=== PATIENT | female | born 1935 | race American Indian/Alaskan Native ===

== ENCOUNTER 2016-11-27 21:49 | Emergency (ER) | payer MEDICARE ==
[2016-11-27 23:03] LABS: Hematocrit 34.7 % (30.3-42.9); Hemoglobin 10.7 gm/dl (10.1-14.3); Mean Corpuscular HGB Conc 31 % (30-34); Mean Corpuscular Hemoglobin 28 pg (28-32); Mean Corpuscular Volume 92 fl (79-97); Platelet Count 174 K/mm3 (140-440); Red Blood Count 3.78 M/mm3 (3.65-5.03); Red Cell Distribution Width 20.5 % (13.2-15.2); White Blood Count 5.7 K/mm3 (4.5-11.0)
[2016-11-27 23:18] LABS: BUN/Creatinine Ratio 5.09; Calcium 9.1 mg/dL (8.4-10.2); Chloride 96.4 mmol/L (98-107); Potassium 3.8 mmol/L (3.6-5.0)
[2016-11-28 00:38] LABS: Anisocytosis 1+; Basophils % (Manual) 0 % (0.0-1.8); Blastocytes % (Manual) 0 %; Diff Status Complete; Elliptocytes Few; Hypochromasia 1+
[2016-11-28 01:40] VITALS: BP 137/65
--- NOTE | 2016-11-30 18:46 | ED Elopement Review ---
ED Pt Elopement review - Results review Lab results: Laboratory Tests 11/27/16 11/27/16 11/28/16 22:44 22:44 01:40 WBC 5.7 RBC 3.78 Hgb 10.7 Hct 34.7 MCV 92 MCH 28 MCHC 31 RDW 20.5 H Plt Count 174 [place] % (Auto) Physically Impaired Teacher Add Manual Diff Complete Total Counted 100 Seg Neuts % (Manual) 55.0 Band Neutrophils % 3.0 Lymphocytes % (Manual) 23.0 Reactive Lymphs % (Man) 0 Monocytes % (Manual) 11.0 H Eosinophils % (Manual) 1.0 Basophils % (Manual) 0 Metamyelocytes % 7.0 Myelocytes % 0 Promyelocytes % 0 Blast Cells % 0 Nucleated RBC % Not Reportable Seg Neutrophils # Man 3.1 Band Neutrophils # 0.2 Lymphocytes # (Manual) 1.3 Abs React Lymphs (Man) 0.0 Monocytes # (Manual) 0.6 Eosinophils # (Manual) 0.1 Basophils # (Manual) 0.0 Metamyelocytes # 0.4 Myelocytes # 0.0 Promyelocytes # 0.0 Blast Cells # 0.0 WBC Morphology Not Reportable Hypersegmented Neuts Not Reportable Hyposegmented Neuts Not Reportable Hypogranular Neuts Not Reportable Smudge Cells Not Reportable Toxic Granulation Not Reportable Toxic Vacuolation Not Reportable Dohle Bodies Not Reportable Pelger-Huet Anomaly Not Reportable Reilly Rods Not Reportable Platelet Estimate Appears normal Clumped Platelets Not Reportable Plt Clumps, EDTA Not Reportable Large Platelets Not Reportable Giant Platelets Not Reportable Platelet Satelliting Not Reportable Plt Morphology Comment Not Reportable RBC Morphology Not Reportable Dimorphic RBCs Not Reportable Polychromasia Not Reportable Hypochromasia 1+ Poikilocytosis Not Reportable Anisocytosis 1+ Microcytosis Not Reportable Macrocytosis Not Reportable Spherocytes Not Reportable Pappenheimer Bodies Not Reportable Sickle Cells Not Reportable Target Cells Not Reportable Tear Drop Cells Not Reportable Ovalocytes Not Reportable Helmet Cells Not Reportable Goodrich-Obion Bodies Not Reportable [place] Rings Not Reportable Jayme Cells Not Reportable Bite Cells Not Reportable Crenated Cell Not Reportable Elliptocytes Few Acanthocytes (Spur) Not Reportable Rouleaux Not Reportable Hemoglobin C Crystals Not Reportable Schistocytes Not Reportable Malaria parasites Not Reportable Elia Bodies Not Reportable Hem Pathologist Commnt No Sodium 141 Potassium 3.8 Chloride 96.4 L Carbon Dioxide 31 H Anion Gap 17 BUN 27 H Creatinine 5.3 H Estimated GFR 9 BUN/Creatinine Ratio 5.09 Glucose 156 H Calcium 9.1 Troponin T 0.044 H 0.044 H Triglycerides 72 Cholesterol 145 LDL Cholesterol Direct 53 HDL Cholesterol 78 H Cholesterol/HDL Ratio 1.85 11/28/16 04:13 WBC RBC Hgb Hct MCV MCH MCHC RDW Plt Count [place] % (Auto) Add Manual Diff Total Counted Seg Neuts % (Manual) Band Neutrophils % Lymphocytes % (Manual) Reactive Lymphs % (Man) Monocytes % (Manual) Eosinophils % (Manual) Basophils % (Manual) Metamyelocytes % Myelocytes % Promyelocytes % Blast Cells % Nucleated RBC % Seg Neutrophils # Man Band Neutrophils # Lymphocytes # (Manual) Abs React Lymphs (Man) Monocytes # (Manual) Eosinophils # (Manual) Basophils # (Manual) Metamyelocytes # Myelocytes # Promyelocytes # Blast Cells # WBC Morphology Hypersegmented Neuts Hyposegmented Neuts Hypogranular Neuts Smudge Cells Toxic Granulation Toxic Vacuolation Dohle Bodies Pelger-Huet Anomaly Reilly Rods Platelet Estimate Clumped Platelets Plt Clumps, EDTA Large Platelets Giant Platelets Platelet Satelliting Plt Morphology Comment RBC Morphology Dimorphic RBCs Polychromasia Hypochromasia Poikilocytosis Anisocytosis Microcytosis Macrocytosis Spherocytes Pappenheimer Bodies Sickle Cells Target Cells Tear Drop Cells Ovalocytes Helmet Cells Goodrich-Obion Bodies [place] Rings Jayme Cells Bite Cells Crenated Cell Elliptocytes Acanthocytes (Spur) Rouleaux Hemoglobin C Crystals Schistocytes Malaria parasites Elia Bodies Hem Pathologist Commnt Sodium Potassium Chloride Carbon Dioxide Anion Gap BUN Creatinine Estimated GFR BUN/Creatinine Ratio Glucose Calcium Troponin T 0.043 H Triglycerides Cholesterol LDL Cholesterol Direct HDL Cholesterol Cholesterol/HDL Ratio - Call Back decision Pt Call Back Decision: Pt to F/U with PMD
== END 2016-11-28 05:30 | disposition left against medical advice (07) ==
LOC: ED 21:49
DX: R07.9 Chest pain, unspecified (principal); M79.605 Pain in left leg; Z53.21 Procedure and treatment not carried out due to patient leaving prior to being seen by health care provider
CPT/HCPCS: 36415; 80048; 80061; 84484; 85007; 85025; 93005; 93010

== ENCOUNTER 2016-12-19 05:18 | Inpatient (IN) | payer MEDICAID, MEDICARE ==
[2016-12-19] MEDS ORDERED: DUONEB 0.5 MG-3 MG/3 ML SOLN IH ONE ×3 (05:34→12:30)
[2016-12-19 06:02] LABS: Basophils % (Auto) 0.5 % (0.0-1.8); Eosinophils % (Auto) 1.2 % (0.0-4.3); Mean Corpuscular HGB Conc 31 % (30-34); Mean Corpuscular Hemoglobin 28 pg (28-32); Mean Corpuscular Volume 91 fl (79-97); Platelet Count 166 K/mm3 (140-440); Red Blood Count 4.06 M/mm3 (3.65-5.03); White Blood Count 6.8 K/mm3 (4.5-11.0)
[2016-12-19 06:03] LABS: Hemoglobin 11.3 gm/dl (10.1-14.3); Red Cell Distribution Width 20.8 % (13.2-15.2)
[2016-12-19 06:20] LABS: BUN/Creatinine Ratio 5.73; Calcium 8.6 mg/dL (8.4-10.2); Chloride 94.5 mmol/L (98-107); Potassium 5.2 mmol/L (3.6-5.0)
--- NOTE | 2016-12-19 06:27 | Emergency Department Report ---
ED Shortness of Breath HPI - General Chief Complaint: Dyspnea/Respdistress Stated Complaint: MILAN Time Seen by Provider: 12/19/16 06:13 Source: patient Mode of arrival: Ambulatory Limitations: Language Barrier - History of Present Illness Initial Comments: 81-year-old female presents to the emergency department via EMS for evaluation of shortness of breath. History is obtained from the patient's daughter due to a language barrier, patient only speaks Czech. Patient was scheduled for dialysis this morning per her usual routine. Upon awakening this morning at approximately 4 AM, the patient was having difficulty breathing. There was no chest pain. There has been no cough. There are no other complaints. MD Complaint: shortness of breath -: Sudden, This morning Time: 04:00 Severity: moderate Pain Scale: 0 Consistency: constant Improves With: nothing Worsens With: nothing Known History Of: congestive heart failure, diabetes Treatments Prior to Arrival: oxygen - Related Data Home Medications Medication Instructions Recorded Confirmed Last Taken Allopurinol [Zyloprim] 100 mg PO QDAY 12/13/14 12/05/16 11/14/15 Amlodipine Besylate [Norvasc] 10 mg PO DAILY 12/13/14 12/05/16 11/14/15 Cinacalcet HCl [Sensipar] 60 mg PO DAILY 12/13/14 12/05/16 11/14/15 Gabapentin 300 mg PO QDAY 12/13/14 12/05/16 11/14/15 Rosuvastatin (Nf) [Crestor] 20 mg PO QHS 12/13/14 12/05/16 11/14/15 Sevelamer Carbonate [Renvela] 800 mg PO TIDWM 12/13/14 12/05/16 11/14/15 Previous Rx's Medication Instructions Recorded Last Taken Type Pantoprazole [Protonix] 40 mg PO QDAY #30 tablet 12/09/16 Unknown Rx Allergies Allergy/AdvReac Type Severity Reaction Status Date / Time EDI Inhibitors Allergy Unknown Verified 08/26/15 11:37 chloroquine Allergy Itching Verified 12/13/14 09:27 Penicillins Allergy Unknown Verified 08/26/15 11:37 vancomycin Allergy Angioedema Verified 12/13/14 09:27 ED Review of Systems ROS: Stated complaint: MILAN Other details as noted in HPI Comment: All other systems reviewed and negative Respiratory: shortness of breath ED Past Medical Hx - Past Medical History Previous Medical History?: Yes Hx Hypertension: Yes Hx Heart Attack/AMI: No Hx Congestive Heart Failure: Yes Hx Diabetes: Yes Hx Deep Vein Thrombosis: No Hx Renal Disease: Yes (ESRD, dialysis Tues, Thurs, Sat) Additional medical history: gout, glaucoma, cataracts - Surgical History Past Surgical History?: Yes Hx Coronary Stent: No Hx Pacemaker: No Hx Internal Defibrillator: No Additional Surgical History: fistula to left upper thigh - Family History Family history: no significant - Social History Smoking Status: Never Smoker Substance Use Type: None - Medications Home Medications: Home Medications Medication Instructions Recorded Confirmed Last Taken Type Allopurinol [Zyloprim] 100 mg PO QDAY 12/13/14 12/05/16 11/14/15 History Amlodipine Besylate [Norvasc] 10 mg PO DAILY 12/13/14 12/05/16 11/14/15 History Cinacalcet HCl [Sensipar] 60 mg PO DAILY 12/13/14 12/05/16 11/14/15 History Gabapentin 300 mg PO QDAY 12/13/14 12/05/16 11/14/15 History Rosuvastatin (Nf) [Crestor] 20 mg PO QHS 12/13/14 12/05/16 11/14/15 History Sevelamer Carbonate [Renvela] 800 mg PO TIDWM 12/13/14 12/05/16 11/14/15 History Pantoprazole [Protonix] 40 mg PO QDAY #30 tablet 12/09/16 Unknown Rx ED Physical Exam - General Limitations: Language Barrier General appearance: alert, in distress (mild respiratory distress) - Head Head exam: Present: atraumatic, normocephalic - Eye Eye exam: Present: normal appearance, PERRL, EOMI - ENT ENT exam: Present: normal exam, normal orophraynx, mucous membranes moist - Neck Neck exam: Present: normal inspection, full ROM. Absent: tenderness - Respiratory Respiratory exam: Present: respiratory distress (mild tachypnea), wheezes ( diffuse anterior) - Cardiovascular Cardiovascular Exam: Present: regular rate, normal rhythm, normal heart sounds - GI/Abdominal GI/Abdominal exam: Present: soft, normal bowel sounds. Absent: distended, tenderness - Extremities Exam Extremities exam: Present: normal inspection, full ROM. Absent: tenderness - Back Exam Back exam: Present: normal inspection, full ROM. Absent: tenderness - Neurological Exam Neurological exam: Present: alert, oriented X3. Absent: motor sensory deficit - Skin Skin exam: Present: warm, dry, intact ED Course Vital Signs 12/19/16 12/19/16 12/19/16 05:25 05:27 05:29 Pulse Rate 91 H 90 90 Pulse Rate [ Anterior Bilateral Throughout] Respiratory 23 24 23 Rate Respiratory Rate [Anterior Bilateral Throughout] Blood Pressure 198/96 198/96 O2 Sat by Pulse 94 91 94 Oximetry 12/19/16 12/19/16 12/19/16 05:30 05:31 05:35 Pulse Rate 90 89 Pulse Rate [ Anterior Bilateral Throughout] Respiratory 25 H 23 Rate Respiratory Rate [Anterior Bilateral Throughout] Blood Pressure 200/96 200/96 O2 Sat by Pulse 93 94 95 Oximetry 12/19/16 12/19/16 12/19/16 05:40 05:58 06:25 Pulse Rate 89 Pulse Rate [ 89 89 Anterior Bilateral Throughout] Respiratory 20 Rate Respiratory 25 H 22 Rate [Anterior Bilateral Throughout] Blood Pressure O2 Sat by Pulse 96 Oximetry ED Medical Decision Making - Lab Data Result diagrams: 12/19/16 05:47 12/19/16 05:47 - EKG Data -: EKG Interpreted by Me EKG shows normal: sinus rhythm, axis, intervals, QRS complexes, ST-T waves Rate: normal - EKG Data When compared to previous EKG there are: no significant change Interpretation: normal EKG, unchanged when compared t (12/05/2016) - Radiology Data Radiology results: image reviewed interpreted by me: Chest x-ray reveals mild pulmonary edema with unchanged probable left pleural effusion. - Medical Decision Making Lab and imaging results reviewed and discussed with the patient's family. I have spoken with Dr. Beasley, nephrology. Patient is being arranged for inpatient dialysis. Patient is to be admitted by the hospitalist. - Differential Diagnosis volume overload, CHF, electrolyte abnormality Critical care attestation.: If time is entered above; I have spent that time in minutes in the direct care of this critically ill patient, excluding procedure time. ED Disposition Clinical Impression: ESRD needing dialysis Volume overload Qualifiers: Hypervolemia type: other Qualified Code(s): E87.79 - Other fluid overload Disposition: OP ADMITTED IP TO THIS HOSP Is pt being admited?: Yes Condition: Stable Referrals: PRIMARY CARE, [Primary Care Provider] - 3-5 Days Time of Disposition: 06:48
[2016-12-19 06:49] LABS: ISTAT Base Excess 7; ISTAT HCO3 31.9; ISTAT PCO2 52.1 (35-45); ISTAT PH 7.395 (7.35-7.45); ISTAT PO2 53 (80-105); ISTAT SO2 86; ISTAT TCO2 33
--- NOTE | 2016-12-19 06:50 | Admit Criteria Form ---
Admission Criteria Documentation: HEART FAILURE: COMMON COMPLICATIONS Clinical Indications for Inpatient Care (Place 'X' for any and all applicable criteria): Ongoing inpatient care may be indicated for heart failure with ANY ONE of the following (1)(2)(3)(4)(5): [ ]I. Ongoing need for care for primary condition requiring frequent therapy adjustments because of changes in cardiac function (eg, drug dosage changes for drugs that are renally metabolized) [ ]II. New-onset heart failure [ ]III. Heart failure with decreased urine output not responsive to attempts to optimize volume status [ ]IV. Acute cardiac ischemia causing or associated with failure [X ]V. Complications of heart failure, including ANY ONE of the following: [ ]a) Pericardial effusion [ ]b) Symptomatic pleural effusion [ ]c) O2 saturation <90% or PO2 < 60 mm Hg (8.0 kPa) on room air or require baseline supplemental O2 [ ]d) Tachypnea [X ]e) Dyspnea [ ]f) Syncope [ ]g) Change in mental status [ ]h) Acute renal insufficiency that is severe (reduction of more than 50% in estimated glomerular filtration rate from baseline) or progressive reduction of more than 25% in estimated glomerular filtration rate from baseline, with creatinine continuing to rise) [ ]i) Hemodynamic instability [ ]j) Anasarca [ ]k) Clinically significant metabolic abnormalities due to heart failure (eg, new-onset metabolic acidosis) Extended stay beyond goal length of stay for primary condition may be needed until ALL of the following are present(1)(3): [ ]a) Stable and effective diuretic regimen established (or patient on stable dialysis regimen if in chronic renal failure) [ ]b) Breathing comfortably at rest [ ]c) Saturation of arterial oxygen greater than 90% or at acceptable baseline [ ]d) Pulmonary edema absent or improved [ ]e) Hemodynamic stability [ ]f) Volume status acceptable on oral medication [ ]g) Peripheral or sacral edema absent or improved [ ]h) Renal function stable and manageable at a lower level of care [ ]i) Complications (eg, pleural effusion) resolved or manageable at a lower level of care [ ]j) Patient or caregiver has received written discharge instructions or educational material addressing activity level, diet, discharge medications, follow-up appointment, weight monitoring, and what to do if symptoms worsen The original [employer] [email or web address] content created by [employer] has been revised. The portions of the content which have been revised are identified through the use of italic text or in bold, and [facility] has neither reviewed nor approved the modified material.All other unmodified content is copyright [facility]. Please see references footnoted in the original [facility] edition 2016 Admission Criteria Met: Yes
--- NOTE | 2016-12-19 06:51 | Admit Criteria Form ---
Admission Criteria Documentation: RENAL FAILURE, CHRONIC Clinical Indications for Admission to Inpatient Care (Place 'X' for any and all applicable criteria): Admission is indicated for ANY ONE of the following (1)(2)(3)(4)(5): [X]I. Inpatient admission required rather than observation care (Use Renal Failure, Chronic: Observation Care Criteria as appropriate) because of ANY ONE of the following: [X]a)Volume overload or uremic symptoms (eg, clinically significant pulmonary edema, hypertension, pericarditis, acidosis) too severe for, or not responsive (eg, for over 24 hours) to emergency department or observation care dialysis or treatment regimen (11) [ ]b) Hemodynamic instability that is severe or persistent [ ]c) Respiratory distress that is severe or persistent (11) [ ]d) Clinically significant electrolyte abnormality that requires inpatient care (eg,hyperkalemia with severe ECG findings)[B] [ ]e) Supplement O2 or respiratory therapy for over 24hrs that is performable only in acute inpatient setting [ ]f) Continuous IV infusion of anticoagulation, platelet inhibitor, vasoactive, or Antiarrhythmic medication (15), [ ]g) Pulmonary artery catheter monitoring [ ]h) Temporary pacemaker placement [ ]i) Emergent pericardiocentesis [ ]j) Other condition, treatment or monitoring requiring inpatient admission [ ]II. Unexplained syncope [A] [ ]III. Recurrent seizures [ ]IV. Severe infections not treatable in outpatient setting (eg, peritonitis)(9 ) [ ]V. Cardiac arrhythmias of immediate concern [ ]. Encephalopathy [ ]VII.Bleeding abnormalities (eg, platelet dysfunction) with active (eg, gastrointestinal) bleeding Extended stay beyond goal length of stay may be needed for (3)(4)(35)(36): [ ]a) Continuing uremic complications [ ]b) Comorbidities or complications The original [employer] content created by [employer] has been revised. The portions of the content which have been revised are identified through the use of italic text or in bold, and [facility] [email or web address] has neither reviewed nor approved the modified material. All other unmodified content is copyright [employer]. Please see references footnoted in the original [employer] edition 2016
[2016-12-19] MEDS ORDERED: NACL 0.9% 100 ML IV PRN (07:10)
--- NOTE | 2016-12-19 07:33 | XRay Report ---
Single view chest: Compared to 12/06/16. History: Shortness of breath. Findings: Marked cardiomegaly. Trachea is midline. Pleural diaphragmatic adhesions the left lung. Suspicion of segmental atelectasis or pneumonitis right lower lobe. Impression: Suspicion of atelectasis or pneumonitis right lower lobe.
--- NOTE | 2016-12-19 08:02 | History and Physical Report ---
History of Present Illness Date of examination: 12/19/16 History of present illness: 81-year-old female presents to the emergency department via EMS for evaluation of shortness of breath. History is obtained from the patient's daughter due to a language barrier, patient only speaks Czech. Patient was scheduled for dialysis this morning per her usual routine. Upon awakening this morning at approximately 4 AM, the patient was having difficulty breathing. There was no chest pain. There has been no cough. There are no other complaints. Past History Past Medical History: hypertension, hyperlipidemia Medications and Allergies Allergies Allergy/AdvReac Type Severity Reaction Status Date / Time EDI Inhibitors Allergy Unknown Verified 08/26/15 11:37 chloroquine Allergy Itching Verified 12/13/14 09:27 Penicillins Allergy Unknown Verified 08/26/15 11:37 vancomycin Allergy Angioedema Verified 12/13/14 09:27 Home Medications Medication Instructions Recorded Confirmed Last Taken Type Allopurinol [Zyloprim] 100 mg PO QDAY 12/13/14 12/05/16 11/14/15 History Amlodipine Besylate [Norvasc] 10 mg PO DAILY 12/13/14 12/05/16 11/14/15 History Cinacalcet HCl [Sensipar] 60 mg PO DAILY 12/13/14 12/05/16 11/14/15 History Gabapentin 300 mg PO QDAY 12/13/14 12/05/16 11/14/15 History Rosuvastatin (Nf) [Crestor] 20 mg PO QHS 12/13/14 12/05/16 11/14/15 History Sevelamer Carbonate [Renvela] 800 mg PO TIDWM 12/13/14 12/05/16 11/14/15 History Pantoprazole [Protonix] 40 mg PO QDAY #30 tablet 12/09/16 Unknown Rx Active Meds: Active Medications Sodium Chloride (Nacl 0.9%) 100 mls @ 999 mls/hr IV SIM PRN PRN Reason: Hypotension Exam - Constitutional Vitals: Temp Pulse Resp BP Pulse Ox 89 20 200/96 96 12/19/16 06:25 12/19/16 06:25 12/19/16 05:31 12/19/16 06:25 Results - Labs CBC & Chem 7: 12/19/16 05:47 12/19/16 05:47 Labs: Laboratory Last Values WBC 6.8 K/mm3 (4.5-11.0) 12/19/16 05:47 RBC 4.06 M/mm3 (3.65-5.03) 12/19/16 05:47 Hgb 11.3 gm/dl (10.1-14.3) 12/19/16 05:47 Hct 37.0 % (30.3-42.9) 12/19/16 05:47 MCV 91 fl (79-97) 12/19/16 05:47 MCH 28 pg (28-32) 12/19/16 05:47 MCHC 31 % (30-34) 12/19/16 05:47 RDW 20.8 % (13.2-15.2) H 12/19/16 05:47 Plt Count 166 K/mm3 (140-440) 12/19/16 05:47 Lymph % (Auto) 9.3 % (13.4-35.0) L 12/19/16 05:47 [place] % (Auto) 15.2 % (0.0-7.3) H 12/19/16 05:47 Eos % (Auto) 1.2 % (0.0-4.3) 12/19/16 05:47 Baso % (Auto) 0.5 % (0.0-1.8) 12/19/16 05:47 Lymph # 0.6 K/mm3 (1.2-5.4) L 12/19/16 05:47 [place] # 1.0 K/mm3 (0.0-0.8) H 12/19/16 05:47 Eos # 0.1 K/mm3 (0.0-0.4) 12/19/16 05:47 Baso # 0.0 K/mm3 (0.0-0.1) 12/19/16 05:47 Seg Neutrophils % 73.8 % (40.0-70.0) H 12/19/16 05:47 Seg Neutrophils # 5.0 K/mm3 (1.8-7.7) 12/19/16 05:47 POC ABG pH 7.395 (7.35-7.45) 12/19/16 06:28 POC ABG pCO2 52.1 (35-45) H 12/19/16 06:28 POC ABG pO2 53 (80-105) L 12/19/16 06:28 POC ABG HCO3 31.9 12/19/16 06:28 POC ABG Total CO2 33 12/19/16 06:28 POC ABG O2 Sat 86 12/19/16 06:28 POC ABG Base Excess 7 12/19/16 06:28 FiO2 32 % 12/19/16 06:28 Sodium 139 mmol/L (137-145) 12/19/16 05:47 Potassium 5.2 mmol/L (3.6-5.0) H 12/19/16 05:47 Chloride 94.5 mmol/L (98-107) L 12/19/16 05:47 Carbon Dioxide 30 mmol/L (22-30) 12/19/16 05:47 Anion Gap 20 mmol/L 12/19/16 05:47 BUN 47 mg/dL (7-17) H 12/19/16 05:47 Creatinine 8.2 mg/dL (0.7-1.2) H 12/19/16 05:47 Estimated GFR 6 ml/min 12/19/16 05:47 BUN/Creatinine Ratio 5.73 % 12/19/16 05:47 Glucose 116 mg/dL (65-100) H 12/19/16 05:47 Calcium 8.6 mg/dL (8.4-10.2) 12/19/16 05:47 Troponin T 0.037 ng/mL (0.00-0.029) H 12/19/16 05:47 Triglycerides 41 mg/dL (2-149) 12/19/16 05:47 Cholesterol 144 mg/dL (50-199) 12/19/16 05:47 LDL Cholesterol Direct 56 mg/dL (50-130) 12/19/16 05:47 HDL Cholesterol 80 mg/dL (40-59) H 12/19/16 05:47 Cholesterol/HDL Ratio 1.80 % 12/19/16 05:47
[2016-12-19] MEDS ORDERED: TYLENOL PO PRN (08:05)
[2016-12-19] MEDS ORDERED: PERCOCET 5/325 PO PRN (08:05)
[2016-12-19] MEDS ORDERED: MILK OF MAGNESIA PO PRN (08:05)
[2016-12-19] MEDS ORDERED: ZOFRAN IV PRN (08:05)
[2016-12-19] MEDS ORDERED: DULCOLAX PR PRN (08:05)
[2016-12-19] MEDS ORDERED: NON-FORMULARY (Amlodipine Besylate [Norvasc] 10 MG) PO SCH (10:00)
[2016-12-19] MEDS ORDERED: NON-FORMULARY (Cinacalcet Hcl [Sensipar] 60 MG) PO SCH (10:00)
[2016-12-19] MEDS ORDERED: NACL 0.9 (PRIMING MACHINE ONLY DIALYSIS) MC ONE (13:15)
[2016-12-19] MEDS: RENVELA PO SCH ×2 (15:53→18:40)
[2016-12-19] MEDS: LOVENOX SUB-Q SCH (15:53)
[2016-12-19] MEDS: NORVASC PO SCH (15:54)
[2016-12-19] MEDS: ZYLOPRIM PO SCH (15:54)
[2016-12-19] MEDS: PROTONIX PO SCH (15:55)
[2016-12-19] MEDS: SENSIPAR PO SCH (15:57)
[2016-12-19] MEDS ORDERED: PROVENTIL IH PRN (16:00)
--- NOTE | 2016-12-19 16:01 | Consultation ---
History of Present Illness - Reason for Consult Consult date: 12/19/16 end stage renal disease Requesting physician: GLORIA TOWNSEND - History of Present Illness 81-year-old female presents to the emergency department via EMS for evaluation of shortness of breath. Patient unable to give any history at this time because of language barrier. Information obtained from patient's current chart. Upon awakening this morning at approximately 4 AM, the patient was having difficulty breathing. There was no chest pain. There has been no cough. There are no other complaints. Patient is currently finishing up dialysis. She appears comfortable now. Chest x-ray noted to show some pulmonary infiltrates. Past History Past Medical History: hypertension, hyperlipidemia Past Surgical History: Other (unknown. Patient does have a left thigh graft) Social history: other (unknown) Family history: other (unknown) Medications and Allergies Allergies Allergy/AdvReac Type Severity Reaction Status Date / Time EDI Inhibitors Allergy Unknown Verified 08/26/15 11:37 chloroquine Allergy Itching Verified 12/13/14 09:27 Penicillins Allergy Unknown Verified 08/26/15 11:37 vancomycin Allergy Angioedema Verified 12/13/14 09:27 Home Medications Medication Instructions Recorded Confirmed Last Taken Type Allopurinol [Zyloprim] 100 mg PO QDAY 12/13/14 12/19/16 11/14/15 History Amlodipine Besylate [Norvasc] 10 mg PO DAILY 12/13/14 12/19/16 11/14/15 History Cinacalcet HCl [Sensipar] 60 mg PO DAILY 12/13/14 12/19/16 11/14/15 History Gabapentin 300 mg PO QDAY 12/13/14 12/19/16 11/14/15 History Rosuvastatin (Nf) [Crestor] 20 mg PO QHS 12/13/14 12/19/16 11/14/15 History Sevelamer Carbonate [Renvela] 800 mg PO TIDWM 12/13/14 12/19/16 11/14/15 History Pantoprazole [Protonix] 40 mg PO QDAY #30 tablet 12/09/16 12/19/16 Unknown Rx Active Meds: Active Medications Acetaminophen (Tylenol) 650 mg PO Q4H PRN PRN Reason: Pain MILD(1-3)/Fever >100.5/MEADE Albuterol (Proventil) 2.5 mg IH Q4HRT PRN PRN Reason: Shortness Of Breath Albuterol/Ipratropium (Duoneb 0.5 Mg-3 Mg/3 Ml Soln) 1 ampul IH TIDRT [facility] Allopurinol (Zyloprim) 100 mg PO QDAY [facility] Last Admin: 12/19/16 15:54 Dose: 100 mg Amlodipine Besylate (Norvasc) 10 mg PO DAILY [facility] Last Admin: 12/19/16 15:54 Dose: 10 mg Atorvastatin Calcium (Lipitor) 20 mg PO QHS [facility] Bisacodyl (Dulcolax) 10 mg [place] QDAY PRN PRN Reason: Constipation unrelieved by MOM Cinacalcet (Sensipar) 60 mg PO QDAY [facility] Enoxaparin Sodium (Lovenox) 30 mg SUB-Q QDAY [facility] Last Admin: 12/19/16 15:53 Dose: 30 mg Gabapentin (Neurontin) 300 mg PO QDAY [facility] Sodium Chloride (Nacl 0.9%) 100 mls @ 999 mls/hr IV SIM PRN PRN Reason: Hypotension Magnesium Hydroxide (Milk Of Magnesia) 30 ml PO Q4H PRN PRN Reason: Constipation Ondansetron HCl (Zofran) 4 mg IV Q8H PRN PRN Reason: N/V unrelieved by Reglan Oxycodone/Acetaminophen (Percocet 5/325) 1 tab PO Q6H PRN PRN Reason: Pain, Moderate (4-6) Pantoprazole Sodium (Protonix) 40 mg PO QDAY [facility] Last Admin: 12/19/16 15:55 Dose: 40 mg Sevelamer Carbonate (Renvela) 800 mg PO TIDWM [facility] Last Admin: 12/19/16 15:53 Dose: 800 mg Review of Systems All systems: negative (unable to obtain details due to language barrier) Exam - Vital Signs Vital signs: Vital Signs Pulse Resp Pulse Ox 91 H 23 94 12/19/16 05:25 12/19/16 05:25 12/19/16 05:25 - General Appearance General appearance: well-developed, well-nourished, appears stated age, other ( currently has 40% Ventimask in place) EENT: PERRL, mucous membranes moist Neck: Present: neck supple, trachea midline. Absent: JVD/HJR, Masses Respiratory: Clear to Ascultation Heart: regular, normal heart rate, S1S2, no murmurs Gastrointestinal: Present: normal, normoactive bowel sounds Integumentary: no rash, other (left thigh AV graft. Cannulated for dialysis) Results - Lab Results 12/19/16 05:47 12/19/16 05:47 Most recent lab results Calcium 8.6 mg/dL (8.4-10.2) 12/19/16 05:47 Assessment and Plan Impression * End-stage renal disease on maintenance hemodialysis * Shortness of breath. Most likely secondary to volume overload as well as pneumonia * Mild hyperkalemia * Hypertension * Hyperlipidemia * Anemia secondary to ESRD Recommendations * Hemodialysis as being done. Remove fluid as tolerated * Antibiotic therapy as per primary team * Adjust diet and meds for ESRD state * Avoid nephrotoxins * Procrit with dialysis * Binders with diet * Thank you very much for the consultation. Shall follow along with you
[2016-12-19] MEDS: NEURONTIN PO SCH (16:09)
--- NOTE | 2016-12-19 17:59 | History and Physical Report ---
History of Present Illness Date of examination: 12/19/16 Date of admission: 12/19/16 06:49 Chief complaint: Shortness of breath History of present illness: [age]-year-old female with a history of hypertension, end-stage renal disease, gout, questionable congestive heart failure presents to the ED with a chief complaint of shortness of breath. Patient states she awakened 4:00 this morning with difficulty breathing. Therefore patient presented to ED. Upon presentation patient did not chest pain denied palpitations however complained of shortness of breath and dyspnea on minimal exertion. Patient was uncomfortable placed on BiPAP and remained stable. Follow-up exam after hemodialysis patient feels much better able to communicate and answer the questions above. Past History Past Medical History: DVT, ESRD, GERD, heart failure, hypertension, hyperlipidemia. denies: acute DC, atrial fib, arrhythmia, anemia, arthritis, CAD, COPD Past Surgical History: Other (unknown. Patient does have a left thigh graft) Social history: other (unknown). denies: single, Family history: other (unknown) Medications and Allergies Allergies Allergy/AdvReac Type Severity Reaction Status Date / Time EDI Inhibitors Allergy Unknown Verified 08/26/15 11:37 chloroquine Allergy Itching Verified 12/13/14 09:27 Penicillins Allergy Unknown Verified 08/26/15 11:37 vancomycin Allergy Angioedema Verified 12/13/14 09:27 Home Medications Medication Instructions Recorded Confirmed Last Taken Type Allopurinol [Zyloprim] 100 mg PO QDAY 12/13/14 12/19/16 11/14/15 History Amlodipine Besylate [Norvasc] 10 mg PO DAILY 12/13/14 12/19/16 11/14/15 History Cinacalcet HCl [Sensipar] 60 mg PO DAILY 12/13/14 12/19/16 11/14/15 History Gabapentin 300 mg PO QDAY 12/13/14 12/19/16 11/14/15 History Rosuvastatin (Nf) [Crestor] 20 mg PO QHS 12/13/14 12/19/16 11/14/15 History Sevelamer Carbonate [Renvela] 800 mg PO TIDWM 12/13/14 12/19/16 11/14/15 History Pantoprazole [Protonix] 40 mg PO QDAY #30 tablet 03/13/17 03/23/17 Unknown Rx Active Meds: Active Medications Acetaminophen (Tylenol) 650 mg PO Q4H PRN PRN Reason: Pain MILD(1-3)/Fever >100.5/MEADE Albuterol (Proventil) 2.5 mg IH Q4HRT PRN PRN Reason: Shortness Of Breath Albuterol/Ipratropium (Duoneb 0.5 Mg-3 Mg/3 Ml Soln) 1 ampul IH TIDRT [facility] Allopurinol (Zyloprim) 100 mg PO QDAY [facility] Last Admin: 12/19/16 15:54 Dose: 100 mg Amlodipine Besylate (Norvasc) 10 mg PO DAILY [facility] Last Admin: 12/19/16 15:54 Dose: 10 mg Atorvastatin Calcium (Lipitor) 20 mg PO QHS [facility] Bisacodyl (Dulcolax) 10 mg [place] QDAY PRN PRN Reason: Constipation unrelieved by MOM Cinacalcet (Sensipar) 60 mg PO QDAY [facility] Last Admin: 12/19/16 15:57 Dose: 60 mg Enoxaparin Sodium (Lovenox) 30 mg SUB-Q QDAY [facility] Last Admin: 12/19/16 15:53 Dose: 30 mg Gabapentin (Neurontin) 300 mg PO QDAY [facility] Last Admin: 12/19/16 16:09 Dose: 300 mg Sodium Chloride (Nacl 0.9%) 100 mls @ 999 mls/hr IV SIM PRN PRN Reason: Hypotension Magnesium Hydroxide (Milk Of Magnesia) 30 ml PO Q4H PRN PRN Reason: Constipation Ondansetron HCl (Zofran) 4 mg IV Q8H PRN PRN Reason: N/V unrelieved by Reglan Oxycodone/Acetaminophen (Percocet 5/325) 1 tab PO Q6H PRN PRN Reason: Pain, Moderate (4-6) Pantoprazole Sodium (Protonix) 40 mg PO QDAY [facility] Last Admin: 12/19/16 15:55 Dose: 40 mg Sevelamer Carbonate (Renvela) 800 mg PO TIDWM [facility] Last Admin: 12/19/16 15:53 Dose: 800 mg Review of Systems Constitutional: fatigue, weakness, malaise, no weight loss, no weight gain, no fever, no chills, no poor appetite Ears, nose, mouth and throat: no deferred, no ear pain, no tinnitis, no nose pain, no nasal congestion, no epistaxis, no bleeding gums, no mouth pain, no hoarseness, no sore throat Breasts: deferred Cardiovascular: shortness of breath, dyspnea on exertion, no chest pain, no orthopnea, no palpitations, no rapid/irregular heart beat, no edema, no syncope , no lightheadedness, no paroxysmal nocturnal dyspnea, no claudication, no phlebitis, no high blood pressure Respiratory: shortness of breath, dyspnea on exertion, congestion, no cough, no cough with sputum, no excessive sputum, no hemoptysis, no wheezing, no pleurisy , no pain, no pain on inspiration, no sleep apnea, no home oxygen Gastrointestinal: no abdominal pain, no vomiting, no constipation, no BRBPR, no hematochezia, no loss of appetite, no early satiety Genitourinary Female: no dysmenorrhea, no flank pain, no incomplete emptying, no urge incontinence, no vaginal discharge Exam - Constitutional Vitals: Temp Pulse Resp BP Pulse Ox 98.9 F 79 20 123/65 99 12/19/16 15:00 12/19/16 15:00 12/19/16 15:00 12/19/16 15:00 12/19/16 12:39 General appearance: Present: mild distress - EENT Eyes: Present: PERRL ENT: hearing intact, clear oral mucosa - Neck Neck: Present: supple, normal ROM - Respiratory Respiratory effort: normal Respiratory: bilateral: diminished, rales - Cardiovascular Rhythm: regular Heart Sounds: Present: S1 & S2, systolic murmur - Extremities Extremities: pulses symmetrical, No edema Extremity abnormal: edema, other (S1 pitting edema) Peripheral Pulses: within normal limits - Abdominal General gastrointestinal: Present: soft, non-tender, non-distended, normal bowel sounds - Rectal Rectal Exam: deferred - Integumentary Integumentary: Present: clear, warm, dry - Musculoskeletal Musculoskeletal: gait normal, strength equal bilaterally - Psychiatric Psychiatric: appropriate mood/affect, intact judgment & insight - Neurologic Neurologic: CNII-XII intact Results - Labs CBC & Chem 7: 12/19/16 05:47 12/19/16 05:47 Labs: Laboratory Last Values WBC 6.8 K/mm3 (4.5-11.0) 12/19/16 05:47 RBC 4.06 M/mm3 (3.65-5.03) 12/19/16 05:47 Hgb 11.3 gm/dl (10.1-14.3) 12/19/16 05:47 Hct 37.0 % (30.3-42.9) 12/19/16 05:47 MCV 91 fl (79-97) 12/19/16 05:47 MCH 28 pg (28-32) 12/19/16 05:47 MCHC 31 % (30-34) 12/19/16 05:47 RDW 20.8 % (13.2-15.2) H 12/19/16 05:47 Plt Count 166 K/mm3 (140-440) 12/19/16 05:47 Lymph % (Auto) 9.3 % (13.4-35.0) L 12/19/16 05:47 [place] % (Auto) 15.2 % (0.0-7.3) H 12/19/16 05:47 Eos % (Auto) 1.2 % (0.0-4.3) 12/19/16 05:47 Baso % (Auto) 0.5 % (0.0-1.8) 12/19/16 05:47 Lymph # 0.6 K/mm3 (1.2-5.4) L 12/19/16 05:47 [place] # 1.0 K/mm3 (0.0-0.8) H 12/19/16 05:47 Eos # 0.1 K/mm3 (0.0-0.4) 12/19/16 05:47 Baso # 0.0 K/mm3 (0.0-0.1) 12/19/16 05:47 Seg Neutrophils % 73.8 % (40.0-70.0) H 12/19/16 05:47 Seg Neutrophils # 5.0 K/mm3 (1.8-7.7) 12/19/16 05:47 POC ABG pH 7.395 (7.35-7.45) 12/19/16 06:28 POC ABG pCO2 52.1 (35-45) H 12/19/16 06:28 POC ABG pO2 53 (80-105) L 12/19/16 06:28 POC ABG HCO3 31.9 12/19/16 06:28 POC ABG Total CO2 33 12/19/16 06:28 POC ABG O2 Sat 86 12/19/16 06:28 POC ABG Base Excess 7 12/19/16 06:28 FiO2 32 % 12/19/16 06:28 Sodium 139 mmol/L (137-145) 12/19/16 05:47 Potassium 5.2 mmol/L (3.6-5.0) H 12/19/16 05:47 Chloride 94.5 mmol/L (98-107) L 12/19/16 05:47 Carbon Dioxide 30 mmol/L (22-30) 12/19/16 05:47 Anion Gap 20 mmol/L 12/19/16 05:47 BUN 47 mg/dL (7-17) H 12/19/16 05:47 Creatinine 8.2 mg/dL (0.7-1.2) H 12/19/16 05:47 Estimated GFR 6 ml/min 12/19/16 05:47 BUN/Creatinine Ratio 5.73 % 12/19/16 05:47 Glucose 116 mg/dL (65-100) H 12/19/16 05:47 Calcium 8.6 mg/dL (8.4-10.2) 12/19/16 05:47 Troponin T 0.037 ng/mL (0.00-0.029) H 12/19/16 05:47 Triglycerides 41 mg/dL (2-149) 12/19/16 05:47 Cholesterol 144 mg/dL (50-199) 12/19/16 05:47 LDL Cholesterol Direct 56 mg/dL (50-130) 12/19/16 05:47 HDL Cholesterol 80 mg/dL (40-59) H 12/19/16 05:47 Cholesterol/HDL Ratio 1.80 % 12/19/16 05:47 - Imaging and Cardiology EKG: image reviewed Chest x-ray: image reviewed Assessment and Plan Advance Directives: Yes Plan of care discussed with patient/family: Yes - Patient Problems (1) ESRD needing dialysis Current Visit: Yes Status: Acute Plan to address problem: End-stage renal disease patient undergoes dialysis Friday. Obtain renal consult. (2) Volume overload Current Visit: Yes Status: Acute Qualifiers: Hypervolemia type: other Qualified Code(s): E87.79 - Other fluid overload Plan to address problem: Volume overload most likely secondary to limited hemodialysis versus a pneumonia. Patient was chest x-ray consistent with bilateral infiltrates. Could be pneumonia versus volume overload from renal failure. We'll treat with empiric antibodies and hemodialysis. (3) Acute on chronic systolic CHF (congestive heart failure) Current Visit: No Status: Acute Plan to address problem: At this particular time patient has no JVD no lymphadenopathy only trace edema. Physical exam is not consistent with acute congestive heart failure at this particular time points more toward renal failure and volume overload. (4) ESRD (end stage renal disease) Current Visit: No Status: Acute (5) Pneumonia Current Visit: Yes Status: Acute Qualifiers: Pneumonia type: P Aspiration pneumonia type: A Laterality: L Lung location: L Plan to address problem: Patient possibly with pneumonia with infiltrates. We'll treat empirically with Rocephin for now. After she's diuresis can obtain another chest x-ray and see whether or not the infiltrates have resolved.
[2016-12-19] MEDS: DUONEB 0.5 MG-3 MG/3 ML SOLN IH SCH ×2 (18:25→20:30)
[2016-12-19] MEDS ORDERED: NON-FORMULARY (Rosuvastatin (Nf) 20 MG) PO SCH (22:00)
[2016-12-20 06:48] LABS: Hematocrit 33.5 % (30.3-42.9); Hemoglobin 10.2 gm/dl (10.1-14.3); Mean Corpuscular HGB Conc 31 % (30-34); Mean Corpuscular Hemoglobin 28 pg (28-32); Mean Corpuscular Volume 91 fl (79-97); Platelet Count 148 K/mm3 (140-440); Red Blood Count 3.67 M/mm3 (3.65-5.03); White Blood Count 7.2 K/mm3 (4.5-11.0)
[2016-12-20 06:50] LABS: Red Cell Distribution Width 21.3 % (13.2-15.2)
[2016-12-20 07:12] LABS: Albumin 3.2 g/dL (3.9-5); Albumin/Globulin Ratio 0.8 %; BUN/Creatinine Ratio 4.3; Bilirubin,Total 0.6 mg/dL (0.1-1.2); Calcium 8.2 mg/dL (8.4-10.2); Chloride 94.8 mmol/L (98-107); Potassium 5.2 mmol/L (3.6-5.0); Total Protein 7.2 g/dL (6.3-8.2)
[2016-12-20] MEDS: DUONEB 0.5 MG-3 MG/3 ML SOLN IH SCH ×3 (07:40→20:22)
[2016-12-20] MEDS: RENVELA PO SCH ×2 (08:00→12:04)
[2016-12-20 08:25] LABS: Blastocytes % (Manual) 0 %
[2016-12-20 08:26] LABS: Anisocytosis 1+; Basophils % (Manual) 0 % (0.0-1.8); Diff Status Complete; Eosinophils % (Manual) 0 % (0.0-4.3); Ovalocytes Few; Platelet Estimate Appears Decreased; Poikilocytosis Few; Target Cells Few
[2016-12-20] MEDS: ZITHROMAX 500 MG in NACL 0.9% 250ML 250 ML IV SCH (10:00)
[2016-12-20] MEDS: NORVASC PO SCH (12:03)
[2016-12-20] MEDS: PROTONIX PO SCH (12:03)
[2016-12-20] MEDS: NEURONTIN PO SCH (12:04)
[2016-12-20] MEDS: LOVENOX SUB-Q SCH (12:04)
[2016-12-20] MEDS: ZYLOPRIM PO SCH (12:05)
[2016-12-20] MEDS: SENSIPAR PO SCH (12:05)
--- NOTE | 2016-12-20 15:32 | Progress Note ---
Assessment and Plan Assessment and plan: Patient is a pleasant 81-year-old female presents to the emergency department via EMS for evaluation of shortness of breath. Patient unable to give any history at this time because of language barrier she is from [place] and speaks-. Information obtained from patient's current chart. Upon awakening this morning at approximately 4 AM, the patient was having difficulty breathing. There was no chest pain. There has been no cough. There are no other complaints. Patient is currently finishing up dialysis. She appears comfortable now. Chest x-ray noted to show some pulmonary infiltrates. She did not miss any dialysis 1) ESRD needing dialysis Current Visit: Yes Status: Acute Plan to address problem: End-stage renal disease patient undergoes dialysis Friday. Nephrology input noted. (2) Volume overload Current Visit: Yes Status: Acute Qualifiers: Hypervolemia type: other Qualified Code(s): E87.79 - Other fluid overload Plan to address problem: Volume overload most likely secondary to limited hemodialysis versus a pneumonia. Patient was chest x-ray consistent with bilateral infiltrates. Could be pneumonia versus volume overload from renal failure. We'll treat with empiric antibodies and hemodialysis. The chest x-ray in a.m. and if no resolution well We'll repeat chest x-ray in 3-4 weeks (3) Acute on chronic systolic CHF (congestive heart failure) Current Visit: No Status: Acute Plan to address problem: At this particular time patient has no JVD no lymphadenopathy only trace edema. Physical exam is not consistent with acute congestive heart failure at this particular time points more toward renal failure and volume overload. Discussed on the side with instructional technology teacher patient had a recent negative cardiac catheterization. We'll continue daily weights. I believe that the volume overload will improve her breathing status. (4) ESRD (end stage renal disease) Current Visit: No Status: Acute (5) Pneumonia Current Visit: Yes Status: Acute Qualifiers: Pneumonia type: P Aspiration pneumonia type: A Laterality: L Lung location: L Plan to address problem: Patient possibly with pneumonia with infiltrates. We'll treat empirically with Rocephin for now. After she's diuresis can obtain another chest x-ray and see whether or not the infiltrates have resolved. (6) Hyperkalemia-likely secondary to renal disease will recheck in the a.m. 7. Debility-patient ambulates with a walker. We will progress PT OT eval and treat. 8 DVT and GI prophylaxis. History Interval history: Patient seen and examined this morning in no acute distress, but lethargic Denies any chest pain, nausea, vomiting, diarrhea No fever noted blood pressure controlled No adverse events reported to me by nursing staff Hospitalist Physical - Physical exam Narrative exam: VITAL SIGNS: Reviewed. GENERAL: The patient appeared well nourished and normally developed but otherwise lethargic. Vital signs as documented. HEAD: No signs of head trauma. EYES: Pupils are equal. Extraocular motions intact. EARS: Hearing grossly intact. MOUTH: Oropharynx is normal. NECK: No adenopathy, no JVD. CHEST: Chest with diminished breath sounds bilaterally. No wheezes, rales, or rhonchi. CARDIAC: Regular rate and rhythm. S1 and S2, without murmurs, gallops, or rubs. VASCULAR: No Edema. Peripheral pulses normal and equal in all extremities. ABDOMEN: Soft, without detectable tenderness. No sign of distention. No rebound or guarding, and no masses palpated. Bowel Sounds normal. MUSCULOSKELETAL: Extremities without clubbing, cyanosis or edema. NEUROLOGIC EXAM: Alert and oriented x 3. Lethargic. No focal sensory or strength deficits. Speech normal. Follows commands. PSYCHIATRIC: Mood normal. SKIN: Age appropriate wrinkles and blemishes - Constitutional Vitals: Temp Pulse Resp BP Pulse Ox 98.4 F 73 18 130/78 96 12/20/16 08:00 12/20/16 13:49 12/20/16 13:49 12/20/16 08:00 12/20/16 08:00 General appearance: Present: mild distress Results - Labs CBC & Chem 7: 12/20/16 06:29 12/20/16 06:29 Labs: Laboratory Last Values WBC 7.2 K/mm3 (4.5-11.0) 12/20/16 06:29 RBC 3.67 M/mm3 (3.65-5.03) 12/20/16 06:29 Hgb 10.2 gm/dl (10.1-14.3) 12/20/16 06:29 Hct 33.5 % (30.3-42.9) 12/20/16 06:29 MCV 91 fl (79-97) 12/20/16 06:29 MCH 28 pg (28-32) 12/20/16 06:29 MCHC 31 % (30-34) 12/20/16 06:29 RDW 21.3 % (13.2-15.2) H 12/20/16 06:29 Plt Count 148 K/mm3 (140-440) 12/20/16 06:29 Lymph % (Auto) 9.3 % (13.4-35.0) L 12/19/16 05:47 [place] % (Auto) Chemical Unit Operator 12/20/16 06:29 Eos % (Auto) 1.2 % (0.0-4.3) 12/19/16 05:47 Baso % (Auto) 0.5 % (0.0-1.8) 12/19/16 05:47 Lymph # 0.6 K/mm3 (1.2-5.4) L 12/19/16 05:47 [place] # 1.0 K/mm3 (0.0-0.8) H 12/19/16 05:47 Eos # 0.1 K/mm3 (0.0-0.4) 12/19/16 05:47 Baso # 0.0 K/mm3 (0.0-0.1) 12/19/16 05:47 Add Manual Diff Complete 12/20/16 06:29 Total Counted 100 12/20/16 06:29 Seg Neutrophils % 73.8 % (40.0-70.0) H 12/19/16 05:47 Seg Neuts % (Manual) 81.0 % (40.0-70.0) H 12/20/16 06:29 Band Neutrophils % 1.0 % 12/20/16 06:29 Lymphocytes % (Manual) 8.0 % (13.4-35.0) L 12/20/16 06:29 Reactive Lymphs % (Man) 0 % 12/20/16 06:29 Monocytes % (Manual) 10.0 % (0.0-7.3) H 12/20/16 06:29 Eosinophils % (Manual) 0 % (0.0-4.3) 12/20/16 06:29 Basophils % (Manual) 0 % (0.0-1.8) 12/20/16 06:29 Metamyelocytes % 0 % 12/20/16 06:29 Myelocytes % 0 % 12/20/16 06:29 Promyelocytes % 0 % 12/20/16 06:29 Blast Cells % 0 % 12/20/16 06:29 Nucleated RBC % Not Reportable 12/20/16 06:29 Seg Neutrophils # 5.0 K/mm3 (1.8-7.7) 12/19/16 05:47 Seg Neutrophils # Man 5.8 K/mm3 (1.8-7.7) 12/20/16 06:29 Band Neutrophils # 0.1 K/mm3 12/20/16 06:29 Lymphocytes # (Manual) 0.6 K/mm3 (1.2-5.4) L 12/20/16 06:29 Abs React Lymphs (Man) 0.0 K/mm3 12/20/16 06:29 Monocytes # (Manual) 0.7 K/mm3 (0.0-0.8) 12/20/16 06:29 Eosinophils # (Manual) 0.0 K/mm3 (0.0-0.4) 12/20/16 06:29 Basophils # (Manual) 0.0 K/mm3 (0.0-0.1) 12/20/16 06:29 Metamyelocytes # 0.0 K/mm3 12/20/16 06:29 Myelocytes # 0.0 K/mm3 12/20/16 06:29 Promyelocytes # 0.0 K/mm3 12/20/16 06:29 Blast Cells # 0.0 K/mm3 12/20/16 06:29 WBC Morphology Not Reportable 12/20/16 06:29 Hypersegmented Neuts Not Reportable 12/20/16 06:29 Hyposegmented Neuts Not Reportable 12/20/16 06:29 Hypogranular Neuts Not Reportable 12/20/16 06:29 Smudge Cells Not Reportable 12/20/16 06:29 Toxic Granulation Not Reportable 12/20/16 06:29 Toxic Vacuolation Not Reportable 12/20/16 06:29 Dohle Bodies Not Reportable 12/20/16 06:29 Pelger-Huet Anomaly Not Reportable 12/20/16 06:29 Reilly Rods Not Reportable 12/20/16 06:29 Platelet Estimate Appears decreased 12/20/16 06:29 Clumped Platelets Not Reportable 12/20/16 06:29 Plt Clumps, EDTA Not Reportable 12/20/16 06:29 Large Platelets Not Reportable 12/20/16 06:29 Giant Platelets Not Reportable 12/20/16 06:29 Platelet Satelliting Not Reportable 12/20/16 06:29 Plt Morphology Comment Not Reportable 12/20/16 06:29 RBC Morphology Not Reportable 12/20/16 06:29 Dimorphic RBCs Not Reportable 12/20/16 06:29 Polychromasia Not Reportable 12/20/16 06:29 Hypochromasia Not Reportable 12/20/16 06:29 Poikilocytosis Few 12/20/16 06:29 Anisocytosis 1+ 12/20/16 06:29 Microcytosis Not Reportable 12/20/16 06:29 Macrocytosis Not Reportable 12/20/16 06:29 Spherocytes Not Reportable 12/20/16 06:29 Pappenheimer Bodies Not Reportable 12/20/16 06:29 Sickle Cells Not Reportable 12/20/16 06:29 Target Cells Few 12/20/16 06:29 Tear Drop Cells Not Reportable 12/20/16 06:29 Ovalocytes Few 12/20/16 06:29 Helmet Cells Not Reportable 12/20/16 06:29 [place] Bodies Not Reportable 12/20/16 06:29 [place] Rings Not Reportable 12/20/16 06:29 Jayme Cells Not Reportable 12/20/16 06:29 Bite Cells Not Reportable 12/20/16 06:29 Crenated Cell Not Reportable 12/20/16 06:29 Elliptocytes Not Reportable 12/20/16 06:29 Acanthocytes (Spur) Not Reportable 12/20/16 06:29 Rouleaux Not Reportable 12/20/16 06:29 Hemoglobin C Crystals Not Reportable 12/20/16 06:29 Schistocytes Not Reportable 12/20/16 06:29 Malaria parasites Not Reportable 12/20/16 06:29 Elia Bodies Not Reportable 12/20/16 06:29 Hem Pathologist Commnt No 12/20/16 06:29 POC ABG pH 7.395 (7.35-7.45) 12/19/16 06:28 POC ABG pCO2 52.1 (35-45) H 12/19/16 06:28 POC ABG pO2 53 (80-105) L 12/19/16 06:28 POC ABG HCO3 31.9 12/19/16 06:28 POC ABG Total CO2 33 12/19/16 06:28 POC ABG O2 Sat 86 12/19/16 06:28 POC ABG Base Excess 7 12/19/16 06:28 FiO2 32 % 12/19/16 06:28 Sodium 139 mmol/L (137-145) 12/20/16 06:29 Potassium 5.2 mmol/L (3.6-5.0) H 12/20/16 06:29 Chloride 94.8 mmol/L (98-107) L 12/20/16 06:29 Carbon Dioxide 31 mmol/L (22-30) H 12/20/16 06:29 Anion Gap 18 mmol/L 12/20/16 06:29 BUN 28 mg/dL (7-17) H 12/20/16 06:29 Creatinine 6.5 mg/dL (0.7-1.2) H 12/20/16 06:29 Estimated GFR 7 ml/min 12/20/16 06:29 BUN/Creatinine Ratio 4.30 % 12/20/16 06:29 Glucose 84 mg/dL (65-100) 12/20/16 06:29 POC Glucose 126 (70-105) H 12/20/16 11:55 Calcium 8.2 mg/dL (8.4-10.2) L 12/20/16 06:29 Total Bilirubin 0.6 mg/dL (0.1-1.2) 12/20/16 06:29 AST 14 units/L (5-40) 12/20/16 06:29 ALT 12 units/L (7-56) 12/20/16 06:29 Alkaline Phosphatase 198 units/L (35-129) H 12/20/16 06:29 Troponin T 0.037 ng/mL (0.00-0.029) H 12/19/16 05:47 Total Protein 7.2 g/dL (6.3-8.2) 12/20/16 06:29 Albumin 3.2 g/dL (3.9-5) L 12/20/16 06:29 Albumin/Globulin Ratio 0.8 % 12/20/16 06:29 Triglycerides 41 mg/dL (2-149) 12/19/16 05:47 Cholesterol 144 mg/dL (50-199) 12/19/16 05:47 LDL Cholesterol Direct 56 mg/dL (50-130) 12/19/16 05:47 HDL Cholesterol 80 mg/dL (40-59) H 12/19/16 05:47 Cholesterol/HDL Ratio 1.80 % 12/19/16 05:47 - Imaging and Cardiology Chest x-ray: image reviewed (pneumonitis )
[2016-12-21 08:07] LABS: Hematocrit 32.8 % (30.3-42.9); Hemoglobin 9.9 gm/dl (10.1-14.3); Mean Corpuscular HGB Conc 30 % (30-34); Mean Corpuscular Hemoglobin 28 pg (28-32); Mean Corpuscular Volume 92 fl (79-97); Platelet Count 144 K/mm3 (140-440); Red Blood Count 3.57 M/mm3 (3.65-5.03); White Blood Count 5.5 K/mm3 (4.5-11.0)
[2016-12-21] MEDS: DUONEB 0.5 MG-3 MG/3 ML SOLN IH SCH ×3 (08:11→21:45)
[2016-12-21 08:12] LABS: Red Cell Distribution Width 20.2 % (13.2-15.2)
[2016-12-21 08:26] LABS: BUN/Creatinine Ratio 5.64; Calcium 7.6 mg/dL (8.4-10.2); Chloride 92.9 mmol/L (98-107); Potassium 4.9 mmol/L (3.6-5.0)
[2016-12-21] MEDS: RENVELA PO SCH ×2 (08:33→13:22)
--- NOTE | 2016-12-21 09:33 | XRay Report ---
Single view chest: Compared to 12/19/16. History: Pneumonia. Findings: Cardiomegaly. Trachea is midline. Pulmonary venous congestion with bibasilar lower lobe infiltrates. Probable bilateral minimal pleural effusion. Impression: Probable CHF. Less likely bilateral lower lobe pneumonia.
[2016-12-21] MEDS: SENSIPAR PO SCH (10:04)
[2016-12-21] MEDS: NORVASC PO SCH (10:05)
[2016-12-21] MEDS: LOVENOX SUB-Q SCH (10:05)
[2016-12-21] MEDS: NEURONTIN PO SCH (10:05)
[2016-12-21] MEDS: ZYLOPRIM PO SCH (10:05)
[2016-12-21] MEDS: ZITHROMAX 500 MG in NACL 0.9% 250ML 250 ML IV SCH (10:05)
[2016-12-21] MEDS: PROTONIX PO SCH (10:05)
--- NOTE | 2016-12-21 13:47 | Progress Note ---
Assessment and Plan Assessment and plan: Patient is a pleasant 81-year-old female presents to the emergency department via EMS for evaluation of shortness of breath. Patient unable to give any history at this time because of language barrier she is from [facility] and speaks- Kazakh. Information obtained from patient's current chart. Upon awakening this morning at approximately 4 AM, the patient was having difficulty breathing. There was no chest pain. There has been no cough. There are no other complaints. Patient is currently finishing up dialysis. She appears comfortable now. Chest x-ray noted to show some pulmonary infiltrates. She did not miss any dialysis. Today her son was at the bedsidewith the patient was just severely weak prompted them to bring her to the hospital as she could not get up by herself. 1) ESRD needing dialysis Current Visit: Yes Status: Acute Plan to address problem: End-stage renal disease patient undergoes dialysis Friday. Nephrology input noted. (2) Volume overload Current Visit: Yes Status: Acute Qualifiers: Hypervolemia type: other Qualified Code(s): E87.79 - Other fluid overload Plan to address problem: Volume overload most likely secondary to limited hemodialysis versus a pneumonia. Patient was chest x-ray consistent with bilateral infiltrates. Could be pneumonia versus volume overload from renal failure. We'll treat with empiric antibodies and hemodialysis. The chest x-ray in a.m. and if no resolution well We'll repeat chest x-ray in 3-4 weeks (3) Acute on chronic systolic CHF (congestive heart failure) Current Visit: No Status: Acute Plan to address problem: We'll discontinue Norvasc and start patient on beta elizabeth. At this particular time patient has no JVD no lymphadenopathy only trace edema. Physical exam is not consistent with acute congestive heart failure at this particular time points more toward renal failure and volume overload. Discussed on the side with novelty worker patient had a recent negative cardiac catheterization. We'll continue daily weights. I believe that the volume overload will improve her breathing status. (4) ESRD (end stage renal disease) Current Visit: No Status: Acute (5) Pneumonia Current Visit: Yes Status: Acute Qualifiers: Pneumonia type: P Aspiration pneumonia type: A Laterality: L Lung location: L Plan to address problem: We'll discontinue antibiotics as repeat chest x-ray was unrevealing of pneumonia. It appears this was likely infiltrates from fluid overload. (6) Hyperkalemia-likely secondary to renal disease will recheck in the a.m. 7. Debility-patient ambulates with a walker. Current to family patient was severely weak and could not get up. In spite of proton to the hospital. She will need some physical therapy either alcohol or other skilled medicine facility. We will progress PT OT eval and treat. 8 DVT and GI prophylaxis. History Interval history: Patient seen and examined this morning in no acute distress, much more active today than yesterday. Her son At the Bedside Denies any chest pain, nausea, vomiting, diarrhea No fever noted blood pressure controlled No adverse events reported to me by nursing staff Hospitalist Physical - Physical exam Narrative exam: VITAL SIGNS: Reviewed. GENERAL: The patient appeared well nourished and normally developed Vital signs as documented. HEAD: No signs of head trauma. EYES: Pupils are equal. Extraocular motions intact. EARS: Hearing grossly intact. MOUTH: Oropharynx is normal. NECK: No adenopathy, no JVD. CHEST: Chest with diminished breath sounds bilaterally. No wheezes, rales, or rhonchi. CARDIAC: Regular rate and rhythm. S1 and S2, without murmurs, gallops, or rubs. VASCULAR: No Edema. Peripheral pulses normal and equal in all extremities. ABDOMEN: Soft, without detectable tenderness. No sign of distention. No rebound or guarding, and no masses palpated. Bowel Sounds normal. MUSCULOSKELETAL: Extremities without clubbing, cyanosis or edema. NEUROLOGIC EXAM: Alert and oriented x 3. No focal sensory or strength deficits. Speech normal. Follows commands. PSYCHIATRIC: Mood normal. SKIN: Age appropriate wrinkles and blemishes - Constitutional Vitals: Temp Pulse Resp BP Pulse Ox 97.8 F 75 14 139/63 98 12/21/16 08:10 12/21/16 08:29 12/21/16 08:29 12/21/16 08:10 12/21/16 08:16 General appearance: Present: mild distress Results - Labs CBC & Chem 7: 12/21/16 07:44 12/21/16 07:44 Labs: Laboratory Last Values WBC 5.5 K/mm3 (4.5-11.0) 12/21/16 07:44 RBC 3.57 M/mm3 (3.65-5.03) L 12/21/16 07:44 Hgb 9.9 gm/dl (10.1-14.3) L 12/21/16 07:44 Hct 32.8 % (30.3-42.9) 12/21/16 07:44 MCV 92 fl (79-97) 12/21/16 07:44 MCH 28 pg (28-32) 12/21/16 07:44 MCHC 30 % (30-34) 12/21/16 07:44 RDW 20.2 % (13.2-15.2) H 12/21/16 07:44 Plt Count 144 K/mm3 (140-440) 12/21/16 07:44 Lymph % (Auto) 9.3 % (13.4-35.0) L 12/19/16 05:47 [place] % (Auto) Mysql Dba 12/20/16 06:29 Eos % (Auto) 1.2 % (0.0-4.3) 12/19/16 05:47 Baso % (Auto) 0.5 % (0.0-1.8) 12/19/16 05:47 Lymph # 0.6 K/mm3 (1.2-5.4) L 12/19/16 05:47 [place] # 1.0 K/mm3 (0.0-0.8) H 12/19/16 05:47 Eos # 0.1 K/mm3 (0.0-0.4) 12/19/16 05:47 Baso # 0.0 K/mm3 (0.0-0.1) 12/19/16 05:47 Add Manual Diff Complete 12/20/16 06:29 Total Counted 100 12/20/16 06:29 Seg Neutrophils % 73.8 % (40.0-70.0) H 12/19/16 05:47 Seg Neuts % (Manual) 81.0 % (40.0-70.0) H 12/20/16 06:29 Band Neutrophils % 1.0 % 12/20/16 06:29 Lymphocytes % (Manual) 8.0 % (13.4-35.0) L 12/20/16 06:29 Reactive Lymphs % (Man) 0 % 12/20/16 06:29 Monocytes % (Manual) 10.0 % (0.0-7.3) H 12/20/16 06:29 Eosinophils % (Manual) 0 % (0.0-4.3) 12/20/16 06:29 Basophils % (Manual) 0 % (0.0-1.8) 12/20/16 06:29 Metamyelocytes % 0 % 12/20/16 06:29 Myelocytes % 0 % 12/20/16 06:29 Promyelocytes % 0 % 12/20/16 06:29 Blast Cells % 0 % 12/20/16 06:29 Nucleated RBC % Not Reportable 12/20/16 06:29 Seg Neutrophils # 5.0 K/mm3 (1.8-7.7) 12/19/16 05:47 Seg Neutrophils # Man 5.8 K/mm3 (1.8-7.7) 12/20/16 06:29 Band Neutrophils # 0.1 K/mm3 12/20/16 06:29 Lymphocytes # (Manual) 0.6 K/mm3 (1.2-5.4) L 12/20/16 06:29 Abs React Lymphs (Man) 0.0 K/mm3 12/20/16 06:29 Monocytes # (Manual) 0.7 K/mm3 (0.0-0.8) 12/20/16 06:29 Eosinophils # (Manual) 0.0 K/mm3 (0.0-0.4) 12/20/16 06:29 Basophils # (Manual) 0.0 K/mm3 (0.0-0.1) 12/20/16 06:29 Metamyelocytes # 0.0 K/mm3 12/20/16 06:29 Myelocytes # 0.0 K/mm3 12/20/16 06:29 Promyelocytes # 0.0 K/mm3 12/20/16 06:29 Blast Cells # 0.0 K/mm3 12/20/16 06:29 WBC Morphology Not Reportable 12/20/16 06:29 Hypersegmented Neuts Not Reportable 12/20/16 06:29 Hyposegmented Neuts Not Reportable 12/20/16 06:29 Hypogranular Neuts Not Reportable 12/20/16 06:29 Smudge Cells Not Reportable 12/20/16 06:29 Toxic Granulation Not Reportable 12/20/16 06:29 Toxic Vacuolation Not Reportable 12/20/16 06:29 Dohle Bodies Not Reportable 12/20/16 06:29 Pelger-Huet Anomaly Not Reportable 12/20/16 06:29 Reilly Rods Not Reportable 12/20/16 06:29 Platelet Estimate Appears decreased 12/20/16 06:29 Clumped Platelets Not Reportable 12/20/16 06:29 Plt Clumps, EDTA Not Reportable 12/20/16 06:29 Large Platelets Not Reportable 12/20/16 06:29 Giant Platelets Not Reportable 12/20/16 06:29 Platelet Satelliting Not Reportable 12/20/16 06:29 Plt Morphology Comment Not Reportable 12/20/16 06:29 RBC Morphology Not Reportable 12/20/16 06:29 Dimorphic RBCs Not Reportable 12/20/16 06:29 Polychromasia Not Reportable 12/20/16 06:29 Hypochromasia Not Reportable 12/20/16 06:29 Poikilocytosis Few 12/20/16 06:29 Anisocytosis 1+ 12/20/16 06:29 Microcytosis Not Reportable 12/20/16 06:29 Macrocytosis Not Reportable 12/20/16 06:29 Spherocytes Not Reportable 12/20/16 06:29 Pappenheimer Bodies Not Reportable 12/20/16 06:29 Sickle Cells Not Reportable 12/20/16 06:29 Target Cells Few 12/20/16 06:29 Tear Drop Cells Not Reportable 12/20/16 06:29 Ovalocytes Few 12/20/16 06:29 Helmet Cells Not Reportable 12/20/16 06:29 [place] Bodies Not Reportable 12/20/16 06:29 [place] Rings Not Reportable 12/20/16 06:29 [place] Cells Not Reportable 12/20/16 06:29 Bite Cells Not Reportable 12/20/16 06:29 Crenated Cell Not Reportable 12/20/16 06:29 Elliptocytes Not Reportable 12/20/16 06:29 Acanthocytes (Spur) Not Reportable 12/20/16 06:29 Rouleaux Not Reportable 12/20/16 06:29 Hemoglobin C Crystals Not Reportable 12/20/16 06:29 Schistocytes Not Reportable 12/20/16 06:29 Malaria parasites Not Reportable 12/20/16 06:29 Elia Bodies Not Reportable 12/20/16 06:29 Hem Pathologist Commnt No 12/20/16 06:29 POC ABG pH 7.395 (7.35-7.45) 12/19/16 06:28 POC ABG pCO2 52.1 (35-45) H 12/19/16 06:28 POC ABG pO2 53 (80-105) L 12/19/16 06:28 POC ABG HCO3 31.9 12/19/16 06:28 POC ABG Total CO2 33 12/19/16 06:28 POC ABG O2 Sat 86 12/19/16 06:28 POC ABG Base Excess 7 12/19/16 06:28 FiO2 32 % 12/19/16 06:28 Sodium 135 mmol/L (137-145) L 12/21/16 07:44 Potassium 4.9 mmol/L (3.6-5.0) 12/21/16 07:44 Chloride 92.9 mmol/L (98-107) L 12/21/16 07:44 Carbon Dioxide 28 mmol/L (22-30) 12/21/16 07:44 Anion Gap 19 mmol/L 12/21/16 07:44 BUN 48 mg/dL (7-17) H 12/21/16 07:44 Creatinine 8.5 mg/dL (0.7-1.2) H 12/21/16 07:44 Estimated GFR 5 ml/min 12/21/16 07:44 BUN/Creatinine Ratio 5.64 % 12/21/16 07:44 Glucose 75 mg/dL (65-100) 12/21/16 07:44 POC Glucose 93 (70-105) 12/20/16 17:13 Calcium 7.6 mg/dL (8.4-10.2) L 12/21/16 07:44 Total Bilirubin 0.6 mg/dL (0.1-1.2) 12/20/16 06:29 AST 14 units/L (5-40) 12/20/16 06:29 ALT 12 units/L (7-56) 12/20/16 06:29 Alkaline Phosphatase 198 units/L (35-129) H 12/20/16 06:29 Troponin T 0.037 ng/mL (0.00-0.029) H 12/19/16 05:47 Total Protein 7.2 g/dL (6.3-8.2) 12/20/16 06:29 Albumin 3.2 g/dL (3.9-5) L 12/20/16 06:29 Albumin/Globulin Ratio 0.8 % 12/20/16 06:29 Triglycerides 41 mg/dL (2-149) 12/19/16 05:47 Cholesterol 144 mg/dL (50-199) 12/19/16 05:47 LDL Cholesterol Direct 56 mg/dL (50-130) 12/19/16 05:47 HDL Cholesterol 80 mg/dL (40-59) H 12/19/16 05:47 Cholesterol/HDL Ratio 1.80 % 12/19/16 05:47
[2016-12-21] MEDS ORDERED: NACL 0.9% 100 ML IV PRN (14:24)
[2016-12-21] MEDS ORDERED: NACL 0.9 (PRIMING MACHINE ONLY DIALYSIS) MC ONE (17:51)
[2016-12-21] MEDS: COREG PO SCH ×2 (23:25→23:26)
[2016-12-22 06:01] LABS: Hematocrit 33.5 % (30.3-42.9); Hemoglobin 10.4 gm/dl (10.1-14.3); Mean Corpuscular HGB Conc 31 % (30-34); Mean Corpuscular Hemoglobin 28 pg (28-32); Platelet Count 143 K/mm3 (140-440); Red Blood Count 3.75 M/mm3 (3.65-5.03); Red Cell Distribution Width 19.9 % (13.2-15.2); White Blood Count 4.2 K/mm3 (4.5-11.0)
[2016-12-22 06:02] LABS: Mean Corpuscular Volume 90 fl (79-97)
[2016-12-22 06:20] LABS: BUN/Creatinine Ratio 5.45; Calcium 7.7 mg/dL (8.4-10.2)
[2016-12-22 06:21] LABS: Chloride 94.5 mmol/L (98-107)
[2016-12-22 06:54] LABS: Potassium 4.7 mmol/L (3.6-5.0)
[2016-12-22] MEDS: DUONEB 0.5 MG-3 MG/3 ML SOLN IH SCH ×3 (07:40→19:58)
--- NOTE | 2016-12-22 09:12 | Discharge Summary ---
Providers - Providers Date of Admission: 12/19/16 06:49 Date of discharge: 12/23/16 Attending physician: CINDY MONTGOMERY MD 12/19/16 17:07 Physical Therapy Evaluation and Treat [CONS] Routine Comment: Reason For Exam: weakness Primary care physician: GRILL ASSOCIATE Hospitalization Reason for admission: generalized weakness which shortness of breath Condition: Stable Hospital course: Patient is a pleasant 81-year-old female presents to the emergency department via EMS for evaluation of shortness of breath. Patient unable to give any history at this time because of language barrier she is from [facility] and speaks- Urdu. Information obtained from patient's current chart and from the sun. Patient was recently discharged from the hospital for a cardiac catheterization was unremarkable. Following dialysis records noted that this was more fluid overload rather than pneumonia antibiotics was discontinued the patient continued to improve. Records were reviewed ejection fraction showed EF of 55- 60% dose. The patient has chronic diastolic dysfunction and systolic. Patient was started on beta elizabeth to control heart rate which has improved. We did offer retirement facility placement for the patient as she appears deconditioned but the family refused and would rather take the patient home with home health. She is clinically stable at this point for discharge. A VQ scan was done and was negative for pulmonary embolism. I did discuss with the son the patient will need a recheck x-ray in 3-4 weeks. Discharge diagnosis 1) ESRD needing dialysis (2) Volume overload (3) Acute on chronic diastolic CHF (congestive heart failure) (4) Hyperkalemia (5) Debility- Disposition: DISCHARGED TO HOME OR SELFCARE Time spent for discharge: 35 mins Core Measure Documentation - Palliative Care Palliative Care/ Comfort Measures: Not Applicable - Core Measures Any of the following diagnoses?: heart failure - VTE Discharge Requirements Deep Vein Thrombosis/Pulmonary Embolism Present on Admission: No - Heart Failure Discharge Requirements EDI/ARB for LVSD if EF <40%: Not Applicable Beta elizabeht at discharge: Yes Exam - Physical Exam Narrative exam: VITAL SIGNS: Reviewed. GENERAL: The patient appeared well nourished and normally developed Vital signs as documented. HEAD: No signs of head trauma. EYES: Pupils are equal. Extraocular motions intact. EARS: Hearing grossly intact. MOUTH: Oropharynx is normal. NECK: No adenopathy, no JVD. CHEST: Chest with diminished breath sounds bilaterally. No wheezes, rales, or rhonchi. CARDIAC: Regular rate and rhythm. S1 and S2, without murmurs, gallops, or rubs. VASCULAR: No Edema. Peripheral pulses normal and equal in all extremities. ABDOMEN: Soft, without detectable tenderness. No sign of distention. No rebound or guarding, and no masses palpated. Bowel Sounds normal. MUSCULOSKELETAL: Extremities without clubbing, cyanosis or edema. NEUROLOGIC EXAM: Alert and oriented x 3. No focal sensory or strength deficits. Speech normal. Follows commands. PSYCHIATRIC: Mood normal. SKIN: Age appropriate wrinkles and blemishes - Constitutional Vitals: Temp Pulse Resp BP Pulse Ox 98.2 F 141 H 18 93/51 97 12/22/16 00:15 12/22/16 00:15 12/22/16 00:15 12/22/16 00:15 12/22/16 00:15 Plan Activity: advance as tolerated, fall precautions Diet: renal Special Instructions: physical therapy, occupational therapy Durable Medical Equipment Needed Upon Discharge: Oxygen (2lpm nc ) Additional Instructions: Repeat x-ray 3-4 weeks already discussed with son Follow up with: PRIMARY CARE, [Primary Care Provider] - 3-5 Days CHARLES RAMIREZ MD [Staff Physician] - 7 Days MEME MOJICA MD [Staff Physician] - 7 Days Prescriptions: Azithromycin [Zithromax TAB] 250 mg PO QDAY #10 tablet Carvedilol [Coreg] 3.125 mg PO BID #60 tablet Ipratropium/Albuterol Sulfate [Duoneb 0.5 mg-3 mg/3 ml Soln] 1 ampul IH TIDRT # 30 ampul.neb
[2016-12-22] MEDS: RENVELA PO SCH ×5 (09:44→17:55)
[2016-12-22] MEDS: COREG PO SCH ×3 (11:03→22:47)
[2016-12-22] MEDS: NEURONTIN PO SCH (11:06)
[2016-12-22] MEDS: LOVENOX SUB-Q SCH (11:06)
[2016-12-22] MEDS: PROTONIX PO SCH (11:06)
[2016-12-22] MEDS: SENSIPAR PO SCH (11:06)
[2016-12-22] MEDS: ZYLOPRIM PO SCH (11:07)
[2016-12-22] MEDS ORDERED: LEVAQUIN 750MG/150ML 750 MG/150 ML BAG IV SCH (13:00)
[2016-12-22] MEDS: ZITHROMAX 500 MG in NACL 0.9% 250ML 250 ML IV SCH (14:27)
--- NOTE | 2016-12-22 15:02 | Progress Note ---
Assessment and Plan Assessment and plan: Patient is a pleasant 81-year-old female presents to the emergency department via EMS for evaluation of shortness of breath. Patient unable to give any history at this time because of language barrier she is from [facility] and speaks- Kiswahili. Information obtained from patient's current chart. Upon awakening this morning at approximately 4 AM, the patient was having difficulty breathing. There was no chest pain. There has been no cough. There are no other complaints. Patient is currently finishing up dialysis. She appears comfortable now. Chest x-ray noted to show some pulmonary infiltrates. She did not miss any dialysis. er son was at the bedside with the patient was just severely weak prompted them to bring her to the hospital as she could not get up by herself. 1) ESRD needing dialysis End-stage renal disease patient undergoes dialysis Friday. Nephrology input noted. (2) Volume overload Volume overload most likely secondary to limited hemodialysis versus a pneumonia. Patient was chest x-ray consistent with bilateral infiltrates. Could be pneumonia versus volume overload from renal failure. We'll treat with empiric antibodies and hemodialysis. The chest x-ray in a.m. and if no resolution well We'll repeat chest x-ray in 3-4 weeks (3) Acute on chronic systolic CHF (congestive heart failure) We'll discontinue Norvasc and start patient on beta elizabeth. At this particular time patient has no JVD no lymphadenopathy only trace edema. Physical exam is not consistent with acute congestive heart failure at this particular time points more toward renal failure and volume overload. 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 We'll continue daily weights. I believe that the volume overload will improve her breathing status. (4) Pneumonia We'll discontinue antibiotics as repeat chest x-ray was unrevealing of pneumonia. It appears this was likely infiltrates from fluid overload. (5) Hyperkalemia-normalized (7) Debility-patient ambulates with a walker. Current to family patient was severely weak and could not get up. In spite of proton to the hospital. She will need some physical therapy either alcohol or other skilled medicine facility. We will progress PT OT eval and treat. (8) DVT and GI prophylaxis. (9) Discharge in am History Interval history: Patient seen and examined this morning in no acute distress, continues to report improvement Denies any chest pain, nausea, vomiting, diarrhea No fever noted blood pressure controlled No adverse events reported to me by nursing staff Hospitalist Physical - Physical exam Narrative exam: VITAL SIGNS: Reviewed. GENERAL: The patient appeared well nourished and normally developed Vital signs as documented. HEAD: No signs of head trauma. EYES: Pupils are equal. Extraocular motions intact. EARS: Hearing grossly intact. MOUTH: Oropharynx is normal. NECK: No adenopathy, no JVD. CHEST: Chest with diminished breath sounds bilaterally. No wheezes, rales, or rhonchi. CARDIAC: Regular rate and rhythm. S1 and S2, without murmurs, gallops, or rubs. VASCULAR: No Edema. Peripheral pulses normal and equal in all extremities. ABDOMEN: Soft, without detectable tenderness. No sign of distention. No rebound or guarding, and no masses palpated. Bowel Sounds normal. MUSCULOSKELETAL: Extremities without clubbing, cyanosis or edema. NEUROLOGIC EXAM: Alert and oriented x 3. No focal sensory or strength deficits. Speech normal. Follows commands. PSYCHIATRIC: Mood normal. SKIN: Age appropriate wrinkles and blemishes - Constitutional Vitals: Temp Pulse Resp BP Pulse Ox 98.4 F 108 H 18 98/61 96 12/22/16 08:10 12/22/16 13:45 12/22/16 13:45 12/22/16 11:03 12/22/16 09:25 General appearance: Present: mild distress Results - Labs CBC & Chem 7: 12/22/16 05:16 12/22/16 05:16 Labs: Laboratory Last Values WBC 4.2 K/mm3 (4.5-11.0) L 12/22/16 05:16 RBC 3.75 M/mm3 (3.65-5.03) 12/22/16 05:16 Hgb 10.4 gm/dl (10.1-14.3) 12/22/16 05:16 Hct 33.5 % (30.3-42.9) 12/22/16 05:16 MCV 90 fl (79-97) 12/22/16 05:16 MCH 28 pg (28-32) 12/22/16 05:16 MCHC 31 % (30-34) 12/22/16 05:16 RDW 19.9 % (13.2-15.2) H 12/22/16 05:16 Plt Count 143 K/mm3 (140-440) 12/22/16 05:16 Lymph % (Auto) 9.3 % (13.4-35.0) L 12/19/16 05:47 [place] % (Auto) Security System Sales Consultant 12/20/16 06:29 Eos % (Auto) 1.2 % (0.0-4.3) 12/19/16 05:47 Baso % (Auto) 0.5 % (0.0-1.8) 12/19/16 05:47 Lymph # 0.6 K/mm3 (1.2-5.4) L 12/19/16 05:47 [place] # 1.0 K/mm3 (0.0-0.8) H 12/19/16 05:47 Eos # 0.1 K/mm3 (0.0-0.4) 12/19/16 05:47 Baso # 0.0 K/mm3 (0.0-0.1) 12/19/16 05:47 Add Manual Diff Complete 12/20/16 06:29 Total Counted 100 12/20/16 06:29 Seg Neutrophils % 73.8 % (40.0-70.0) H 12/19/16 05:47 Seg Neuts % (Manual) 81.0 % (40.0-70.0) H 12/20/16 06:29 Band Neutrophils % 1.0 % 12/20/16 06:29 Lymphocytes % (Manual) 8.0 % (13.4-35.0) L 12/20/16 06:29 Reactive Lymphs % (Man) 0 % 12/20/16 06:29 Monocytes % (Manual) 10.0 % (0.0-7.3) H 12/20/16 06:29 Eosinophils % (Manual) 0 % (0.0-4.3) 12/20/16 06:29 Basophils % (Manual) 0 % (0.0-1.8) 12/20/16 06:29 Metamyelocytes % 0 % 12/20/16 06:29 Myelocytes % 0 % 12/20/16 06:29 Promyelocytes % 0 % 12/20/16 06:29 Blast Cells % 0 % 12/20/16 06:29 Nucleated RBC % Not Reportable 12/20/16 06:29 Seg Neutrophils # 5.0 K/mm3 (1.8-7.7) 12/19/16 05:47 Seg Neutrophils # Man 5.8 K/mm3 (1.8-7.7) 12/20/16 06:29 Band Neutrophils # 0.1 K/mm3 12/20/16 06:29 Lymphocytes # (Manual) 0.6 K/mm3 (1.2-5.4) L 12/20/16 06:29 Abs React Lymphs (Man) 0.0 K/mm3 12/20/16 06:29 Monocytes # (Manual) 0.7 K/mm3 (0.0-0.8) 12/20/16 06:29 Eosinophils # (Manual) 0.0 K/mm3 (0.0-0.4) 12/20/16 06:29 Basophils # (Manual) 0.0 K/mm3 (0.0-0.1) 12/20/16 06:29 Metamyelocytes # 0.0 K/mm3 12/20/16 06:29 Myelocytes # 0.0 K/mm3 12/20/16 06:29 Promyelocytes # 0.0 K/mm3 12/20/16 06:29 Blast Cells # 0.0 K/mm3 12/20/16 06:29 WBC Morphology Not Reportable 12/20/16 06:29 Hypersegmented Neuts Not Reportable 12/20/16 06:29 Hyposegmented Neuts Not Reportable 12/20/16 06:29 Hypogranular Neuts Not Reportable 12/20/16 06:29 Smudge Cells Not Reportable 12/20/16 06:29 Toxic Granulation Not Reportable 12/20/16 06:29 Toxic Vacuolation Not Reportable 12/20/16 06:29 Dohle Bodies Not Reportable 12/20/16 06:29 Pelger-Huet Anomaly Not Reportable 12/20/16 06:29 Reilly Rods Not Reportable 12/20/16 06:29 Platelet Estimate Appears decreased 12/20/16 06:29 Clumped Platelets Not Reportable 12/20/16 06:29 Plt Clumps, EDTA Not Reportable 12/20/16 06:29 Large Platelets Not Reportable 12/20/16 06:29 Giant Platelets Not Reportable 12/20/16 06:29 Platelet Satelliting Not Reportable 12/20/16 06:29 Plt Morphology Comment Not Reportable 12/20/16 06:29 RBC Morphology Not Reportable 12/20/16 06:29 Dimorphic RBCs Not Reportable 12/20/16 06:29 Polychromasia Not Reportable 12/20/16 06:29 Hypochromasia Not Reportable 12/20/16 06:29 Poikilocytosis Few 12/20/16 06:29 Anisocytosis 1+ 12/20/16 06:29 Microcytosis Not Reportable 12/20/16 06:29 Macrocytosis Not Reportable 12/20/16 06:29 Spherocytes Not Reportable 12/20/16 06:29 Pappenheimer Bodies Not Reportable 12/20/16 06:29 Sickle Cells Not Reportable 12/20/16 06:29 Target Cells Few 12/20/16 06:29 Tear Drop Cells Not Reportable 12/20/16 06:29 Ovalocytes Few 12/20/16 06:29 Helmet Cells Not Reportable 12/20/16 06:29 [place] Bodies Not Reportable 12/20/16 06:29 [place] Rings Not Reportable 12/20/16 06:29 [place] Cells Not Reportable 12/20/16 06:29 Bite Cells Not Reportable 12/20/16 06:29 Crenated Cell Not Reportable 12/20/16 06:29 Elliptocytes Not Reportable 12/20/16 06:29 Acanthocytes (Spur) Not Reportable 12/20/16 06:29 Rouleaux Not Reportable 12/20/16 06:29 Hemoglobin C Crystals Not Reportable 12/20/16 06:29 Schistocytes Not Reportable 12/20/16 06:29 Malaria parasites Not Reportable 12/20/16 06:29 Elia Bodies Not Reportable 12/20/16 06:29 Hem Pathologist Commnt No 12/20/16 06:29 POC ABG pH 7.395 (7.35-7.45) 12/19/16 06:28 POC ABG pCO2 52.1 (35-45) H 12/19/16 06:28 POC ABG pO2 53 (80-105) L 12/19/16 06:28 POC ABG HCO3 31.9 12/19/16 06:28 POC ABG Total CO2 33 12/19/16 06:28 POC ABG O2 Sat 86 12/19/16 06:28 POC ABG Base Excess 7 12/19/16 06:28 FiO2 32 % 12/19/16 06:28 Sodium 135 mmol/L (137-145) L 12/22/16 05:16 Potassium 4.7 mmol/L (3.6-5.0) 12/22/16 05:16 Chloride 94.5 mmol/L (98-107) L 12/22/16 05:16 Carbon Dioxide 24 mmol/L (22-30) 12/22/16 05:16 Anion Gap 21 mmol/L 12/22/16 05:16 BUN 30 mg/dL (7-17) H 12/22/16 05:16 Creatinine 5.5 mg/dL (0.7-1.2) H 12/22/16 05:16 Estimated GFR 9 ml/min 12/22/16 05:16 BUN/Creatinine Ratio 5.45 % 12/22/16 05:16 Glucose 136 mg/dL (65-100) H 12/22/16 05:16 POC Glucose 93 (70-105) 12/20/16 17:13 Lactic Acid 1.1 mmol/L (0.7-2.0) 12/22/16 12:46 Calcium 7.7 mg/dL (8.4-10.2) L 12/22/16 05:16 Total Bilirubin 0.6 mg/dL (0.1-1.2) 12/20/16 06:29 AST 14 units/L (5-40) 12/20/16 06:29 ALT 12 units/L (7-56) 12/20/16 06:29 Alkaline Phosphatase 198 units/L (35-129) H 12/20/16 06:29 Troponin T 0.037 ng/mL (0.00-0.029) H 12/19/16 05:47 Total Protein 7.2 g/dL (6.3-8.2) 12/20/16 06:29 Albumin 3.2 g/dL (3.9-5) L 12/20/16 06:29 Albumin/Globulin Ratio 0.8 % 12/20/16 06:29 Triglycerides 41 mg/dL (2-149) 12/19/16 05:47 Cholesterol 144 mg/dL (50-199) 12/19/16 05:47 LDL Cholesterol Direct 56 mg/dL (50-130) 12/19/16 05:47 HDL Cholesterol 80 mg/dL (40-59) H 12/19/16 05:47 Cholesterol/HDL Ratio 1.80 % 12/19/16 05:47
[2016-12-23] MEDS ORDERED: COREG PO SCH ×2 (07:58→10:00)
[2016-12-23 08:12] VITALS: BP 93/67
[2016-12-23] MEDS: DUONEB 0.5 MG-3 MG/3 ML SOLN IH SCH ×2 (08:43→14:07)
--- NOTE | 2016-12-23 09:41 | XRay Report ---
AP chest x-ray. Findings: Since previous study on December 21, there has been interval improvement in bibasilar infiltrates with complete resolution of the left lower lobe infiltrate. Mild vascular congestion persists but is also slightly improved. No other interval changes are seen.
[2016-12-23] MEDS ORDERED: LEVAQUIN 500MG/100ML 500 MG/100 ML BAG IV SCH (10:00)
--- NOTE | 2016-12-23 10:19 | Progress Note ---
Assessment and Plan End-stage renal disease currently on maintenance hemodialysis on Friday schedule She is currently getting dialyzed at [facility] dialysis otherwise She is not very compliant with her fluid intake as well as dietary sodium Oftentimes her fluid gains are not satisfactory discuss her dialysis nurse Discussed with the dad, her son over the phone about the treatment plan Also discussed with her son Rachel that patient needs to be more compliant with diet fluid restriction and proper follow-up and upon discharge will need to follow up with Dr. Pierre Subjective Interval history: Patient was seen today for follow-up Appears to be comfortable Vitals labs intake output medications were reviewed Events at 24 hours were noted Objective - Vital Signs Vital signs: Vital Signs - 12hr 12/22/16 12/23/16 12/23/16 22:47 00:27 08:00 Temperature 97.7 F 98.9 F Pulse Rate 118 H Pulse Rate [ Anterior Bilateral Throughout] Pulse Rate [ 121 H 112 H Right Radial] Respiratory 20 20 Rate Respiratory Rate [Anterior Bilateral Throughout] Blood Pressure 146/80 Blood Pressure 137/74 93/67 [Right Arm] O2 Sat by Pulse 100 96 Oximetry 12/23/16 08:44 Temperature Pulse Rate Pulse Rate [ 109 H Anterior Bilateral Throughout] Pulse Rate [ Right Radial] Respiratory Rate Respiratory 18 Rate [Anterior Bilateral Throughout] Blood Pressure Blood Pressure [Right Arm] O2 Sat by Pulse 96 Oximetry - General Appearance General appearance: well-developed EENT: mucous membranes moist Neck: no JVD Respiratory: Present: Clear to Ascultation Cardiology: regular Gastrointestinal: normal Neurologic: no focal deficit - Lab 12/22/16 05:16 12/22/16 05:16 Most recent lab results Calcium 7.7 mg/dL (8.4-10.2) L 12/22/16 05:16
[2016-12-23] MEDS ORDERED: NACL 0.9% 100 ML IV PRN (10:23)
--- NOTE | 2016-12-23 11:02 | Nuclear Medicine Report ---
Nuclear medicine ventilation/perfusion lung scan. History: Chest pain and dyspnea. Findings: The ventilation study demonstrates a normal uptake and equilibrium phase. There is bilateral air-trapping seen on the washout phase in the lower two thirds of each lung field. The perfusion scan demonstrates no peripheral segmental or subsegmental defects. Impression: Low probability of embolic disease.
[2016-12-23] MEDS: RENVELA PO SCH ×2 (11:38→12:24)
[2016-12-23] MEDS: NEURONTIN PO SCH (12:24)
[2016-12-23] MEDS: ZYLOPRIM PO SCH (12:24)
[2016-12-23] MEDS: PROTONIX PO SCH (12:24)
[2016-12-23] MEDS: LOVENOX SUB-Q SCH (12:24)
[2016-12-23] MEDS: SENSIPAR PO SCH (12:25)
[2016-12-24] MEDS ORDERED: LEVAQUIN 250MG/50ML 250 MG/50 ML BAG IV SCH (14:00)
== END 2016-12-23 14:06 | disposition home health service (06) | DRG 291 ==
LOC: ED 05:18 → 3A 06:49
PROVIDERS: ADMIT Internal Medicine; ATTEND Internal Medicine
PROC: 5A1D60Z (ICD-10-PCS; principal; 2016-12-19)
PROC: 4A033R1 Measurement of Arterial Saturation, Peripheral, Percutaneous Approach (ICD-10-PCS; 2016-12-19)
DX: I13.2 Hypertensive heart and chronic kidney disease with heart failure and with stage 5 chronic kidney disease, or end stage renal disease (principal); I50.23 Acute on chronic systolic (congestive) heart failure; J18.9 Pneumonia, unspecified organism; N18.6 End stage renal disease; E87.70 Fluid overload, unspecified; E11.22 Type 2 diabetes mellitus with diabetic chronic kidney disease; M10.9 Gout, unspecified; H40.9 Unspecified glaucoma; E87.5 Hyperkalemia; E78.5 Hyperlipidemia, unspecified; D63.1 Anemia in chronic kidney disease; K21.9 Gastro-esophageal reflux disease without esophagitis; E87.79 Other fluid overload; Z86.718 Personal history of other venous thrombosis and embolism; Z88.0 Allergy status to penicillin; Z88.8 Allergy status to other drugs, medicaments and biological substances; Z99.2 Dependence on renal dialysis
CPT/HCPCS: 36415; 71010; 78582; 80048; 80053; 80061; 82140; 82803; 82962; 84484; 85007; 85025; 85027; 87040; 93005; 93010; 94640; 94760; A9270-GY; A9540; A9558; J0456; J1650; J1956; J7030; J7050

== ENCOUNTER 2016-12-26 07:24 | Inpatient (IN) | payer MEDICAID, MEDICARE ==
--- NOTE | 2016-12-26 07:53 | XRay Report ---
AP CHEST: HISTORY: Dyspnea Compared to 12/23/16. Moderate cardiomegaly, mild pulmonary venous congestion and small pleural effusions are suspected. No consolidation or pneumothorax. The bony structures are within normal limits. IMPRESSION: Mild CHF.
[2016-12-26 07:57] LABS: Albumin 3.5 g/dL (3.9-5); Albumin/Globulin Ratio 0.8 %; BUN/Creatinine Ratio 6.66; Bilirubin,Total 0.3 mg/dL (0.1-1.2); Calcium 8.4 mg/dL (8.4-10.2); Chloride 93.3 mmol/L (98-107); Magnesium 2.5 mg/dL (1.7-2.3); Potassium 4.7 mmol/L (3.6-5.0); Total Protein 7.8 g/dL (6.3-8.2)
[2016-12-26 08:05] LABS: Basophils % (Auto) 0.4 % (0.0-1.8); Eosinophils % (Auto) 0.2 % (0.0-4.3); Hematocrit 32.2 % (30.3-42.9); Mean Corpuscular HGB Conc 31 % (30-34); Mean Corpuscular Hemoglobin 28 pg (28-32); Mean Corpuscular Volume 90 fl (79-97); Platelet Count 193 K/mm3 (140-440); Red Blood Count 3.58 M/mm3 (3.65-5.03); White Blood Count 9.8 K/mm3 (4.5-11.0)
--- NOTE | 2016-12-26 08:22 | Emergency Department Report ---
ED Shortness of Breath HPI - General Chief Complaint: Dyspnea/Respdistress Stated Complaint: MILAN/CHEST PAIN Time Seen by Provider: 12/26/16 07:27 Source: patient, EMS Mode of arrival: Stretcher Limitations: Language Barrier - History of Present Illness Initial Comments: 81-year-old female presents to the emergency department via EMS complaining of chest pain and shortness of breath. History is obtained from EMS due to the patient only speaking [place]. Per report, the patient went to dialysis this morning. She reportedly was having difficulty breathing and EMS was called. EMS states that chest pain has been report of the present for 5 days. There are no other complaints. MD Complaint: shortness of breath -: Sudden, This morning Consistency: constant Improves With: oxygen, upright position Worsens With: nothing Treatments Prior to Arrival: oxygen, bronchodilator, asprin - Related Data Home Medications Medication Instructions Recorded Confirmed Last Taken Allopurinol [Zyloprim] 100 mg PO QDAY 12/13/14 12/19/16 11/14/15 Cinacalcet HCl [Sensipar] 60 mg PO DAILY 12/13/14 12/19/16 11/14/15 Gabapentin 300 mg PO QDAY 12/13/14 12/19/16 11/14/15 Rosuvastatin (Nf) [Crestor] 20 mg PO QHS 12/13/14 12/19/16 11/14/15 Sevelamer Carbonate [Renvela] 800 mg PO TIDWM 12/13/14 12/19/16 11/14/15 Previous Rx's Medication Instructions Recorded Last Taken Type Pantoprazole [Protonix TAB] 40 mg PO QDAY #30 tablet 12/09/16 Unknown Rx Azithromycin [Zithromax TAB] 250 mg PO QDAY #10 tablet 12/22/16 Unknown Rx Carvedilol [Coreg] 3.125 mg PO BID #60 tablet 12/22/16 Unknown Rx Ipratropium/Albuterol Sulfate 1 ampul IH TIDRT #30 ampul.neb 12/22/16 Unknown Rx [Duoneb 0.5 mg-3 mg/3 ml Soln] Allergies Allergy/AdvReac Type Severity Reaction Status Date / Time EDI Inhibitors Allergy Unknown Verified 08/26/15 11:37 chloroquine Allergy Itching Verified 12/13/14 09:27 Penicillins Allergy Unknown Verified 08/26/15 11:37 vancomycin Allergy Angioedema Verified 12/13/14 09:27 ED Review of Systems ROS: Stated complaint: MILAN/CHEST PAIN Other details as noted in HPI Comment: All other systems reviewed and negative Respiratory: shortness of breath Cardiovascular: chest pain ED Past Medical Hx - Past Medical History Previous Medical History?: Yes Hx Hypertension: Yes Hx Heart Attack/AMI: No Hx Congestive Heart Failure: Yes Hx Diabetes: Yes Hx Deep Vein Thrombosis: No Hx Renal Disease: Yes (ESRD, dialysis Tues, Thurs, Sat) Additional medical history: gout, glaucoma, cataracts - Surgical History Past Surgical History?: Yes Hx Coronary Stent: No Hx Pacemaker: No Hx Internal Defibrillator: No Additional Surgical History: fistula to left upper thigh - Family History Family history: no significant - Social History Smoking Status: Unknown if ever smoked Substance Use Type: None - Medications Home Medications: Home Medications Medication Instructions Recorded Confirmed Last Taken Type Allopurinol [Zyloprim] 100 mg PO QDAY 12/13/14 12/19/16 11/14/15 History Cinacalcet HCl [Sensipar] 60 mg PO DAILY 12/13/14 12/19/16 11/14/15 History Gabapentin 300 mg PO QDAY 12/13/14 12/19/16 11/14/15 History Rosuvastatin (Nf) [Crestor] 20 mg PO QHS 12/13/14 12/19/16 11/14/15 History Sevelamer Carbonate [Renvela] 800 mg PO TIDWM 12/13/14 12/19/16 11/14/15 History Pantoprazole [Protonix TAB] 40 mg PO QDAY #30 tablet 12/09/16 12/19/16 Unknown Rx Azithromycin [Zithromax TAB] 250 mg PO QDAY #10 tablet 12/22/16 Unknown Rx Carvedilol [Coreg] 3.125 mg PO BID #60 tablet 12/22/16 Unknown Rx Ipratropium/Albuterol Sulfate 1 ampul IH TIDRT #30 ampul.neb 12/22/16 Unknown Rx [Duoneb 0.5 mg-3 mg/3 ml Soln] ED Physical Exam - General Limitations: Language Barrier General appearance: alert, in distress (mild respiratory distress) - Head Head exam: Present: atraumatic, normocephalic - Eye Eye exam: Present: normal appearance, PERRL, EOMI - ENT ENT exam: Present: normal exam, normal orophraynx, mucous membranes moist - Neck Neck exam: Present: normal inspection, full ROM. Absent: tenderness - Respiratory Respiratory exam: Present: respiratory distress (mild tachypnea), decreased breath sounds (bilateral posterior diffuse) - Cardiovascular Cardiovascular Exam: Present: regular rate, normal rhythm, normal heart sounds - GI/Abdominal GI/Abdominal exam: Present: soft, normal bowel sounds. Absent: distended, tenderness - Extremities Exam Extremities exam: Present: normal inspection (fistula noted to left anterior thigh), full ROM. Absent: tenderness - Back Exam Back exam: Present: normal inspection, full ROM. Absent: tenderness - Neurological Exam Neurological exam: Present: alert, oriented X3. Absent: motor sensory deficit - Skin Skin exam: Present: warm, dry, intact ED Course Vital Signs 12/26/16 07:35 Temperature 97.4 F L Pulse Rate 76 Respiratory 26 H Rate Blood Pressure 90/49 O2 Sat by Pulse 98 Oximetry ED Medical Decision Making - Lab Data Result diagrams: 12/26/16 07:32 12/26/16 07:32 - EKG Data -: EKG Interpreted by Me EKG shows normal: sinus rhythm, axis, intervals, QRS complexes Rate: normal - EKG Data When compared to previous EKG there are: changes noted (compared to 12/19/2016) Interpretation: other (ST elevation noted in leads 1, 2, aVL, and V6. There is no reciprocal ST depression) - Radiology Data Radiology results: image reviewed interpreted by me: Chest x-ray shows mild pulmonary edema. - Medical Decision Making Lab and imaging results reviewed. I spoke with Dr. Marvin, nephrology. EKG changes will be discussed with cardiology. Patient had a cardiac catheterization approximately 2 weeks ago at this facility. Patient is to be admitted by the hospitalist. - Differential Diagnosis volume overload, ACS, CHF Critical care attestation.: If time is entered above; I have spent that time in minutes in the direct care of this critically ill patient, excluding procedure time. ED Disposition Clinical Impression: ESRD needing dialysis Volume overload Qualifiers: Hypervolemia type: other Qualified Code(s): E87.79 - Other fluid overload Disposition: OP ADMITTED IP TO THIS HOSP Is pt being admited?: Yes Condition: Stable Time of Disposition: 08:34
--- NOTE | 2016-12-26 08:31 | Admit Criteria Form ---
Admission Criteria Documentation: RENAL FAILURE, CHRONIC Clinical Indications for Admission to Inpatient Care (Place 'X' for any and all applicable criteria): Admission is indicated for ANY ONE of the following (1)(2)(3)(4)(5): [X ]I. Inpatient admission required rather than observation care (Use Renal Failure, Chronic: Observation Care Criteria as appropriate) because of ANY ONE of the following: [X ]a) Volume overload or uremic symptoms (eg, clinically significant pulmonary edema, hypertension, pericarditis, acidosis) too severe for, or not responsive (eg, for over 24 hours) to emergency department or observation care dialysis or treatment regimen (11) [ ]b) Hemodynamic instability that is severe or persistent [ ]c) Respiratory distress that is severe or persistent (11) [ ]d) Clinically significant electrolyte abnormality that requires inpatient care (eg,hyperkalemia with severe ECG findings)[B] [ ]e) Supplement O2 or respiratory therapy for over 24hrs that is performable only in acute inpatient setting [ ]f) Continuous IV infusion of anticoagulation, platelet inhibitor, vasoactive, or Antiarrhythmic medication (15), [ ]g) Pulmonary artery catheter monitoring [ ]h) Temporary pacemaker placement [ ]i) Emergent pericardiocentesis [ ]j) Other condition, treatment or monitoring requiring inpatient admission [ ]II. Unexplained syncope [A] [ ]III. Recurrent seizures [ ]IV. Severe infections not treatable in outpatient setting (eg, peritonitis)(9 ) [ ]V. Cardiac arrhythmias of immediate concern [ ]. Encephalopathy [ ]VII.Bleeding abnormalities (eg, platelet dysfunction) with active (eg, gastrointestinal) bleeding Extended stay beyond goal length of stay may be needed for (3)(4)(35)(36): [ ]a) Continuing uremic complications [ ]b) Comorbidities or complications The original [employer] content created by [employer] has been revised. The portions of the content which have been revised are identified through the use of italic text or in bold, and [facility] [employer] has neither reviewed nor approved the modified material. All other unmodified content is copyright [employer]. Please see references footnoted in the original [facility] edition 2016 Admission Criteria Met: Yes
[2016-12-26] MEDS ORDERED: TYLENOL PO PRN (08:50)
[2016-12-26] MEDS ORDERED: PROVENTIL IH PRN (08:50)
[2016-12-26] MEDS ORDERED: DULCOLAX PR PRN (08:50)
[2016-12-26] MEDS ORDERED: ZOFRAN IV PRN (08:50)
[2016-12-26] MEDS ORDERED: HEPARIN/ 0.45% NACL-25,000 UNIT/500 ML 25,000 UNITS/500 ML BAG IV SCH (10:00)
[2016-12-26] MEDS ORDERED: COREG PO SCH ×2 (10:00)
[2016-12-26] MEDS: NEURONTIN PO SCH (10:57)
[2016-12-26] MEDS: PROTONIX PO SCH (10:58)
[2016-12-26 11:00] LABS: INR 1.19 (0.87-1.13); Partial Thromboplastin Time 27.2 Sec. (24.2-36.6)
--- NOTE | 2016-12-26 11:55 | Consultation ---
History of Present Illness Consult date: 12/26/16 Requesting physician: CINDY MONTGOMERY Consult reason: chest pain, elevated troponin History of present illness: The history was obtained from the medical record as the patient speaks only English. According to ER documentation, the patient began complaining of chest pain and shortness of breath while at dialysis this morning. EKG shows diffuse ST elevation. First troponin level is mildly elevated, 0.074. Cardiac cath done 12/09/16 showed patent coronary arteries. Echo done 08/2016 showed EF 55-60%, impaired relaxation, mild AR. Past History Past Medical History: dialysis, ESRD, hypertension, hyperlipidemia, other (gout) Past Surgical History: Other (AV fistula) Social history: lives with family, full code. denies: smoking, alcohol abuse, prescription drug abuse, IV drug use Family history: no significant family history Medications and Allergies Allergies Allergy/AdvReac Type Severity Reaction Status Date / Time EDI Inhibitors Allergy Unknown Verified 08/26/15 11:37 chloroquine Allergy Itching Verified 12/13/14 09:27 Penicillins Allergy Unknown Verified 08/26/15 11:37 vancomycin Allergy Angioedema Verified 12/13/14 09:27 Home Medications Medication Instructions Recorded Confirmed Last Taken Type Allopurinol [Zyloprim] 100 mg PO QDAY 12/13/14 12/26/16 11/14/15 History Cinacalcet HCl [Sensipar] 90 mg PO DAILY 12/13/14 12/26/16 11/14/15 History Gabapentin 300 mg PO QDAY 12/13/14 12/26/16 11/14/15 History Rosuvastatin (Nf) [Crestor] 20 mg PO QHS 12/13/14 12/26/16 11/14/15 History Sevelamer Carbonate [Renvela] 800 mg PO TIDWM 12/13/14 12/26/16 11/14/15 History Pantoprazole [Protonix TAB] 40 mg PO QDAY #30 tablet 12/09/16 12/26/16 Unknown Rx Ipratropium/Albuterol Sulfate 1 ampul IH TIDRT #30 ampul.neb 12/22/16 12/26/16 Unknown Rx [Duoneb 0.5 mg-3 mg/3 ml Soln] Ergocalciferol [Vitamin D2] 1 cap PO QWEEK 12/26/16 12/26/16 Unknown History Methazolamide [Neptazane] 50 mg PO BID 12/26/16 12/26/16 Unknown History Metoprolol [Lopressor] 100 mg PO DAILY 12/26/16 12/26/16 Unknown History amLODIPine [Norvasc] 10 mg PO DAILY 12/26/16 12/26/16 Unknown History Active Meds: Active Medications Acetaminophen (Tylenol) 650 mg PO Q4H PRN PRN Reason: Pain MILD(1-3)/Fever >100.5/MEADE Albuterol (Proventil) 2.5 mg IH Q3HRT PRN PRN Reason: Shortness Of Breath Albuterol/Ipratropium (Duoneb 0.5 Mg-3 Mg/3 Ml Soln) 1 ampul IH Q6HRT CARLOS Allopurinol (Zyloprim) 100 mg PO QDAY CARLOS Atorvastatin Calcium (Lipitor) 40 mg PO QHS CARLOS Bisacodyl (Dulcolax) 10 mg CO QDAY PRN PRN Reason: Constipation unrelieved by MOM Carvedilol (Coreg) 3.125 mg PO DAILY [facility] Last Admin: 12/26/16 10:57 Dose: 3.125 mg Cinacalcet (Sensipar) 60 mg PO QDAY CARLOS Gabapentin (Neurontin) 300 mg PO QDAY [facility] Last Admin: 12/26/16 10:57 Dose: 300 mg Heparin Sodium/Sodium Chloride (Heparin/ 0.45% Nacl-25,000 Unit/500 Ml) 25,000 units in 500 mls @ 20 mls/hr IV TITRATE CARLOS; 1,000 UNITS/HR PRN Reason: Protocol Last Admin: 12/26/16 10:46 Dose: 1,000 units/hr, 20 mls/hr Ondansetron HCl (Zofran) 4 mg IV Q8H PRN PRN Reason: N/V unrelieved by Reglan Pantoprazole Sodium (Protonix) 40 mg PO QDAY [facility] Last Admin: 12/26/16 10:58 Dose: 40 mg Sevelamer Carbonate (Renvela) 800 mg PO TIDWM [facility] Review of Systems ROS unobtainable: due to mental status (due to language barrier) Physical Examination Last Vital Signs Temp 97.4 F L 12/26/16 07:35 Pulse 70 12/26/16 10:57 Resp 24 12/26/16 10:15 BP 129/69 12/26/16 10:57 Pulse Ox 98 12/26/16 10:15 General appearance: no acute distress, obese HEENT: Positive: Normocephaly, Mucus Membranes Moist Neck: Positive: neck supple, trachea midline Cardiac: Positive: Reg Rate and Rhythm, S1/S2 Lungs: Positive: Rales Neuro: Positive: Grossly Intact Abdomen: Positive: Soft, Active Bowel Sounds Skin: Positive: Clear. Negative: Rash Musculoskeletal: Normal Range of Motion Extremities: Present: normal, edema (trace-bilateral lower legs) Results 12/26/16 07:32 12/26/16 07:32 Coagulation 12/26/16 Range/Units 10:17 PT 15.0 H (12.2-14.9) Sec. INR 1.19 H (0.87-1.13) APTT 27.2 (24.2-36.6) Sec. - Imaging and Cardiology Echo: report reviewed (08/2016: EF 55-60%, impaired relaxation, mild AR) EKG: image reviewed EKG interpretations - Telemetry EKG Rhythm: Sinus Rhythm - EKG Sinus rhythms and dysrhythmias: sinus rhythm Repolarization changes or abnormalities: ST or T wave suggestive of ischemia Assessment and Plan Initiate heparin gtt. Nitrates/calcium channel blockers if BP permits. Obtain additional sets of cardiac enzymes. Obtain echo. - Patient Problems (1) ST segment elevation present on electrocardiogram Current Visit: Yes Status: Acute (2) Elevated troponin Current Visit: Yes Status: Acute (3) Chest pain Current Visit: No Status: Acute Qualifiers: Chest pain type: unspecified Qualified Code(s): R07.9 - Chest pain, unspecified (4) Normal coronary arteries Current Visit: Yes Status: Chronic (5) End stage renal disease on dialysis Current Visit: No Status: Chronic
[2016-12-26 13:16] LABS: Creatine Kinase MB 1.3 ng/mL (0.0-4.0)
[2016-12-26] MEDS ORDERED: DUONEB 0.5 MG-3 MG/3 ML SOLN IH SCH (14:00)
[2016-12-26] MEDS ORDERED: HEPARIN SUB-Q SCH (14:00)
--- NOTE | 2016-12-26 14:59 | Consultation ---
History of Present Illness - History of Present Illness Thank you for the consultation, Patient was evaluated in the ER today around 1020 in the morning Also discussed with cardiology service Dr. Marie Assessment and plan End-stage renal disease patient has abnormal EKG, currently she is on stable for hemodialysis discussed with cardiology will consider reassessing her in the morning Mild volume overload patient has been very poorly compliant with her diet and lifestyle discussed with dialysis nurse she needs to be in a more structured environment with strict diet control sodium restriction and fluid restriction Shortness of breath intermittent with history of chronic fluid overload Anemia and end-stage renal disease to monitored erythropoietin with hemodialysis as needed Secondary hyperparathyroidism to follow Monitor labs CBC basic metabolic profile Maintain high protein diet for dialysis patients in general We'll continue to follow and make recommendations from renal standpoint Past History Past Medical History: dialysis, ESRD, hypertension, hyperlipidemia, other (gout) Past Surgical History: Other (AV fistula) Social history: lives with family, full code. denies: smoking, alcohol abuse, prescription drug abuse, IV drug use Family history: no significant family history Medications and Allergies Allergies Allergy/AdvReac Type Severity Reaction Status Date / Time EDI Inhibitors Allergy Unknown Verified 08/26/15 11:37 chloroquine Allergy Itching Verified 12/13/14 09:27 Penicillins Allergy Unknown Verified 08/26/15 11:37 vancomycin Allergy Angioedema Verified 12/13/14 09:27 Home Medications Medication Instructions Recorded Confirmed Last Taken Type Allopurinol [Zyloprim] 100 mg PO QDAY 12/13/14 12/26/16 11/14/15 History Cinacalcet HCl [Sensipar] 90 mg PO DAILY 12/13/14 12/26/16 11/14/15 History Gabapentin 300 mg PO QDAY 12/13/14 12/26/16 11/14/15 History Rosuvastatin (Nf) [Crestor] 20 mg PO QHS 12/13/14 12/26/16 11/14/15 History Sevelamer Carbonate [Renvela] 800 mg PO TIDWM 12/13/14 12/26/16 11/14/15 History Pantoprazole [Protonix TAB] 40 mg PO QDAY #30 tablet 12/09/16 12/26/16 Unknown Rx Ipratropium/Albuterol Sulfate 1 ampul IH TIDRT #30 ampul.neb 12/22/16 12/26/16 Unknown Rx [Duoneb 0.5 mg-3 mg/3 ml Soln] Ergocalciferol [Vitamin D2] 1 cap PO QWEEK 12/26/16 12/26/16 Unknown History Methazolamide [Neptazane] 50 mg PO BID 12/26/16 12/26/16 Unknown History Metoprolol [Lopressor] 100 mg PO DAILY 12/26/16 12/26/16 Unknown History amLODIPine [Norvasc] 10 mg PO DAILY 12/26/16 12/26/16 Unknown History Active Meds: Active Medications Acetaminophen (Tylenol) 650 mg PO Q4H PRN PRN Reason: Pain MILD(1-3)/Fever >100.5/MEADE Albuterol (Proventil) 2.5 mg IH Q3HRT PRN PRN Reason: Shortness Of Breath Albuterol/Ipratropium (Duoneb 0.5 Mg-3 Mg/3 Ml Soln) 1 ampul IH Q6HRT COUNT [facility]CLUD[facility] Allopurinol (Zyloprim) 100 mg PO QDAY COUNT INCLUDES THE [facility] Atorvastatin Calcium (Lipitor) 40 mg PO QHS CARLOS Bisacodyl (Dulcolax) 10 mg IN QDAY PRN PRN Reason: Constipation unrelieved by MOM Carvedilol (Coreg) 3.125 mg PO DAILY COUNT [facility]CLUD[facility] Last Admin: 12/26/16 10:57 Dose: 3.125 mg Cinacalcet (Sensipar) 60 mg PO QDAY COUNT INCLUDES [facility] Gabapentin (Neurontin) 300 mg PO QDAY COUNT INCLUDES [facility] Last Admin: 12/26/16 10:57 Dose: 300 mg Heparin Sodium/Sodium Chloride (Heparin/ 0.45% Nacl-25,000 Unit/500 Ml) 25,000 units in 500 mls @ 20 mls/hr IV TITRATE CARLOS; 1,000 UNITS/HR PRN Reason: Protocol Last Admin: 12/26/16 10:46 Dose: 1,000 units/hr, 20 mls/hr Ondansetron HCl (Zofran) 4 mg IV Q8H PRN PRN Reason: N/V unrelieved by Reglan Pantoprazole Sodium (Protonix) 40 mg PO QDAY COUNT INCLUDES [facility] Last Admin: 12/26/16 10:58 Dose: 40 mg Sevelamer Carbonate (Renvela) 800 mg PO TIDWM COUNT INCLUDES THE [facility] Exam - Vital Signs Vital signs: Vital Signs Pulse Ox 100 12/26/16 07:26 Results - Lab Results 12/26/16 07:32 12/26/16 07:32 Most recent lab results Calcium 8.4 mg/dL (8.4-10.2) 12/26/16 07:32 Magnesium 2.5 mg/dL (1.7-2.3) H 12/26/16 07:32
[2016-12-26] MEDS: SENSIPAR PO SCH (15:52)
[2016-12-26] MEDS: ZYLOPRIM PO SCH (15:52)
[2016-12-26] MEDS: RENVELA PO SCH ×2 (15:53→17:31)
[2016-12-26] MEDS: DUONEB 0.5 MG-3 MG/3 ML SOLN IH SCH ×3 (16:21→19:52)
[2016-12-26] MEDS: ASPIRIN PO SCH (17:29)
--- NOTE | 2016-12-26 18:04 | History and Physical Report ---
History of Present Illness Date of examination: 12/26/16 Date of admission: 12/26/16 08:50 Chief complaint: chest pain History of present illness: Patient is a pleasant 81-year-old female Spanish speaking lady with a history of end-stage renal disease on hemodialysis, diastolic heart failure with ejection fraction of 55-60% on last echo. Who was recently discharged from the hospital following an admission for shortness of breath. At that time she was dialyzed. A review of her previous cardiac catheterization was done which was unremarkable at a time. The patient did improve following dialysis was noted to have hypotensive episodes for which patient was discontinued on Norvasc and started on low dose beta elizabeth with better control. She subsequently was discharged home after recommendation for intermediate facility which the family rejected at the time. She presents today to the hospital from the dialysis dialysis Center where she was noted to have chest pain which she states has been ongoing for 5 days and with some difficulty breathing. She was not dialyzed at the Center was sent to the ER for evaluation. Information obtained via java designer she reports substernal chest discomfort non raidiating. she rates it a 5/10 in intensity. She denies diaphoresis. She denies dysphagia. She denies nausea vomiting or diarrhea. She was noted to have changes on EKG for which is concerning with elevated troponin although her troponin is abnormally elevated it is concerning due to this changes and ST segments. ROS Constitutional: No fever, fatigue or weight loss. Skin: No rash. Eyes: No recent vision problems or eye pain. ENT: No congestion, ear pain, or sore throat. Endocrine: No thyroid problems. Cardiovascular: reports chest pain. Respiratory: Shortness of breath with no cough, congestion, or wheezing. Gastrointestinal: No abdominal pain, nausea, vomiting, or diarrhea. Genitourinary: No dysuria. Musculoskeletal: No joint swelling. Neurologic: No seizures. Hematologic: No unusual bruising or bleeding. Psychiatric: No psychiatric problems, hallucinations or depression. All other systems reviewed and otherwise negative. Past History Past Medical History: dialysis, ESRD, hypertension, hyperlipidemia, other (gout) Past Surgical History: Other (AV fistula) Social history: lives with family, full code. denies: smoking, alcohol abuse, prescription drug abuse, IV drug use Family history: no significant family history Medications and Allergies Allergies Allergy/AdvReac Type Severity Reaction Status Date / Time EDI Inhibitors Allergy Unknown Verified 08/26/15 11:37 chloroquine Allergy Itching Verified 12/13/14 09:27 Penicillins Allergy Unknown Verified 08/26/15 11:37 vancomycin Allergy Angioedema Verified 12/13/14 09:27 Home Medications Medication Instructions Recorded Confirmed Last Taken Type Allopurinol [Zyloprim] 100 mg PO QDAY 12/13/14 12/26/16 11/14/15 History Cinacalcet HCl [Sensipar] 90 mg PO DAILY 12/13/14 12/26/16 11/14/15 History Gabapentin 300 mg PO QDAY 12/13/14 12/26/16 11/14/15 History Rosuvastatin (Nf) [Crestor] 20 mg PO QHS 12/13/14 12/26/16 11/14/15 History Sevelamer Carbonate [Renvela] 800 mg PO TIDWM 12/13/14 12/26/16 11/14/15 History Pantoprazole [Protonix TAB] 40 mg PO QDAY #30 tablet 12/09/16 12/26/16 Unknown Rx Ipratropium/Albuterol Sulfate 1 ampul IH TIDRT #30 ampul.neb 12/22/16 12/26/16 Unknown Rx [Duoneb 0.5 mg-3 mg/3 ml Soln] Ergocalciferol [Vitamin D2] 1 cap PO QWEEK 12/26/16 12/26/16 Unknown History Methazolamide [Neptazane] 50 mg PO BID 12/26/16 12/26/16 Unknown History Metoprolol [Lopressor] 100 mg PO DAILY 12/26/16 12/26/16 Unknown History amLODIPine [Norvasc] 10 mg PO DAILY 12/26/16 12/26/16 Unknown History Active Meds: Active Medications Acetaminophen (Tylenol) 650 mg PO Q4H PRN PRN Reason: Pain MILD(1-3)/Fever >100.5/MEADE Albuterol (Proventil) 2.5 mg IH Q3HRT PRN PRN Reason: Shortness Of Breath Albuterol/Ipratropium (Duoneb 0.5 Mg-3 Mg/3 Ml Soln) 1 ampul [facility] Q6HRT [facility] Last Admin: 12/26/16 17:33 Dose: 1 ampul Allopurinol (Zyloprim) 100 mg PO QDAY [facility] Last Admin: 12/26/16 15:52 Dose: Not Given Aspirin (Aspirin) 325 mg PO QDAY [facility] Last Admin: 12/26/16 17:29 Dose: 325 mg Atorvastatin Calcium (Lipitor) 40 mg PO QHS CARLOS Bisacodyl (Dulcolax) 10 mg MD QDAY PRN PRN Reason: Constipation unrelieved by MOM Carvedilol (Coreg) 3.125 mg PO DAILY [facility] Last Admin: 12/26/16 10:57 Dose: 3.125 mg Cinacalcet (Sensipar) 60 mg PO QDAY [facility] Last Admin: 12/26/16 15:52 Dose: Not Given Gabapentin (Neurontin) 300 mg PO QDAY [facility] Last Admin: 12/26/16 10:57 Dose: 300 mg Heparin Sodium/Sodium Chloride (Heparin/ 0.45% Nacl-25,000 Unit/500 Ml) 25,000 units in 500 mls @ 20 mls/hr IV TITRATE CARLOS; 1,000 UNITS/HR PRN Reason: Protocol Last Admin: 12/26/16 10:46 Dose: 1,000 units/hr, 20 mls/hr Metoclopramide HCl (Reglan) 5 mg PO Q8H CARLOS Ondansetron HCl (Zofran) 4 mg IV Q8H PRN PRN Reason: N/V unrelieved by Reglan Last Admin: 12/26/16 17:31 Dose: 4 mg Pantoprazole Sodium (Protonix) 40 mg PO QDAY [facility] Last Admin: 12/26/16 10:58 Dose: 40 mg Sevelamer Carbonate (Renvela) 800 mg PO TIDWM [facility] Last Admin: 12/26/16 17:31 Dose: 800 mg Exam - Physical Exam Narrative exam: VITAL SIGNS: Reviewed. GENERAL: The patient appeared well nourished and normally developed. Vital signs as documented. HEAD: No signs of head trauma. EYES: Pupils are equal. Extraocular motions intact. EARS: Hearing grossly intact. MOUTH: Oropharynx is normal. NECK: No adenopathy, no JVD. CHEST: Chest with diminished breath sounds bilaterally. No wheezes, rales, or rhonchi. CARDIAC: Regular rate and rhythm. S1 and S2, without murmurs, gallops, or rubs. VASCULAR: Trace edema. Peripheral pulses normal and equal in all extremities. ABDOMEN: Soft, without detectable tenderness. No sign of distention. No rebound or guarding, and no masses palpated. Bowel Sounds normal. MUSCULOSKELETAL: Good range of motion of all major joints. Extremities without clubbing, cyanosis. Trace. NEUROLOGIC EXAM: Alert and oriented x 3. No focal sensory or strength deficits. Speech normal. Follows commands. PSYCHIATRIC: Mood normal. SKIN: No rash or lesions. - Constitutional Vitals: Temp Pulse Resp BP Pulse Ox 97.2 F L 94 H 20 113/55 92 12/26/16 17:09 12/26/16 17:46 12/26/16 17:46 12/26/16 17:09 12/26/16 17:09 Results - Labs CBC & Chem 7: 12/26/16 07:32 12/26/16 07:32 Labs: Laboratory Last Values WBC 9.8 K/mm3 (4.5-11.0) 12/26/16 07:32 RBC 3.58 M/mm3 (3.65-5.03) L 12/26/16 07:32 Hgb 10.0 gm/dl (10.1-14.3) L 12/26/16 07:32 Hct 32.2 % (30.3-42.9) 12/26/16 07:32 MCV 90 fl (79-97) 12/26/16 07:32 MCH 28 pg (28-32) 12/26/16 07:32 MCHC 31 % (30-34) 12/26/16 07:32 RDW 20.0 % (13.2-15.2) H 12/26/16 07:32 Plt Count 193 K/mm3 (140-440) 12/26/16 07:32 Lymph % (Auto) 8.0 % (13.4-35.0) L 12/26/16 07:32 [place] % (Auto) 10.1 % (0.0-7.3) H 12/26/16 07:32 Eos % (Auto) 0.2 % (0.0-4.3) 12/26/16 07:32 Baso % (Auto) 0.4 % (0.0-1.8) 12/26/16 07:32 Lymph # 0.8 K/mm3 (1.2-5.4) L 12/26/16 07:32 [place] # 1.0 K/mm3 (0.0-0.8) H 12/26/16 07:32 Eos # 0.0 K/mm3 (0.0-0.4) 12/26/16 07:32 Baso # 0.0 K/mm3 (0.0-0.1) 12/26/16 07:32 Seg Neutrophils % 81.3 % (40.0-70.0) H 12/26/16 07:32 Seg Neutrophils # 8.0 K/mm3 (1.8-7.7) H 12/26/16 07:32 PT 15.0 Sec. (12.2-14.9) H 12/26/16 10:17 INR 1.19 (0.87-1.13) H 12/26/16 10:17 APTT 27.2 Sec. (24.2-36.6) 12/26/16 10:17 Sodium 141 mmol/L (137-145) 12/26/16 07:32 Potassium 4.7 mmol/L (3.6-5.0) 12/26/16 07:32 Chloride 93.3 mmol/L (98-107) L 12/26/16 07:32 Carbon Dioxide 32 mmol/L (22-30) H D 12/26/16 07:32 Anion Gap 20 mmol/L 12/26/16 07:32 BUN 68 mg/dL (7-17) H 12/26/16 07:32 Creatinine 10.2 mg/dL (0.7-1.2) H D 12/26/16 07:32 Estimated GFR 4 ml/min 12/26/16 07:32 BUN/Creatinine Ratio 6.66 % 12/26/16 07:32 Glucose 166 mg/dL (65-100) H 12/26/16 07:32 Calcium 8.4 mg/dL (8.4-10.2) 12/26/16 07:32 Magnesium 2.5 mg/dL (1.7-2.3) H 12/26/16 07:32 Total Bilirubin 0.3 mg/dL (0.1-1.2) 12/26/16 07:32 AST 19 units/L (5-40) 12/26/16 07:32 ALT 14 units/L (7-56) 12/26/16 07:32 Alkaline Phosphatase 204 units/L (35-129) H 12/26/16 07:32 Total Creatine Kinase 108 units/L (30-135) 12/26/16 11:59 CK-MB (CK-2) 1.3 ng/mL (0.0-4.0) 12/26/16 11:59 CK-MB (CK-2) Rel Index 1.2 (0-4) 12/26/16 11:59 Troponin T 0.076 ng/mL (0.00-0.029) H 12/26/16 11:59 Total Protein 7.8 g/dL (6.3-8.2) 12/26/16 07:32 Albumin 3.5 g/dL (3.9-5) L 12/26/16 07:32 Albumin/Globulin Ratio 0.8 % 12/26/16 07:32 Triglycerides 74 mg/dL (2-149) 12/26/16 07:32 Cholesterol 98 mg/dL (50-199) 12/26/16 07:32 LDL Cholesterol Direct 44 mg/dL (50-130) L 12/26/16 07:32 HDL Cholesterol 40 mg/dL (40-59) 12/26/16 07:32 Cholesterol/HDL Ratio 2.45 % 12/26/16 07:32 - Imaging and Cardiology EKG: image reviewed (ST segment elevation) Chest x-ray: image reviewed (mild congestion) Assessment and Plan Assessment and plan: Patient is a pleasant 81-year-old female Spanish speaking lady with a history of end-stage renal disease on hemodialysis, diastolic heart failure with ejection fraction of 55-60% on last echo. Who was recently discharged from the hospital following an admission for shortness of breath. At that time she was dialyzed. A review of her previous cardiac catheterization was done which was unremarkable at a time. The patient did improve following dialysis was noted to have hypotensive episodes for which patient was discontinued on Norvasc and started on low dose beta elizabeth with better control. She subsequently was discharged home after recommendation for intermediate facility which the family rejected at the time. She presents today to the hospital from the [facility] where she was noted to have chest pain which she states has been ongoing for 5 days and difficulty breathing. She was not dialyzed at the Center was sent to the ER for evaluation. Information obtained via java designer she reports substernal chest discomfort. She denies diaphoresis. She denies dysphagia. She denies nausea vomiting or diarrhea. She was noted to have changes on EKG for which is concerning with elevated troponin although her troponin is abnormally elevated it is concerning due to this changes and ST segments. * chest pain with ST segment elevation not consistent with STEMI * postive troponin in a patient with chronically evelvated with elevated troponin * CHEST PAIN * Acute and chronic respiratory failure with hypoxia * Hypotension * Acute on chronic diastolic heart failure * End-stage renal disease * Morbid obesity * Debility * Secondary hyperparathyroidism Plan * Admitted to telemetry, restart home medication. Hold beta elizabeth * Discussed with pattern illustrator will start patient on heparin drip and sent for vasospastic angina also possible pericarditis * We'll initiate nitrates alkaline phosphatase of general blockers and blood pressure permits * We'll obtain a repeat echocardiogram and monitor cardiac enzymes * Nephrology consultation for possible dialysis * Will need physical therapy evaluation and treat prior to discharge * Monitor daily labs * DVT and GI prophylaxis * Critical care Time 33 minutes Advance Directives: Yes Plan of care discussed with patient/family: Yes
[2016-12-26 18:35] LABS: Creatine Kinase MB 1.6 ng/mL (0.0-4.0)
[2016-12-27] MEDS: DUONEB 0.5 MG-3 MG/3 ML SOLN IH SCH ×5 (02:00→20:06)
[2016-12-27] MEDS: REGLAN PO SCH ×3 (02:10→18:27)
[2016-12-27 06:30] LABS: Basophils % (Auto) 0.3 % (0.0-1.8); Eosinophils % (Auto) 0.3 % (0.0-4.3); Hematocrit 33.8 % (30.3-42.9); Hemoglobin 10.3 gm/dl (10.1-14.3); Mean Corpuscular HGB Conc 31 % (30-34); Mean Corpuscular Hemoglobin 28 pg (28-32); Mean Corpuscular Volume 91 fl (79-97); Platelet Count 226 K/mm3 (140-440); Red Blood Count 3.71 M/mm3 (3.65-5.03); Red Cell Distribution Width 19.7 % (13.2-15.2); White Blood Count 7.8 K/mm3 (4.5-11.0)
[2016-12-27 06:32] LABS: BUN/Creatinine Ratio 7.25; Calcium 7.8 mg/dL (8.4-10.2); Chloride 92.4 mmol/L (98-107)
[2016-12-27 06:39] LABS: Potassium 6.4 mmol/L (3.6-5.0)
[2016-12-27] MEDS: SENSIPAR PO SCH (09:57)
[2016-12-27] MEDS: ZYLOPRIM PO SCH (09:57)
[2016-12-27] MEDS: PROTONIX PO SCH (09:58)
[2016-12-27] MEDS: NEPTAZANE PO SCH ×2 (09:58→21:58)
[2016-12-27] MEDS: ASPIRIN PO SCH (09:58)
[2016-12-27] MEDS: RENVELA PO SCH ×3 (09:58→18:10)
[2016-12-27] MEDS: NEURONTIN PO SCH (10:08)
--- NOTE | 2016-12-27 10:58 | Progress Note ---
Assessment and Plan Initiate NSAIDs. Await echo findings. - Patient Problems (1) Acute pericarditis Current Visit: Yes Status: Acute Qualifiers: Pericarditis type: P Infectious pericarditis etiology: I (2) ST segment elevation present on electrocardiogram Current Visit: Yes Status: Acute (3) Elevated troponin Current Visit: Yes Status: Acute (4) Chest pain Current Visit: No Status: Acute Qualifiers: Chest pain type: unspecified Qualified Code(s): R07.9 - Chest pain, unspecified (5) Normal coronary arteries Current Visit: Yes Status: Chronic (6) End stage renal disease on dialysis Current Visit: No Status: Chronic Subjective Date of service: 12/27/16 Principal diagnosis: chest pain Interval history: The patient is resting in bed. She c/o chest pain that is worse with deep inspiration. Sinus rhythm on the monitor. Objective Last Vital Signs Temp 98.0 F 12/27/16 08:33 Pulse 78 12/27/16 10:20 Resp 20 12/27/16 10:20 BP 111/65 12/27/16 08:33 Pulse Ox 97 12/27/16 10:00 - Physical Examination General: No Apparent Distress HEENT: Positive: Normocephaly, Mucus Membranes Moist Neck: Positive: neck supple, trachea midline Cardiac: Positive: Reg Rate and Rhythm, S1/S2 Lungs: Positive: clear to auscultation Neuro: Positive: Grossly Intact Abdomen: Positive: Soft, Active Bowel Sounds Skin: Positive: Clear. Negative: Rash Musculoskeletal: Normal Range of Motion Extremities: Present: normal, edema (trace-bilateral lower legs) - Labs and Meds Cardiac Enzymes 12/26/16 12/26/16 Range/Units 11:59 17:12 CK-MB (CK-2) 1.3 1.6 (0.0-4.0) ng/mL Coagulation 12/26/16 Range/Units 10:17 PT 15.0 H (12.2-14.9) Sec. INR 1.19 H (0.87-1.13) APTT 27.2 (24.2-36.6) Sec. CBC 12/27/16 Range/Units 04:00 WBC 7.8 (4.5-11.0) K/mm3 RBC 3.71 (3.65-5.03) M/mm3 Hgb 10.3 (10.1-14.3) gm/dl Hct 33.8 (30.3-42.9) % Plt Count 226 (140-440) K/mm3 Lymph # 0.8 L (1.2-5.4) K/mm3 [place] # 0.9 H (0.0-0.8) K/mm3 Eos # 0.0 (0.0-0.4) K/mm3 Baso # 0.0 (0.0-0.1) K/mm3 Comprehensive Metabolic Panel 12/27/16 Range/Units 04:00 Sodium 137 (137-145) mmol/L Potassium 6.4 H* D (3.6-5.0) mmol/L Chloride 92.4 L (98-107) mmol/L Carbon Dioxide 26 (22-30) mmol/L BUN 82 H (7-17) mg/dL Creatinine 11.3 H (0.7-1.2) mg/dL Glucose 93 (65-100) mg/dL Calcium 7.8 L (8.4-10.2) mg/dL - Imaging and Cardiology EKG: image reviewed (ST segment elevation) Echo: report reviewed (08/2016: EF 55-60%, impaired relaxation, mild AR) - Telemetry EKG Rhythm: Sinus Rhythm - EKG Sinus rhythms and dysrhythmias: sinus rhythm Repolarization changes or abnormalities: ST or T wave suggestive of ischemia
[2016-12-27 11:15] LABS: BUN/Creatinine Ratio 6.66; Calcium 7.8 mg/dL (8.4-10.2); Chloride 94.5 mmol/L (98-107)
[2016-12-27] MEDS ORDERED: NACL 0.9% 100 ML IV PRN (11:50)
[2016-12-27 12:12] LABS: Potassium 6.5 mmol/L (3.6-5.0)
[2016-12-27] MEDS: INDOCIN PO SCH ×2 (14:51→21:58)
[2016-12-27] MEDS ORDERED: KIONEX PO ONE (17:12)
[2016-12-27] MEDS ORDERED: D50W (25GM) IV ONE (17:13)
[2016-12-27] MEDS ORDERED: PROAIR IH ONE (17:14)
--- NOTE | 2016-12-27 17:23 | Progress Note ---
History Interval history: no specific complaints Hospitalist Physical - Constitutional Vitals: Temp Pulse Resp BP Pulse Ox 98.4 F 107 H 16 84/52 93 12/27/16 13:25 12/27/16 16:45 12/27/16 13:25 12/27/16 16:45 12/27/16 11:28 General appearance: Present: no acute distress, obese Results - Labs CBC & Chem 7: 12/27/16 04:00 12/27/16 09:45 Labs: Laboratory Last Values WBC 7.8 K/mm3 (4.5-11.0) 12/27/16 04:00 RBC 3.71 M/mm3 (3.65-5.03) 12/27/16 04:00 Hgb 10.3 gm/dl (10.1-14.3) 12/27/16 04:00 Hct 33.8 % (30.3-42.9) 12/27/16 04:00 MCV 91 fl (79-97) 12/27/16 04:00 MCH 28 pg (28-32) 12/27/16 04:00 MCHC 31 % (30-34) 12/27/16 04:00 RDW 19.7 % (13.2-15.2) H 12/27/16 04:00 Plt Count 226 K/mm3 (140-440) 12/27/16 04:00 Lymph % (Auto) 10.4 % (13.4-35.0) L 12/27/16 04:00 [place] % (Auto) 10.9 % (0.0-7.3) H 12/27/16 04:00 Eos % (Auto) 0.3 % (0.0-4.3) 12/27/16 04:00 Baso % (Auto) 0.3 % (0.0-1.8) 12/27/16 04:00 Lymph # 0.8 K/mm3 (1.2-5.4) L 12/27/16 04:00 [place] # 0.9 K/mm3 (0.0-0.8) H 12/27/16 04:00 Eos # 0.0 K/mm3 (0.0-0.4) 12/27/16 04:00 Baso # 0.0 K/mm3 (0.0-0.1) 12/27/16 04:00 Seg Neutrophils % 78.1 % (40.0-70.0) H 12/27/16 04:00 Seg Neutrophils # 6.1 K/mm3 (1.8-7.7) 12/27/16 04:00 PT 15.0 Sec. (12.2-14.9) H 12/26/16 10:17 INR 1.19 (0.87-1.13) H 12/26/16 10:17 APTT 27.2 Sec. (24.2-36.6) 12/26/16 10:17 Heparin Anti-Xa Level < 0.10 U.I./ml (0.3-0.7) L 12/27/16 05:06 Sodium 140 mmol/L (137-145) 12/27/16 09:45 Potassium 6.5 mmol/L (3.6-5.0) H* 12/27/16 09:45 Chloride 94.5 mmol/L (98-107) L 12/27/16 09:45 Carbon Dioxide 29 mmol/L (22-30) 12/27/16 09:45 Anion Gap 23 mmol/L 12/27/16 09:45 BUN 82 mg/dL (7-17) H 12/27/16 09:45 Creatinine 12.3 mg/dL (0.7-1.2) H 12/27/16 09:45 Estimated GFR 4 ml/min 12/27/16 09:45 BUN/Creatinine Ratio 6.66 % 12/27/16 09:45 Glucose 82 mg/dL (65-100) 12/27/16 09:45 Calcium 7.8 mg/dL (8.4-10.2) L 12/27/16 09:45 Magnesium 2.5 mg/dL (1.7-2.3) H 12/26/16 07:32 Total Bilirubin 0.3 mg/dL (0.1-1.2) 12/26/16 07:32 AST 19 units/L (5-40) 12/26/16 07:32 ALT 14 units/L (7-56) 12/26/16 07:32 Alkaline Phosphatase 204 units/L (35-129) H 12/26/16 07:32 Total Creatine Kinase 124 units/L (30-135) 12/26/16 17:12 CK-MB (CK-2) 1.6 ng/mL (0.0-4.0) 12/26/16 17:12 CK-MB (CK-2) Rel Index 1.2 (0-4) 12/26/16 17:12 Troponin T 0.065 ng/mL (0.00-0.029) H 12/26/16 17:12 Total Protein 7.8 g/dL (6.3-8.2) 12/26/16 07:32 Albumin 3.5 g/dL (3.9-5) L 12/26/16 07:32 Albumin/Globulin Ratio 0.8 % 12/26/16 07:32 Triglycerides 74 mg/dL (2-149) 12/26/16 07:32 Cholesterol 98 mg/dL (50-199) 12/26/16 07:32 LDL Cholesterol Direct 44 mg/dL (50-130) L 12/26/16 07:32 HDL Cholesterol 40 mg/dL (40-59) 12/26/16 07:32 Cholesterol/HDL Ratio 2.45 % 12/26/16 07:32
--- NOTE | 2016-12-27 20:23 | Progress Note ---
Assessment and Plan end-stage renal disease patient is currently on maintenance hemodialysis, on Friday at the dialysis clinic Patient will dialyze here on Friday She was admitted with chest pain that has been diagnosed with pericarditis would like to avoid heparin with hemodialysis Blood pressure tends to run low in her case will do judicious hemodialysis and ultrafiltration discussed with dialysis nurse to use albumin if needed Anemia and end-stage renal disease to monitor and follow Secondary hyperparathyroidism to follow according to the dialysis unit patient needs to be on strict fluid restriction and sodium restriction but she does not follow discussed with clinic encounter dialysis yesterday We'll continue to follow and make recommendation for renal standpoint, if stable can be considered for ultrafiltration along tomorrow for 2 hours Subjective Principal diagnosis: chest pain Interval history: patient was seen today for follow-up from multiple renal-related issues currently she is being dialyzed without heparin due to pericarditis Blood pressure has been in the low normal range patient appears to be comfortable Discussed with dialysis nurse current access is working well Events of 24 hours vitals labs intake output medications were reviewed Objective - Vital Signs Vital signs: Vital Signs - 12hr 12/27/16 12/27/16 12/27/16 08:33 10:00 10:08 Temperature 98.0 F Pulse Rate 78 Pulse Rate [ 76 Anterior Bilateral Throughout] Pulse Rate [ 70 Left Radial] Respiratory 20 Rate Respiratory 20 Rate [Anterior Bilateral Throughout] Blood Pressure Blood Pressure 111/65 [Left Arm] O2 Sat by Pulse 100 97 Oximetry 12/27/16 12/27/16 12/27/16 10:20 11:28 13:25 Temperature 98.6 F 98.4 F Pulse Rate 64 Pulse Rate [ 78 Anterior Bilateral Throughout] Pulse Rate [ 71 Left Radial] Respiratory 20 16 Rate Respiratory 20 Rate [Anterior Bilateral Throughout] Blood Pressure 106/50 Blood Pressure 130/60 [Left Arm] O2 Sat by Pulse 93 Oximetry 12/27/16 12/27/16 12/27/16 13:45 14:00 14:15 Temperature Pulse Rate 63 58 L 62 Pulse Rate [ Anterior Bilateral Throughout] Pulse Rate [ Left Radial] Respiratory Rate Respiratory Rate [Anterior Bilateral Throughout] Blood Pressure 100/53 92/49 97/51 Blood Pressure [Left Arm] O2 Sat by Pulse Oximetry 12/27/16 12/27/16 12/27/16 14:30 14:45 15:00 Temperature Pulse Rate 57 L 66 63 Pulse Rate [ Anterior Bilateral Throughout] Pulse Rate [ Left Radial] Respiratory Rate Respiratory Rate [Anterior Bilateral Throughout] Blood Pressure 98/44 100/14 90/45 Blood Pressure [Left Arm] O2 Sat by Pulse Oximetry 12/27/16 12/27/16 12/27/16 15:15 15:30 15:45 Temperature Pulse Rate 64 131 H 126 H Pulse Rate [ Anterior Bilateral Throughout] Pulse Rate [ Left Radial] Respiratory Rate Respiratory Rate [Anterior Bilateral Throughout] Blood Pressure 115/53 92/54 98/59 Blood Pressure [Left Arm] O2 Sat by Pulse Oximetry 12/27/16 12/27/16 12/27/16 16:00 16:15 16:30 Temperature Pulse Rate 104 H 107 H 122 H Pulse Rate [ Anterior Bilateral Throughout] Pulse Rate [ Left Radial] Respiratory Rate Respiratory Rate [Anterior Bilateral Throughout] Blood Pressure 92/46 97/56 93/48 Blood Pressure [Left Arm] O2 Sat by Pulse Oximetry 12/27/16 12/27/16 12/27/16 16:45 17:00 17:10 Temperature 98.4 F Pulse Rate 107 H 47 L 106 H Pulse Rate [ Anterior Bilateral Throughout] Pulse Rate [ Left Radial] Respiratory 20 Rate Respiratory Rate [Anterior Bilateral Throughout] Blood Pressure 84/52 102/56 112/49 Blood Pressure [Left Arm] O2 Sat by Pulse Oximetry 12/27/16 20:09 Temperature Pulse Rate Pulse Rate [ 67 Anterior Bilateral Throughout] Pulse Rate [ Left Radial] Respiratory Rate Respiratory 20 Rate [Anterior Bilateral Throughout] Blood Pressure Blood Pressure [Left Arm] O2 Sat by Pulse 96 Oximetry - General Appearance General appearance: appears stated age EENT: mucous membranes moist Respiratory: Present: Clear to Ascultation Cardiology: regular Gastrointestinal: normal (nontender abdomen) Neurologic: other (alert and follows commands) - Lab 12/27/16 04:00 12/27/16 09:45 Most recent lab results Calcium 7.8 mg/dL (8.4-10.2) L 12/27/16 09:45 Magnesium 2.5 mg/dL (1.7-2.3) H 12/26/16 07:32
[2016-12-27] MEDS: HEPARIN SUB-Q SCH (21:58)
[2016-12-28] MEDS: HEPARIN SUB-Q SCH ×3 (05:31→22:15)
[2016-12-28] MEDS: REGLAN PO SCH ×3 (05:31→17:59)
[2016-12-28 05:38] LABS: Hemoglobin 9.9 gm/dl (10.1-14.3)
[2016-12-28 05:39] LABS: Hematocrit 32.7 % (30.3-42.9)
[2016-12-28 06:55] LABS: BUN/Creatinine Ratio 5.78; Calcium 7.8 mg/dL (8.4-10.2); Chloride 92.7 mmol/L (98-107); Potassium 4.6 mmol/L (3.6-5.0)
[2016-12-28] MEDS: DUONEB 0.5 MG-3 MG/3 ML SOLN IH SCH ×3 (07:43→19:51)
[2016-12-28] MEDS: INDOCIN PO SCH ×3 (10:42→22:15)
[2016-12-28] MEDS: NEURONTIN PO SCH (10:42)
[2016-12-28] MEDS: ZYLOPRIM PO SCH (10:42)
[2016-12-28] MEDS: PROTONIX PO SCH (10:42)
[2016-12-28] MEDS: RENVELA PO SCH ×3 (10:42→17:08)
[2016-12-28] MEDS: ASPIRIN PO SCH (10:42)
[2016-12-28] MEDS: SENSIPAR PO SCH (10:43)
[2016-12-28] MEDS: NEPTAZANE PO SCH ×2 (10:43→22:15)
[2016-12-28] MEDS ORDERED: NACL 0.9% 100 ML IV PRN (13:43)
--- NOTE | 2016-12-28 13:47 | Progress Note ---
Assessment and Plan Impression: * End stage renal disease on HD * Acute pericarditis * Hypertension * Secondary hyperparathyroidism * Anemia secondary to CKD Plan: * Hemodialysis today - UF as tolerated; no heparin with dialysis * NSAIDs started by cardiology * TTE pending * Renal diet * Dose medications for renal function Subjective Date of service: 12/28/16 Principal diagnosis: chest pain Interval history: No acute events overnight Objective - Vital Signs Vital signs: Vital Signs - 12hr 12/28/16 12/28/16 12/28/16 05:45 07:43 07:53 Temperature 97.4 F L Pulse Rate Pulse Rate [ 70 68 Anterior Bilateral Throughout] Pulse Rate [ 63 Left Radial] Respiratory 20 Rate Respiratory 18 18 Rate [Anterior Bilateral Throughout] Blood Pressure 125/57 [Left Arm] O2 Sat by Pulse 98 98 Oximetry 12/28/16 12/28/16 12/28/16 09:45 10:00 11:42 Temperature 97.5 F L Pulse Rate 65 Pulse Rate [ Anterior Bilateral Throughout] Pulse Rate [ 72 Left Radial] Respiratory 18 18 Rate Respiratory Rate [Anterior Bilateral Throughout] Blood Pressure 117/58 [Left Arm] O2 Sat by Pulse Oximetry - General Appearance General appearance: well-developed, well-nourished EENT: ATNC Respiratory: Present: Decreased Breath Sounds (at lateral bases) Cardiology: regular, S1S2, other (heart sounds diminished; cannot appreciate pericardial friction rub) Gastrointestinal: no tenderness, no distended, obese Integumentary: no rash Musculoskeletal: other (+edema) Psychiatric: cooperative - Lab 12/28/16 03:35 12/28/16 06:12 Most recent lab results Calcium 7.8 mg/dL (8.4-10.2) L 12/28/16 06:12 Magnesium 2.5 mg/dL (1.7-2.3) H 12/26/16 07:32
--- NOTE | 2016-12-28 16:32 | Progress Note ---
Assessment and Plan Present management. Monitor BP. Will follow. - Patient Problems (1) Acute pericarditis Current Visit: Yes Status: Acute Qualifiers: Pericarditis type: P Infectious pericarditis etiology: I (2) ESRD needing dialysis Current Visit: Yes Status: Chronic (3) Elevated troponin Current Visit: Yes Status: Acute (4) Volume overload Current Visit: Yes Status: Acute Qualifiers: Hypervolemia type: other Qualified Code(s): E87.79 - Other fluid overload (5) Normal coronary arteries Current Visit: Yes Status: Chronic (6) Acute chest pain Current Visit: No Status: Acute (7) Acute on chronic systolic CHF (congestive heart failure) Current Visit: No Status: Acute (8) Diabetes Current Visit: No Status: Chronic Qualifiers: Diabetes mellitus type: type 1 Diabetes mellitus complication status: without complication Diabetes mellitus complication detail: D Diabetic retinopathy severity: D Proliferative retinopathy type: P Diabetes mellitus macular edema: D Diabetes mellitus mcfp insulin use: D Laterality: L Chronic kidney disease stage: C Qualified Code(s): E10.9 - Type 1 diabetes mellitus without complications (9) ESRD (end stage renal disease) Current Visit: No Status: Chronic (10) Pleural effusion, left Current Visit: No Status: Acute (11) Pneumonia Current Visit: No Status: Acute Qualifiers: Pneumonia type: P Aspiration pneumonia type: A Laterality: L Lung location: L (12) Syncope Current Visit: No Status: Acute Qualifiers: Syncope type: unspecified Encounter type: E Qualified Code(s): R55 - Syncope and collapse Subjective Date of service: 12/28/16 Principal diagnosis: chest pain Interval history: Seen in dialysis. BP 88/53 mm Hg.. However, she has been tolerating H.D. well. Not in distress.No compliants. Objective Vital Signs Temp Pulse Pulse Pulse Resp Resp BP 12/28/16 15:45 100 H 88/54 12/28/16 15:30 114 H 90/54 12/28/16 15:15 86 86/36 12/28/16 15:00 94 H 94/54 12/28/16 14:53 12/28/16 14:49 96.3 F L 114 H 18 110/56 12/28/16 13:32 112 H 20 12/28/16 13:21 107 H 20 12/28/16 11:42 18 12/28/16 10:00 65 04/01/17 09:45 97.5 F L 72 18 12/28/16 07:53 68 18 12/28/16 07:43 70 18 12/28/16 05:45 97.4 F L 63 20 12/28/16 01:09 97.7 F 67 18 12/27/16 22:00 63 20 12/27/16 21:12 97.6 F 68 20 12/27/16 20:20 69 20 12/27/16 20:09 67 20 12/27/16 17:10 98.4 F 106 H 20 112/49 12/27/16 17:00 47 L 102/56 12/27/16 16:45 107 H 84/52 12/27/16 16:30 122 H 93/48 BP Pulse Ox 12/28/16 15:45 12/28/16 15:30 12/28/16 15:15 12/28/16 15:00 12/28/16 14:53 98 12/28/16 14:49 12/28/16 13:32 12/28/16 13:21 12/28/16 11:42 12/28/16 10:00 12/28/16 09:45 117/58 12/28/16 07:53 12/28/16 07:43 98 12/28/16 05:45 125/57 98 12/28/16 01:09 121/58 94 12/27/16 22:00 12/27/16 21:12 99/53 100 12/27/16 20:20 12/27/16 20:09 96 12/27/16 17:10 12/27/16 17:00 12/27/16 16:45 12/27/16 16:30 - Physical Examination General: No Apparent Distress HEENT: Positive: Normocephaly, Mucus Membranes Moist Neck: Positive: neck supple, trachea midline Cardiac: Positive: Reg Rate and Rhythm Lungs: Positive: Normal Exam, clear to auscultation, Normal Breath Sounds Neuro: Positive: Grossly Intact Abdomen: Positive: Soft, Active Bowel Sounds Skin: Positive: Clear. Negative: Rash Musculoskeletal: Normal Range of Motion Extremities: Present: normal, edema (trace-bilateral lower legs) - Labs and Meds CBC 12/28/16 Range/Units 03:35 Hgb 9.9 L (10.1-14.3) gm/dl Hct 32.7 (30.3-42.9) % Plt Count 232 (140-440) K/mm3 Comprehensive Metabolic Panel 12/28/16 Range/Units 06:12 Sodium 138 (137-145) mmol/L Potassium 4.6 D (3.6-5.0) mmol/L Chloride 92.7 L (98-107) mmol/L Carbon Dioxide 25 (22-30) mmol/L BUN 44 H (7-17) mg/dL Creatinine 7.6 H (0.7-1.2) mg/dL Glucose 97 (65-100) mg/dL Calcium 7.8 L (8.4-10.2) mg/dL - Imaging and Cardiology EKG: report reviewed, image reviewed (ST segment elevation) Echo: report reviewed (08/2016: EF 55-60%, impaired relaxation, mild AR) - Telemetry EKG Rhythm: Sinus Rhythm - EKG Sinus rhythms and dysrhythmias: sinus rhythm Repolarization changes or abnormalities: acute pericarditis
--- NOTE | 2016-12-28 17:06 | Consultation ---
REASON FOR CONSULTATION: Management of end-stage renal disease. PERSON ASKING FOR CONSULTATION: Hospital Medicine. HISTORY OF PRESENT ILLNESS: The patient is a 81-year-old -[place] female, who has been admitted here with chest pain and shortness of breath. Pertinent information was also obtained from the patient's son, Kye as well as dialysis nurse at the [facility], where the patient was found not to be very compliant with fluid and oftentimes has excess fluid, doing very poor with her diet and lifestyle and oftentimes has 5-6 kilos of fluid with relatively low blood pressure, which is difficult to ultrafiltrate. The patient had been admitted with chest pain. As of currently undergoing workup, she does complain of mild shortness of breath, otherwise, no other complaints including fever or chills. PAST MEDICAL HISTORY: Significant for multiple medical problems including, 1. End-stage renal disease, currently on maintenance hemodialysis. 2. Hypertension. 3. Hyperlipidemia. 4. Gout. 5. Anemia and end-stage renal disease. 6. Secondary hyperparathyroidism. CURRENT ALLERGIES: EDI INHIBITORS, CHLOROQUINE, PENICILLIN, and VANCOMYCIN. SOCIAL HISTORY: The patient lives with her son. FAMILY HISTORY: Essentially noncontributory for renal-related disorder. PAST SURGICAL HISTORY: Significant for a fistula creation. REVIEW OF SYSTEMS: Positive for intermittent chest pain. She has been admitted. Otherwise, essentially negative for all other systems. PHYSICAL EXAMINATION: GENERAL: The patient is a 81-year-old -[place], lying comfortably in bed, does not appear in acute distress. VITAL SIGNS: Reviewed from this admission. HEENT: Normocephalic atraumatic, extraocular movements are intact. NECK: Supple without thyromegaly or JVD. CHEST: Essentially clear to auscultation. Nontender chest. HEART: Regular rate. S1, S2 heard. No S3, S4. ABDOMEN: Soft, nontender. No voluntary guarding, rebound, organomegaly, or masses. EXTREMITIES: Reveal the patient does have a functioning graft in her thigh, has good thrill and bruit and 1+ edema. ENDOCRINE: Thyroid not enlarged. PSYCHIATRIC: Pleasant. LABORATORIES AND X-RAYS: As of this admission, white cell count 9.8, hemoglobin 10.3, 32.2, platelets 193,000. Sodium 141, potassium 4.7, chloride 93, bicarbonate 32, BUN is 68 with creatinine of 10.2. ASSESSMENT AND PLAN: 1. End-stage renal disease. The patient is currently on maintenance hemodialysis. There is no acute emergent indication for renal replacement therapy today. Currently, the patient is undergoing workup for acute intermittent chest pain. 2. Evidence of mild fluid overload. The patient has been found to be noncompliant per dialysis clinic nurse. She needs to start the modifier her diet and eating habits. 3. Shortness of breath intermittent with history of chronic fluid load, we will try to ultrafiltrate dialyzed as tolerated. 4. Anemia and renal disease, to monitor erythropoietin and hemodialysis needed. 5. Secondary hyperparathyroidism, to follow. 6. Monitor basic labs as well as CBC. PLAN OF CARE: At this time, a very detailed discussion about the plan of care discussed with the dialysis nurse after dialyzed today and discussed with . the patient will consider hemodialysis today. At this time, I do not think any immediate indication for renal replacement therapy, given that she appears to be relatively unstable with EKG changes, which is somewhat worrisome. We will continue to follow and make recommendations from renal standpoint. Thank you for the consultation. JOB# [id number] SUSI/TEMI
--- NOTE | 2016-12-28 21:43 | Progress Note ---
Assessment and Plan Assessment and plan: 1. Acute pericarditis - started on NSAIDs by cardiology 2. Chest pain - due to #1 3. Elevated troponin - nonspecific in the setting of ESRD 4. Volume overload - HD with UF as tolerated 5. ESRD - HD on MWF 6. Anemia of ESRD - Epogen 7. DVT prophylaxis -heparin subcutaneous History Interval history: somnolent, but awakens to voice Hospitalist Physical - Constitutional Vitals: Temp Pulse Resp BP Pulse Ox 97.5 F L 121 H 20 97/54 100 12/28/16 21:19 12/28/16 21:19 12/28/16 21:19 12/28/16 21:19 12/28/16 21:19 General appearance: Present: no acute distress, obese Results - Labs CBC & Chem 7: 12/28/16 03:35 12/28/16 06:12 Labs: Laboratory Last Values WBC 7.8 K/mm3 (4.5-11.0) 12/27/16 04:00 RBC 3.71 M/mm3 (3.65-5.03) 12/27/16 04:00 Hgb 9.9 gm/dl (10.1-14.3) L 12/28/16 03:35 Hct 32.7 % (30.3-42.9) 12/28/16 03:35 MCV 91 fl (79-97) 12/27/16 04:00 MCH 28 pg (28-32) 12/27/16 04:00 MCHC 31 % (30-34) 12/27/16 04:00 RDW 19.7 % (13.2-15.2) H 12/27/16 04:00 Plt Count 232 K/mm3 (140-440) 12/28/16 03:35 Lymph % (Auto) 10.4 % (13.4-35.0) L 12/27/16 04:00 Shannon % (Auto) 10.9 % (0.0-7.3) H 12/27/16 04:00 Eos % (Auto) 0.3 % (0.0-4.3) 12/27/16 04:00 Baso % (Auto) 0.3 % (0.0-1.8) 12/27/16 04:00 Lymph # 0.8 K/mm3 (1.2-5.4) L 12/27/16 04:00 Shannon # 0.9 K/mm3 (0.0-0.8) H 12/27/16 04:00 Eos # 0.0 K/mm3 (0.0-0.4) 12/27/16 04:00 Baso # 0.0 K/mm3 (0.0-0.1) 12/27/16 04:00 Seg Neutrophils % 78.1 % (40.0-70.0) H 12/27/16 04:00 Seg Neutrophils # 6.1 K/mm3 (1.8-7.7) 12/27/16 04:00 PT 15.0 Sec. (12.2-14.9) H 12/26/16 10:17 INR 1.19 (0.87-1.13) H 12/26/16 10:17 APTT 27.2 Sec. (24.2-36.6) 12/26/16 10:17 Heparin Anti-Xa Level < 0.10 U.I./ml (0.3-0.7) L 12/27/16 05:06 Sodium 138 mmol/L (137-145) 12/28/16 06:12 Potassium 4.6 mmol/L (3.6-5.0) D 12/28/16 06:12 Chloride 92.7 mmol/L (98-107) L 12/28/16 06:12 Carbon Dioxide 25 mmol/L (22-30) 12/28/16 06:12 Anion Gap 25 mmol/L 12/28/16 06:12 BUN 44 mg/dL (7-17) H 12/28/16 06:12 Creatinine 7.6 mg/dL (0.7-1.2) H 12/28/16 06:12 Estimated GFR 6 ml/min 12/28/16 06:12 BUN/Creatinine Ratio 5.78 % 12/28/16 06:12 Glucose 97 mg/dL (65-100) 12/28/16 06:12 POC Glucose 98 (70-105) 12/27/16 09:52 Calcium 7.8 mg/dL (8.4-10.2) L 12/28/16 06:12 Magnesium 2.5 mg/dL (1.7-2.3) H 12/26/16 07:32 Total Bilirubin 0.3 mg/dL (0.1-1.2) 12/26/16 07:32 AST 19 units/L (5-40) 12/26/16 07:32 ALT 14 units/L (7-56) 12/26/16 07:32 Alkaline Phosphatase 204 units/L (35-129) H 12/26/16 07:32 Total Creatine Kinase 124 units/L (30-135) 12/26/16 17:12 CK-MB (CK-2) 1.6 ng/mL (0.0-4.0) 12/26/16 17:12 CK-MB (CK-2) Rel Index 1.2 (0-4) 12/26/16 17:12 Troponin T 0.065 ng/mL (0.00-0.029) H 12/26/16 17:12 Total Protein 7.8 g/dL (6.3-8.2) 12/26/16 07:32 Albumin 3.5 g/dL (3.9-5) L 12/26/16 07:32 Albumin/Globulin Ratio 0.8 % 12/26/16 07:32 Triglycerides 74 mg/dL (2-149) 12/26/16 07:32 Cholesterol 98 mg/dL (50-199) 12/26/16 07:32 LDL Cholesterol Direct 44 mg/dL (50-130) L 12/26/16 07:32 HDL Cholesterol 40 mg/dL (40-59) 12/26/16 07:32 Cholesterol/HDL Ratio 2.45 % 12/26/16 07:32
[2016-12-29] MEDS: DUONEB 0.5 MG-3 MG/3 ML SOLN IH SCH ×4 (01:02→19:19)
[2016-12-29] MEDS: HEPARIN SUB-Q SCH ×3 (06:13→21:19)
[2016-12-29] MEDS: REGLAN PO SCH ×3 (06:14→18:45)
[2016-12-29] MEDS: RENVELA PO SCH ×3 (08:47→18:45)
[2016-12-29] MEDS: INDOCIN PO SCH ×2 (08:47→21:18)
[2016-12-29] MEDS: PROTONIX PO SCH (10:54)
[2016-12-29] MEDS: NEURONTIN PO SCH (10:54)
[2016-12-29] MEDS: ZYLOPRIM PO SCH (10:54)
[2016-12-29] MEDS: ASPIRIN PO SCH (10:54)
[2016-12-29] MEDS: NEPTAZANE PO SCH ×2 (10:55→21:18)
[2016-12-29] MEDS: SENSIPAR PO SCH (10:55)
--- NOTE | 2016-12-29 11:37 | Progress Note ---
Assessment and Plan Impression: * End stage renal disease on HD * Acute pericarditis * Hypertension * Secondary hyperparathyroidism * Anemia secondary to CKD Plan: * Hemodialysis tomorrow - UF as tolerated; no heparin with dialysis * NSAIDs started by cardiology * TTE noted - minimal pericardial effusion; nml LVEF; mild pulm hypertension * Renal diet * Dose medications for renal function Subjective Date of service: 12/29/16 Principal diagnosis: chest pain Interval history: Patient is more alert this am. No acute events overnight. Objective - Vital Signs Vital signs: Vital Signs - 12hr 12/29/16 12/29/16 12/29/16 00:45 02:08 05:13 Temperature 97.4 F L 97.6 F Pulse Rate [ Anterior Bilateral Throughout] Pulse Rate [ 107 H 90 71 Left Radial] Respiratory 20 20 20 Rate Respiratory Rate [Anterior Bilateral Throughout] Blood Pressure 95/54 113/57 [Left Arm] O2 Sat by Pulse 97 100 Oximetry 12/29/16 12/29/16 12/29/16 07:20 07:30 10:00 Temperature Pulse Rate [ 90 92 H Anterior Bilateral Throughout] Pulse Rate [ Left Radial] Respiratory Rate Respiratory 18 18 Rate [Anterior Bilateral Throughout] Blood Pressure [Left Arm] O2 Sat by Pulse 100 Oximetry - General Appearance General appearance: well-developed, well-nourished EENT: ATNC Respiratory: Present: Decreased Breath Sounds Cardiology: S1S2 Gastrointestinal: normal, no tenderness, no distended Integumentary: no rash, warm and dry Musculoskeletal: other (no edemea) Psychiatric: cooperative - Lab 12/28/16 03:35 12/28/16 06:12 Most recent lab results Calcium 7.8 mg/dL (8.4-10.2) L 12/28/16 06:12 Magnesium 2.5 mg/dL (1.7-2.3) H 12/26/16 07:32
--- NOTE | 2016-12-29 16:54 | Progress Note ---
Assessment and Plan Will derease Indomethacin dose to 25 mg PO TID. - Patient Problems (1) Acute pericarditis Current Visit: Yes Status: Acute Qualifiers: Pericarditis type: P Infectious pericarditis etiology: I (2) ESRD needing dialysis Current Visit: Yes Status: Chronic (3) Elevated troponin Current Visit: Yes Status: Acute (4) Volume overload Current Visit: Yes Status: Acute Qualifiers: Hypervolemia type: other Qualified Code(s): E87.79 - Other fluid overload (5) Normal coronary arteries Current Visit: Yes Status: Chronic (6) Acute chest pain Current Visit: No Status: Acute (7) Acute on chronic systolic CHF (congestive heart failure) Current Visit: No Status: Acute (8) Diabetes Current Visit: No Status: Chronic Qualifiers: Diabetes mellitus type: type 1 Diabetes mellitus complication status: without complication Diabetes mellitus complication detail: D Diabetic retinopathy severity: D Proliferative retinopathy type: P Diabetes mellitus macular edema: D Diabetes mellitus risk officer insulin use: D Laterality: L Chronic kidney disease stage: C Qualified Code(s): E10.9 - Type 1 diabetes mellitus without complications (9) ESRD (end stage renal disease) Current Visit: No Status: Chronic (10) Pleural effusion, left Current Visit: No Status: Acute (11) Pneumonia Current Visit: No Status: Resolved Qualifiers: Pneumonia type: P Aspiration pneumonia type: A Laterality: L Lung location: L (12) Syncope Current Visit: No Status: Resolved Qualifiers: Syncope type: unspecified Encounter type: E Qualified Code(s): R55 - Syncope and collapse Subjective Date of service: 12/29/16 Principal diagnosis: chest pain Interval history: Chest pain - better. Not in distress.BP 90/53 mm Hg. Objective Vital Signs Temp Pulse Pulse Pulse Resp Resp BP 12/29/16 13:55 94 H 18 12/29/16 13:42 93 H 18 12/29/16 12:12 97.6 F 14 12/29/16 10:00 92 H 26 H 12/29/16 07:30 92 H 18 12/29/16 07:20 90 18 12/29/16 05:13 97.6 F 71 20 12/29/16 02:08 90 12/29/16 00:45 97.4 F L 107 H 20 12/28/16 21:19 97.5 F L 121 H 20 12/28/16 20:00 119 H 18 12/28/16 19:51 121 H 18 12/28/16 18:18 98.7 F 90 18 84/48 12/28/16 18:17 90 84/48 12/28/16 18:00 102 H 88/52 12/28/16 17:45 100 H 106/52 12/28/16 17:20 90 84/48 12/28/16 17:13 97.5 F L 16 12/28/16 17:07 92 H 118/50 BP Pulse Ox 12/29/16 13:55 12/29/16 13:42 12/29/16 12:12 90/53 2 L 12/29/16 10:00 94 12/29/16 07:30 12/29/16 07:20 12/29/16 05:13 113/57 100 12/29/16 02:08 12/29/16 00:45 95/54 97 12/28/16 21:19 97/54 100 12/28/16 20:00 12/28/16 19:51 100 12/28/16 18:18 12/28/16 18:17 12/28/16 18:00 12/28/16 17:45 12/28/16 17:20 12/28/16 17:13 117/58 99 12/28/16 17:07 - Physical Examination General: No Apparent Distress HEENT: Positive: Normocephaly, Mucus Membranes Moist Neck: Positive: neck supple, trachea midline Cardiac: Positive: Reg Rate and Rhythm Lungs: Positive: clear to auscultation, Normal Breath Sounds Neuro: Positive: Grossly Intact Abdomen: Positive: Soft, Active Bowel Sounds Skin: Positive: Clear. Negative: Rash Musculoskeletal: Normal Range of Motion Extremities: Present: normal. Absent: edema - Imaging and Cardiology EKG: report reviewed, image reviewed (ST segment elevation) Echo: report reviewed (08/2016: EF 55-60%, impaired relaxation, mild AR) - Telemetry EKG Rhythm: Sinus Rhythm - EKG Sinus rhythms and dysrhythmias: sinus rhythm Repolarization changes or abnormalities: acute pericarditis
--- NOTE | 2016-12-29 19:22 | Progress Note ---
Assessment and Plan Assessment and plan: 1. Acute pericarditis - started on NSAIDs by cardiology, dose adjusted 2. Chest pain - due to #1 3. Elevated troponin - nonspecific in the setting of ESRD 4. Volume overload - HD with UF as tolerated per nephrology 5. ESRD - HD on MWF 6. Anemia of ESRD - Epogen 7. DVT prophylaxis -heparin subcutaneous History Interval history: more awake today, feeling better Hospitalist Physical - Constitutional Vitals: Temp Pulse Resp BP Pulse Ox 97.9 F 66 14 102/56 97 12/29/16 17:42 12/29/16 17:42 12/29/16 17:42 12/29/16 17:42 12/29/16 17:42 General appearance: Present: no acute distress, obese - EENT Eyes: Present: PERRL, EOM intact. Absent: scleral icterus, conjunctival injection - Neck Neck: Present: supple, normal ROM. Absent: masses or JVD - Respiratory Respiratory effort: normal Respiratory: bilateral: CTA, negative: rhonchi, wheezing - Cardiovascular Rhythm: regular Heart Sounds: Present: S1 & S2. Absent: systolic murmur - Extremities Extremities: no ischemia - Abdominal General gastrointestinal: soft, non-tender, non-distended, normal bowel sounds - Neurologic Neurologic: CNII-XII intact, no focal deficits Results - Labs CBC & Chem 7: 12/28/16 03:35 12/28/16 06:12 Labs: Laboratory Last Values WBC 7.8 K/mm3 (4.5-11.0) 12/27/16 04:00 RBC 3.71 M/mm3 (3.65-5.03) 12/27/16 04:00 Hgb 9.9 gm/dl (10.1-14.3) L 12/28/16 03:35 Hct 32.7 % (30.3-42.9) 12/28/16 03:35 MCV 91 fl (79-97) 12/27/16 04:00 MCH 28 pg (28-32) 12/27/16 04:00 MCHC 31 % (30-34) 12/27/16 04:00 RDW 19.7 % (13.2-15.2) H 12/27/16 04:00 Plt Count 232 K/mm3 (140-440) 12/28/16 03:35 Lymph % (Auto) 10.4 % (13.4-35.0) L 12/27/16 04:00 Pike % (Auto) 10.9 % (0.0-7.3) H 12/27/16 04:00 Eos % (Auto) 0.3 % (0.0-4.3) 12/27/16 04:00 Baso % (Auto) 0.3 % (0.0-1.8) 12/27/16 04:00 Lymph # 0.8 K/mm3 (1.2-5.4) L 12/27/16 04:00 Pike # 0.9 K/mm3 (0.0-0.8) H 12/27/16 04:00 Eos # 0.0 K/mm3 (0.0-0.4) 12/27/16 04:00 Baso # 0.0 K/mm3 (0.0-0.1) 12/27/16 04:00 Seg Neutrophils % 78.1 % (40.0-70.0) H 12/27/16 04:00 Seg Neutrophils # 6.1 K/mm3 (1.8-7.7) 12/27/16 04:00 PT 15.0 Sec. (12.2-14.9) H 12/26/16 10:17 INR 1.19 (0.87-1.13) H 12/26/16 10:17 APTT 27.2 Sec. (24.2-36.6) 12/26/16 10:17 Heparin Anti-Xa Level < 0.10 U.I./ml (0.3-0.7) L 12/27/16 05:06 Sodium 138 mmol/L (137-145) 12/28/16 06:12 Potassium 4.6 mmol/L (3.6-5.0) D 12/28/16 06:12 Chloride 92.7 mmol/L (98-107) L 12/28/16 06:12 Carbon Dioxide 25 mmol/L (22-30) 12/28/16 06:12 Anion Gap 25 mmol/L 12/28/16 06:12 BUN 44 mg/dL (7-17) H 12/28/16 06:12 Creatinine 7.6 mg/dL (0.7-1.2) H 12/28/16 06:12 Estimated GFR 6 ml/min 12/28/16 06:12 BUN/Creatinine Ratio 5.78 % 12/28/16 06:12 Glucose 97 mg/dL (65-100) 12/28/16 06:12 POC Glucose 229 (70-105) H 12/29/16 11:46 Calcium 7.8 mg/dL (8.4-10.2) L 12/28/16 06:12 Magnesium 2.5 mg/dL (1.7-2.3) H 12/26/16 07:32 Total Bilirubin 0.3 mg/dL (0.1-1.2) 12/26/16 07:32 AST 19 units/L (5-40) 12/26/16 07:32 ALT 14 units/L (7-56) 12/26/16 07:32 Alkaline Phosphatase 204 units/L (35-129) H 12/26/16 07:32 Total Creatine Kinase 124 units/L (30-135) 12/26/16 17:12 CK-MB (CK-2) 1.6 ng/mL (0.0-4.0) 12/26/16 17:12 CK-MB (CK-2) Rel Index 1.2 (0-4) 12/26/16 17:12 Troponin T 0.065 ng/mL (0.00-0.029) H 12/26/16 17:12 Total Protein 7.8 g/dL (6.3-8.2) 12/26/16 07:32 Albumin 3.5 g/dL (3.9-5) L 12/26/16 07:32 Albumin/Globulin Ratio 0.8 % 12/26/16 07:32 Triglycerides 74 mg/dL (2-149) 12/26/16 07:32 Cholesterol 98 mg/dL (50-199) 12/26/16 07:32 LDL Cholesterol Direct 44 mg/dL (50-130) L 12/26/16 07:32 HDL Cholesterol 40 mg/dL (40-59) 12/26/16 07:32 Cholesterol/HDL Ratio 2.45 % 12/26/16 07:32
[2016-12-30] MEDS: REGLAN PO SCH ×2 (03:28→16:43)
[2016-12-30] MEDS: INDOCIN PO SCH ×3 (05:56→23:09)
[2016-12-30] MEDS: HEPARIN SUB-Q SCH ×3 (05:57→23:09)
[2016-12-30 06:28] LABS: Hematocrit 33.5 % (30.3-42.9); Hemoglobin 10.2 gm/dl (10.1-14.3)
[2016-12-30 06:37] LABS: BUN/Creatinine Ratio 5.71; Chloride 96.3 mmol/L (98-107); Potassium 3.9 mmol/L (3.6-5.0)
[2016-12-30] MEDS: DUONEB 0.5 MG-3 MG/3 ML SOLN IH SCH ×3 (07:39→19:11)
[2016-12-30] MEDS ORDERED: NACL 0.9% 100 ML IV PRN (09:02)
--- NOTE | 2016-12-30 09:03 | Progress Note ---
Assessment and Plan Impression: * End stage renal disease on HD * Acute pericarditis * Hypertension * Secondary hyperparathyroidism * Anemia secondary to CKD Plan: * Hemodialysis today - UF as tolerated; no heparin with dialysis * NSAIDs started by cardiology * TTE noted - minimal pericardial effusion; nml LVEF; mild pulm hypertension * Renal diet * Dose medications for renal function Subjective Date of service: 12/30/16 Principal diagnosis: chest pain Interval history: No acute events overnight. Objective - Vital Signs Vital signs: Vital Signs - 12hr 12/30/16 12/30/16 12/30/16 00:20 04:25 07:15 Temperature 98.2 F 98.0 F Pulse Rate [ 80 Anterior Bilateral Throughout] Pulse Rate [ 82 85 Right Radial] Respiratory 22 24 Rate Respiratory 18 Rate [Anterior Bilateral Throughout] Blood Pressure 134/60 109/53 [Left Arm] O2 Sat by Pulse 100 93 Oximetry 12/30/16 12/30/16 07:25 08:32 Temperature Pulse Rate [ 87 Anterior Bilateral Throughout] Pulse Rate [ Right Radial] Respiratory Rate Respiratory 18 Rate [Anterior Bilateral Throughout] Blood Pressure [Left Arm] O2 Sat by Pulse 100 Oximetry - General Appearance General appearance: well-developed, well-nourished EENT: ATNC Respiratory: Present: Clear to Ascultation (anteriorly), Decreased Breath Sounds (at bases) Cardiology: other (distant heart sounds; unable to appreciate pericardial friction rub) Gastrointestinal: no tenderness, no distended, obese Integumentary: no rash, warm and dry Musculoskeletal: other (no edema) Psychiatric: cooperative - Lab 12/30/16 05:01 12/30/16 05:01 Most recent lab results Calcium 8.0 mg/dL (8.4-10.2) L 12/30/16 05:01 Magnesium 2.5 mg/dL (1.7-2.3) H 12/26/16 07:32
--- NOTE | 2016-12-30 11:28 | Progress Note ---
Assessment and Plan Acute pericarditis continue Indomethacin 25 mg PO TID x 10 days Elevated troponin-->likely due to ESRD [facility] 12/09/16: normal coronaries Hyperkalemia-->resolved dialysis per nephrology Acute on chronic diastolic heart failure Echo 11/2016: EF 55-60%, impaired relaxation, mild , mild-moderate AR ESRD on HD Anemia Stable cardiac status. Continue current management. Follow up in the office in 1 -2 weeks. The patient has been seen in conjunction with Dr. Banks who agrees with the assessment and plan of care. - Patient Problems (1) Acute pericarditis Current Visit: Yes Status: Acute Qualifiers: Pericarditis type: P Infectious pericarditis etiology: I (2) ST segment elevation present on electrocardiogram Current Visit: Yes Status: Acute (3) Elevated troponin Current Visit: Yes Status: Acute (4) Chest pain Current Visit: No Status: Acute Qualifiers: Chest pain type: unspecified Qualified Code(s): R07.9 - Chest pain, unspecified (5) Normal coronary arteries Current Visit: Yes Status: Chronic (6) End stage renal disease on dialysis Current Visit: No Status: Chronic Subjective Date of service: 12/30/16 Principal diagnosis: chest pain Interval history: The patient is seen and examined on dialysis. No new complaints. Sinus rhythm on the monitor. Objective Last Vital Signs Temp 97.8 F 12/30/16 09:55 Pulse 113 H 12/30/16 11:00 Resp 18 12/30/16 09:55 BP 94/54 12/30/16 11:00 Pulse Ox 100 12/30/16 09:19 - Physical Examination General: No Apparent Distress HEENT: Positive: Normocephaly, Mucus Membranes Moist Neck: Positive: neck supple, trachea midline Cardiac: Positive: Reg Rate and Rhythm, S1/S2 Lungs: Positive: clear to auscultation Neuro: Positive: Grossly Intact Abdomen: Positive: Soft, Active Bowel Sounds Skin: Positive: Clear. Negative: Rash Musculoskeletal: Normal Range of Motion Extremities: Present: normal. Absent: edema - Labs and Meds CBC 12/30/16 Range/Units 05:01 Hgb 10.2 (10.1-14.3) gm/dl Hct 33.5 (30.3-42.9) % Plt Count 255 (140-440) K/mm3 Comprehensive Metabolic Panel 12/30/16 Range/Units 05:01 Sodium 142 (137-145) mmol/L Potassium 3.9 (3.6-5.0) mmol/L Chloride 96.3 L (98-107) mmol/L Carbon Dioxide 26 (22-30) mmol/L BUN 48 H (7-17) mg/dL Creatinine 8.4 H (0.7-1.2) mg/dL Glucose 98 (65-100) mg/dL Calcium 8.0 L (8.4-10.2) mg/dL - Imaging and Cardiology EKG: report reviewed, image reviewed (ST segment elevation) Echo: report reviewed (08/2016: EF 55-60%, impaired relaxation, mild-moderate AR , mild ) - Telemetry EKG Rhythm: Sinus Rhythm - EKG Sinus rhythms and dysrhythmias: sinus rhythm Repolarization changes or abnormalities: acute pericarditis
[2016-12-30] MEDS ORDERED: NACL 0.9 (PRIMING MACHINE ONLY DIALYSIS) MC ONE (11:53)
--- NOTE | 2016-12-30 13:17 | Progress Note ---
Assessment and Plan Assessment and plan: Maltese language line used and also spoke with her son Rachel Acute pericarditis continue Indomethacin 25 mg PO TID Elevated troponin-->likely due to ESRD [facility] 12/09/16: normal coronaries Hyperkalemia-->resolved dialysis per nephrology Acute on chronic diastolic heart failure Echo 11/2016: EF 55-60%, impaired relaxation, mild , mild-moderate AR ESRD on HD Anemia: epo dvt prophylaxis: sq heparin Cognitive impairment most likely dementia, has been going on for 3 months per son. She saw Dr. Maxwell as outpatient who prescribed unspecified medication but it has not helped. Hypotension, not on any medication now, continue to monitor and adjust volume during HD Disposition: Back to [facility] once o2 setup and bp stable. History Interval history: Patient seen and examined. Follow up on shortness breath which is still present. Overnight uneventful. No cp, n/v or severe headaches. Imaging, old records, testing, labs, nursing notes reviewed. Plan discussed with patient. Hospitalist Physical - Physical exam Narrative exam: GEN: Chronically debilitated obese BMI 36.2 NAD, AWAKE, ALERT, ORIENTATED 2, missed year, very poor memory recall CVS: RRR, NORMAL S1S2 LUNGS/CHEST: Bibasilar crackles NORMAL CHEST EXPANSION B, GOOD AIR ENTRY B ABD: SOFT NTND, GBS, NO REBOUND OR GUARDING MSK: FROM X 4 EXTREMITIES NEURO: CN 2-12 GROSSLY INTACT, NO new FOCAL DEFICITS PSY: CALM - Constitutional Vitals: Temp Pulse Resp BP Pulse Ox 97.8 F 98 H 18 90/38 100 12/30/16 09:55 12/30/16 13:00 12/30/16 09:55 12/30/16 13:00 12/30/16 09:19 General appearance: Present: no acute distress, obese Results - Labs CBC & Chem 7: 12/30/16 05:01 12/30/16 05:01 Labs: Laboratory Last Values WBC 7.8 K/mm3 (4.5-11.0) 12/27/16 04:00 RBC 3.71 M/mm3 (3.65-5.03) 12/27/16 04:00 Hgb 10.2 gm/dl (10.1-14.3) 12/30/16 05:01 Hct 33.5 % (30.3-42.9) 12/30/16 05:01 MCV 91 fl (79-97) 12/27/16 04:00 MCH 28 pg (28-32) 12/27/16 04:00 MCHC 31 % (30-34) 12/27/16 04:00 RDW 19.7 % (13.2-15.2) H 12/27/16 04:00 Plt Count 255 K/mm3 (140-440) 12/30/16 05:01 Lymph % (Auto) 10.4 % (13.4-35.0) L 12/27/16 04:00 [place] % (Auto) 10.9 % (0.0-7.3) H 12/27/16 04:00 Eos % (Auto) 0.3 % (0.0-4.3) 12/27/16 04:00 Baso % (Auto) 0.3 % (0.0-1.8) 12/27/16 04:00 Lymph # 0.8 K/mm3 (1.2-5.4) L 12/27/16 04:00 [place] # 0.9 K/mm3 (0.0-0.8) H 12/27/16 04:00 Eos # 0.0 K/mm3 (0.0-0.4) 12/27/16 04:00 Baso # 0.0 K/mm3 (0.0-0.1) 12/27/16 04:00 Seg Neutrophils % 78.1 % (40.0-70.0) H 12/27/16 04:00 Seg Neutrophils # 6.1 K/mm3 (1.8-7.7) 12/27/16 04:00 PT 15.0 Sec. (12.2-14.9) H 12/26/16 10:17 INR 1.19 (0.87-1.13) H 12/26/16 10:17 APTT 27.2 Sec. (24.2-36.6) 12/26/16 10:17 Heparin Anti-Xa Level < 0.10 U.I./ml (0.3-0.7) L 12/27/16 05:06 Sodium 142 mmol/L (137-145) 12/30/16 05:01 Potassium 3.9 mmol/L (3.6-5.0) 12/30/16 05:01 Chloride 96.3 mmol/L (98-107) L 12/30/16 05:01 Carbon Dioxide 26 mmol/L (22-30) 12/30/16 05:01 Anion Gap 24 mmol/L 12/30/16 05:01 BUN 48 mg/dL (7-17) H 12/30/16 05:01 Creatinine 8.4 mg/dL (0.7-1.2) H 12/30/16 05:01 Estimated GFR 6 ml/min 12/30/16 05:01 BUN/Creatinine Ratio 5.71 % 12/30/16 05:01 Glucose 98 mg/dL (65-100) 12/30/16 05:01 POC Glucose 229 (70-105) H 12/29/16 11:46 Calcium 8.0 mg/dL (8.4-10.2) L 12/30/16 05:01 Magnesium 2.5 mg/dL (1.7-2.3) H 12/26/16 07:32 Total Bilirubin 0.3 mg/dL (0.1-1.2) 12/26/16 07:32 AST 19 units/L (5-40) 12/26/16 07:32 ALT 14 units/L (7-56) 12/26/16 07:32 Alkaline Phosphatase 204 units/L (35-129) H 12/26/16 07:32 Total Creatine Kinase 124 units/L (30-135) 12/26/16 17:12 CK-MB (CK-2) 1.6 ng/mL (0.0-4.0) 12/26/16 17:12 CK-MB (CK-2) Rel Index 1.2 (0-4) 12/26/16 17:12 Troponin T 0.065 ng/mL (0.00-0.029) H 12/26/16 17:12 Total Protein 7.8 g/dL (6.3-8.2) 12/26/16 07:32 Albumin 3.5 g/dL (3.9-5) L 12/26/16 07:32 Albumin/Globulin Ratio 0.8 % 12/26/16 07:32 Triglycerides 74 mg/dL (2-149) 12/26/16 07:32 Cholesterol 98 mg/dL (50-199) 12/26/16 07:32 LDL Cholesterol Direct 44 mg/dL (50-130) L 12/26/16 07:32 HDL Cholesterol 40 mg/dL (40-59) 12/26/16 07:32 Cholesterol/HDL Ratio 2.45 % 12/26/16 07:32
[2016-12-30] MEDS: NEURONTIN PO SCH (16:42)
[2016-12-30] MEDS: SENSIPAR PO SCH (16:43)
[2016-12-30] MEDS: RENVELA PO SCH ×2 (16:43→20:40)
[2016-12-30] MEDS: ASPIRIN PO SCH (16:44)
[2016-12-30] MEDS: PROTONIX PO SCH (16:44)
[2016-12-30] MEDS: ZYLOPRIM PO SCH (16:44)
[2016-12-30] MEDS: NEPTAZANE PO SCH ×2 (20:40→23:09)
[2016-12-31] MEDS: REGLAN PO SCH ×4 (03:00→17:01)
[2016-12-31] MEDS: RENVELA PO SCH ×4 (05:24→17:00)
[2016-12-31] MEDS: INDOCIN PO SCH ×3 (06:25→23:03)
[2016-12-31] MEDS: HEPARIN SUB-Q SCH ×3 (06:26→23:03)
[2016-12-31 08:09] LABS: Mean Corpuscular HGB Conc 30 % (30-34); Mean Corpuscular Hemoglobin 27 pg (28-32); Mean Corpuscular Volume 91 fl (79-97); Platelet Count 249 K/mm3 (140-440); Red Blood Count 3.78 M/mm3 (3.65-5.03); Red Cell Distribution Width 19.5 % (13.2-15.2); White Blood Count 7.1 K/mm3 (4.5-11.0)
[2016-12-31 08:16] LABS: Hematocrit 34.3 % (30.3-42.9); Hemoglobin 10.3 gm/dl (10.1-14.3)
[2016-12-31 08:25] LABS: BUN/Creatinine Ratio 5.31; Calcium 8.1 mg/dL (8.4-10.2); Chloride 92.1 mmol/L (98-107); Potassium 3.6 mmol/L (3.6-5.0)
[2016-12-31] MEDS: DUONEB 0.5 MG-3 MG/3 ML SOLN IH SCH ×3 (08:40→20:11)
--- NOTE | 2016-12-31 09:01 | Progress Note ---
Assessment and Plan Impression: * End stage renal disease on HD * Acute pericarditis * Hypertension * Secondary hyperparathyroidism * Anemia secondary to CKD Plan: * Hemodialysis today to resume outpatient TTS schedul- UF as tolerated; no heparin with dialysis * NSAIDs started by cardiology * TTE noted - minimal pericardial effusion; nml LVEF; mild pulm hypertension * Renal diet * Dose medications for renal function Subjective Date of service: 12/31/16 Principal diagnosis: chest pain Interval history: Patient without acute event overnight. Objective - Vital Signs Vital signs: Vital Signs - 12hr 12/31/16 12/31/16 12/31/16 00:15 01:41 04:20 Temperature 97.8 F 97.4 F L Pulse Rate [ Anterior Bilateral Throughout] Pulse Rate [ 76 78 Right Radial] Respiratory 20 20 20 Rate Respiratory Rate [Anterior Bilateral Throughout] Blood Pressure 98/54 103/52 [Left Arm] O2 Sat by Pulse 99 90 Oximetry 12/31/16 08:41 Temperature Pulse Rate [ 116 H Anterior Bilateral Throughout] Pulse Rate [ Right Radial] Respiratory Rate Respiratory 18 Rate [Anterior Bilateral Throughout] Blood Pressure [Left Arm] O2 Sat by Pulse 95 Oximetry - General Appearance General appearance: well-developed, well-nourished EENT: ATNC Respiratory: Present: Clear to Ascultation Cardiology: regular, S1S2, other (distant heart sounds; unable to appreciate rub ) Gastrointestinal: normal, obese Integumentary: no rash Musculoskeletal: other (trace edema) Psychiatric: cooperative - Lab 12/31/16 06:33 12/31/16 06:33 Most recent lab results Calcium 8.1 mg/dL (8.4-10.2) L 12/31/16 06:33 Magnesium 2.5 mg/dL (1.7-2.3) H 12/26/16 07:32
[2016-12-31] MEDS: ASPIRIN PO SCH (09:30)
[2016-12-31] MEDS: PROTONIX PO SCH (09:30)
[2016-12-31] MEDS: NEURONTIN PO SCH (09:30)
[2016-12-31] MEDS: NEPTAZANE PO SCH ×2 (09:30→23:03)
[2016-12-31] MEDS: SENSIPAR PO SCH (09:30)
[2016-12-31] MEDS: ZYLOPRIM PO SCH (09:30)
[2016-12-31] MEDS ORDERED: NACL 0.9% 100 ML IV PRN (10:30)
[2016-12-31] MEDS ORDERED: NACL 0.9 (PRIMING MACHINE ONLY DIALYSIS) MC ONE (17:03)
--- NOTE | 2016-12-31 17:37 | Progress Note ---
Assessment and Plan Assessment and Plan 1. Acute pericarditis: On NSAIDs. TTE showed minimal pericardial effusion, LVEF of 55-60%, mild pulmonary hypertension. 2. ESRD on hemodialysis: Hemodialysis today, press set up person following patient. 3. HTN: Hold BP meds because of hypotension. 4. Anemia: secondary to CKD. 5. Elevated troponin: Likely due to ESRD. Had catherization on 12/09/16 that showed normal coronaries. 6. DVT prophylaxis with heparin. Subjective Date of service: 12/31/16 Principal diagnosis: chest pain Interval history: Progressive shortness of breath. Received in breathing treatments. Objective - Constitutional Vitals: Vital Signs - 12hr 12/31/16 12/31/16 12/31/16 08:41 09:37 09:51 Temperature 97.9 F Pulse Rate Pulse Rate [ 116 H 114 H Anterior Bilateral Throughout] Pulse Rate [ 67 Left Radial] Pulse Rate [ Right Radial] Respiratory 18 Rate Respiratory 18 18 Rate [Anterior Bilateral Throughout] Blood Pressure Blood Pressure 95/52 [Left Arm] O2 Sat by Pulse 95 89 Oximetry 12/31/16 12/31/16 12/31/16 10:00 14:21 14:35 Temperature Pulse Rate 78 Pulse Rate [ 116 H 112 H Anterior Bilateral Throughout] Pulse Rate [ Left Radial] Pulse Rate [ 132 H Right Radial] Respiratory 24 Rate Respiratory 16 16 Rate [Anterior Bilateral Throughout] Blood Pressure Blood Pressure [Left Arm] O2 Sat by Pulse 96 Oximetry 12/31/16 12/31/16 12/31/16 15:42 15:45 16:00 Temperature 98.2 F Pulse Rate 82 82 76 Pulse Rate [ Anterior Bilateral Throughout] Pulse Rate [ Left Radial] Pulse Rate [ Right Radial] Respiratory 18 Rate Respiratory Rate [Anterior Bilateral Throughout] Blood Pressure 102/54 98/50 96/44 Blood Pressure [Left Arm] O2 Sat by Pulse Oximetry 12/31/16 12/31/16 12/31/16 16:15 16:30 16:45 Temperature Pulse Rate 94 H 82 84 Pulse Rate [ Anterior Bilateral Throughout] Pulse Rate [ Left Radial] Pulse Rate [ Right Radial] Respiratory Rate Respiratory Rate [Anterior Bilateral Throughout] Blood Pressure 112/46 118/54 114/54 Blood Pressure [Left Arm] O2 Sat by Pulse Oximetry General appearance: Present: no acute distress, well-nourished - EENT Eyes: PERRL, EOM intact ENT: hearing intact, clear oral mucosa - Neck Neck: supple, normal ROM - Respiratory Respiratory effort: normal Respiratory: bilateral: diminished - Cardiovascular Rhythm: regular Heart Sounds: Present: S1 & S2. Absent: gallop, rub Extremities: pulses intact, No edema, normal color, Full ROM - Gastrointestinal General gastrointestinal: Present: soft, non-tender, non-distended, normal bowel sounds - Integumentary Integumentary: clear, warm, dry - Musculoskeletal Musculoskeletal: 1, strength equal bilaterally - Neurologic Neurologic: moves all extremities - Psychiatric Psychiatric: memory intact, appropriate mood/affect, intact judgment & insight - Labs CBC & Chem 7: 12/31/16 06:33 12/31/16 06:33 Labs: Abnormal lab results 12/30/16 12/31/16 12/31/16 Range/Units 21:47 06:33 06:33 MCH 27 L (28-32) pg RDW 19.5 H (13.2-15.2) % Sodium 135 L (137-145) mmol/L Chloride 92.1 L (98-107) mmol/L BUN 34 H (7-17) mg/dL Creatinine 6.4 H (0.7-1.2) mg/dL POC Glucose 160 H (70-105) Calcium 8.1 L (8.4-10.2) mg/dL
[2017-01-01] MEDS: REGLAN PO SCH ×2 (02:00→11:52)
[2017-01-01 05:30] LABS: Hematocrit 33.1 % (30.3-42.9); Hemoglobin 10.1 gm/dl (10.1-14.3)
[2017-01-01] MEDS: HEPARIN SUB-Q SCH ×2 (06:31→14:49)
[2017-01-01] MEDS: INDOCIN PO SCH ×2 (06:32→14:49)
[2017-01-01] MEDS: DUONEB 0.5 MG-3 MG/3 ML SOLN IH SCH ×2 (07:24→13:58)
[2017-01-01] MEDS: RENVELA PO SCH ×2 (08:00→11:51)
--- NOTE | 2017-01-01 11:13 | Progress Note ---
Assessment and Plan Impression: * End stage renal disease on HD * Acute pericarditis * Hypertension * Secondary hyperparathyroidism * Anemia secondary to CKD Plan: * Hemodialysis TTS per outpatient schedule - UF as tolerated; no heparin with dialysis * NSAIDs started by cardiology * TTE noted - minimal pericardial effusion; nml LVEF; mild pulm hypertension * Renal diet * Dose medications for renal function Subjective Date of service: 01/01/17 Principal diagnosis: chest pain Interval history: No acute events overnight. Objective - Vital Signs Vital signs: Vital Signs - 12hr 01/01/17 01/01/17 01/01/17 00:50 01:00 05:15 Temperature 97.8 F 98.0 F Pulse Rate Pulse Rate [ Anterior Bilateral Throughout] Pulse Rate [ Left Radial] Pulse Rate [ 91 H 85 Right Radial] Respiratory 22 20 20 Rate Respiratory Rate [Anterior Bilateral Throughout] Blood Pressure 112/59 100/58 [Left Arm] O2 Sat by Pulse 99 100 Oximetry 01/01/17 01/01/17 01/01/17 07:26 07:41 08:34 Temperature Pulse Rate Pulse Rate [ 84 86 Anterior Bilateral Throughout] Pulse Rate [ Left Radial] Pulse Rate [ Right Radial] Respiratory Rate Respiratory 16 16 Rate [Anterior Bilateral Throughout] Blood Pressure [Left Arm] O2 Sat by Pulse 98 96 Oximetry 01/01/17 01/01/17 08:45 09:44 Temperature 98.4 F Pulse Rate 74 Pulse Rate [ Anterior Bilateral Throughout] Pulse Rate [ 91 H Left Radial] Pulse Rate [ Right Radial] Respiratory 18 Rate Respiratory Rate [Anterior Bilateral Throughout] Blood Pressure 110/70 [Left Arm] O2 Sat by Pulse 94 Oximetry - General Appearance General appearance: well-developed, well-nourished EENT: ATNC Respiratory: Present: Decreased Breath Sounds Cardiology: other (distant heart sounds; cannot appreciate rub) Gastrointestinal: no tenderness, no distended, obese Integumentary: no rash Musculoskeletal: other (no edema) Psychiatric: cooperative - Lab 01/01/17 04:36 12/31/16 06:33 Most recent lab results Calcium 8.1 mg/dL (8.4-10.2) L 12/31/16 06:33 Magnesium 2.5 mg/dL (1.7-2.3) H 12/26/16 07:32
[2017-01-01] MEDS: ASPIRIN PO SCH (11:51)
[2017-01-01] MEDS: PROTONIX PO SCH (11:51)
[2017-01-01] MEDS: ZYLOPRIM PO SCH (11:51)
[2017-01-01] MEDS: NEURONTIN PO SCH (11:51)
[2017-01-01] MEDS: SENSIPAR PO SCH (11:52)
[2017-01-01] MEDS: NEPTAZANE PO SCH (11:52)
--- NOTE | 2017-01-01 11:53 | Discharge Summary ---
Providers - Providers Date of Admission: 12/26/16 08:50 Date of discharge: 01/01/17 Attending physician: JERILYN GAINES 12/30/16 13:09 Physical Therapy Evaluation and Treat [CONS] Routine Comment: Reason For Exam: ambulatory training Primary care physician: NREMT Hospitalization Condition: Stable Pertinent studies: CXR showed mild CHF. Echo showed LVEF of 55-60%, abnormal left ventricular diastolic filling, mild pulmonary hypertension. Procedures: None Disposition: DC/TX SNF W [facility] CERT Core Measure Documentation - Palliative Care Palliative Care/ Comfort Measures: Not Applicable - Core Measures Any of the following diagnoses?: heart failure - Heart Failure Discharge Requirements EDI/ARB for LVSD if EF <40%: No Reason for no EDI/ARB: Renal impairment Beta elizabeth at discharge: Yes Exam - Constitutional Vitals: Temp Pulse Resp BP Pulse Ox 98.4 F 74 18 110/70 94 01/01/17 08:45 01/01/17 09:44 01/01/17 08:45 01/01/17 08:45 01/01/17 08:45 General appearance: Present: no acute distress, well-nourished - EENT Eyes: Present: PERRL ENT: hearing intact, clear oral mucosa - Neck Neck: Present: supple, normal ROM - Respiratory Respiratory effort: normal Respiratory: bilateral: CTA - Cardiovascular Heart Sounds: Present: S1 & S2. Absent: rub, click - Extremities Extremities: pulses symmetrical, No edema Peripheral Pulses: within normal limits - Abdominal General gastrointestinal: Present: soft, non-tender, non-distended, normal bowel sounds Female genitourinary: Present: normal - Integumentary Integumentary: Present: clear, warm, dry - Musculoskeletal Musculoskeletal: gait normal, strength equal bilaterally - Psychiatric Psychiatric: appropriate mood/affect, intact judgment & insight - Neurologic Neurologic: CNII-XII intact, moves all extremities Plan Activity: advance as tolerated Diet: low fat, low cholesterol, low salt, renal Special Instructions: record daily BP diary Follow up with: JAYA HIGUERA MD [Staff Physician] - 7 Days CLARA SINGH MD [Staff Physician] - 7 Days PRIMARY CARE, [Primary Care Provider] - 3 Days Prescriptions: amLODIPine [Norvasc] 10 mg PO DAILY #30 tablet Metoprolol [Lopressor TAB] 100 mg PO DAILY #30 tablet Rosuvastatin (Nf) [Crestor] 20 mg PO QHS #30 tablet
[2017-01-01 13:43] VITALS: BP 97/54
[2017-01-02] MEDS ORDERED: VITAMIN D2 PO SCH (10:00)
== END 2017-01-01 15:34 | DRG 291 ==
LOC: ED 07:24 → 4A 08:50
PROVIDERS: ADMIT Internal Medicine; ATTEND Family Medicine
PROC: 5A1D60Z (ICD-10-PCS; principal; 2016-12-27)
DX: I13.2 Hypertensive heart and chronic kidney disease with heart failure and with stage 5 chronic kidney disease, or end stage renal disease (principal); I50.33 Acute on chronic diastolic (congestive) heart failure; N18.6 End stage renal disease; J96.21 Acute and chronic respiratory failure with hypoxia; I30.9 Acute pericarditis, unspecified; I95.9 Hypotension, unspecified; E66.01 Morbid (severe) obesity due to excess calories; E11.22 Type 2 diabetes mellitus with diabetic chronic kidney disease; M10.9 Gout, unspecified; H40.9 Unspecified glaucoma; I25.10 Atherosclerotic heart disease of native coronary artery without angina pectoris; E78.5 Hyperlipidemia, unspecified; D63.1 Anemia in chronic kidney disease; E87.5 Hyperkalemia; Z88.8 Allergy status to other drugs, medicaments and biological substances; Z88.0 Allergy status to penicillin; Z88.1 Allergy status to other antibiotic agents; Z79.899 Other long term (current) drug therapy; Z68.32 Body mass index [BMI] 32.0-32.9, adult; Z91.14 Patient's other noncompliance with medication regimen
CPT/HCPCS: 36415; 71010; 80048; 80053; 80061; 82550; 82553; 82962; 83735; 84484; 85014; 85018; 85025; 85027; 85049; 85520; 85610; 85730; 93005; 93010; 93306; 94640; 94760; 99285; A9270-GY; G8978-GP; G8979-GP; J1644; J1815; J2405; J7030

== ENCOUNTER 2017-01-01 16:45 | Emergency (ER) | payer MEDICARE ==
--- NOTE | 2017-01-01 17:07 | Emergency Department Report ---
HPI - General Chief Complaint: Medical Clearance Time Seen by Provider: 01/01/17 16:54 - HPI HPI: This is a 81-year-old female who presents to the emergency department from her ECF via EMS with the need for a blood pressure check and asking for further evaluation. The patient was discharged from [facility] this afternoon at about 3 PM, was brought to her ECF who found her to have a systolic in the 90s, and said that this was too low and sent her back for further evaluation. The patient recently spent 5-6 days admitted to [facility] for evaluation of some chest pain and had multiple consultations and was deemed safe for discharge home which occurred this afternoon. There were no complaints of any further chest pain, shortness of breath or any other physical complaints other than the findings on the BP monitor. Patient has a past medical history of end-stage renal disease on maintenance hemodialysis, diastolic heart failure with ejection fraction of 55-60% on her last echo. Patient has had a cardiac catheterization within the last few months. There is a language barrier as the patient only speaks Telugu. ED Past Medical Hx - Past Medical History Previous Medical History?: Yes Hx Hypertension: Yes Hx Heart Attack/AMI: No Hx Congestive Heart Failure: Yes Hx Diabetes: Yes Hx Deep Vein Thrombosis: No Hx Renal Disease: Yes (ESRD, dialysis , , Fri) Additional medical history: gout, glaucoma, cataracts - Surgical History Past Surgical History?: Yes Hx Coronary Stent: No Hx Pacemaker: No Hx Internal Defibrillator: No Additional Surgical History: fistula to left upper thigh - Social History Smoking Status: Never Smoker Substance Use Type: None - Medications Home Medications: Home Medications Medication Instructions Recorded Confirmed Last Taken Type Allopurinol [Zyloprim] 100 mg PO QDAY 12/13/14 12/26/16 11/14/15 History Cinacalcet HCl [Sensipar] 90 mg PO DAILY 12/13/14 12/26/16 11/14/15 History Gabapentin 300 mg PO QDAY 12/13/14 12/26/16 11/14/15 History Sevelamer Carbonate [Renvela] 800 mg PO TIDWM 12/13/14 12/26/16 11/14/15 History Pantoprazole [Protonix TAB] 40 mg PO QDAY #30 tablet 12/09/16 12/26/16 Unknown Rx Ipratropium/Albuterol Sulfate 1 ampul IH TIDRT #30 ampul.neb 12/22/16 12/26/16 Unknown Rx [Duoneb 0.5 mg-3 mg/3 ml Soln] Ergocalciferol [Vitamin D2] 1 cap PO QWEEK 12/26/16 12/26/16 Unknown History Methazolamide [Neptazane] 50 mg PO BID 12/26/16 12/26/16 Unknown History Metoprolol [Lopressor TAB] 100 mg PO DAILY #30 tablet 01/01/17 Unknown Rx Rosuvastatin (Nf) [Crestor] 20 mg PO QHS #30 tablet 01/01/17 Unknown Rx amLODIPine [Norvasc] 10 mg PO DAILY #30 tablet 01/01/17 Unknown Rx ED Review of Systems ROS: Stated complaint: ABNORMAL LAB Other details as noted in HPI Comment: Unobtainable due to pts medical conditions Constitutional: denies: chills, fever Eyes: denies: eye pain, eye discharge, vision change ENT: denies: ear pain, throat pain Respiratory: denies: cough, shortness of breath, wheezing Cardiovascular: denies: chest pain, palpitations Gastrointestinal: denies: abdominal pain, nausea, diarrhea Genitourinary: denies: urgency, dysuria, discharge Musculoskeletal: denies: back pain, joint swelling, arthralgia Skin: denies: rash, lesions Neurological: denies: headache, weakness, paresthesias Physical Exam - Physical Exam Vital Signs: Vital Signs 01/01/17 01/01/17 16:49 16:56 Temperature 97.1 F L Pulse Rate 82 82 Respiratory 16 16 Rate Blood Pressure 107/58 107/61 [Left] O2 Sat by Pulse 99 99 Oximetry Physical Exam: GENERAL: The patient is well-developed well-nourished. HEENT: Normocephalic. Atraumatic. Extraocular motions are intact. Patient has moist mucous membranes. Pupils equal reactive to light bilaterally. NECK: Supple. Trachea is midline. CHEST/LUNGS: Clear to auscultation. There is no respiratory distress noted. HEART/CARDIOVASCULAR: Regular. There is no tachycardia. There is no gallop rub or murmur. ABDOMEN: Abdomen is soft, nontender. Patient has normal bowel sounds. SKIN: Skin is warm and dry. NEURO: The patient is awake, alert The patient is cooperative. The patient has normal speech. MUSCULOSKELETAL: There is no tenderness or deformity. There is no limitation range of motion. There is no evidence of acute injury. Patient has bilateral upper extremity dialysis grafts. ED Course Vital Signs 01/01/17 01/01/17 16:49 16:56 Temperature 97.1 F L Pulse Rate 82 82 Respiratory 16 16 Rate Blood Pressure 107/58 107/61 [Left] O2 Sat by Pulse 99 99 Oximetry ED Medical Decision Making - Medical Decision Making This is a 81-year-old female who presents to the emergency department from her [facility] because of concern for low blood pressure. The patient was discharged in [facility] at 3 PM this afternoon after spending a few days here admitted and then being discharged home by internal medicine. The patient got to her nursing facility and they had a blood pressure reading that was in the 90s and they sent her back for further evaluation. The same EMS crew that brought her to the facility are the ones who brought her back to the emergency department. They concur that there was no other physical complaints or concerns other than the single blood pressure reading by the facility. The patient was evaluated in the emergency department with a physical exam and multiple blood pressure readings. The lowest blood pressure reading obtained was the first one and it was a systolic of 107. It was rechecked at least 4 times over the next 25 minutes and her most recent blood pressure is 137/74. This appears to be a stable blood pressure. The patient has not gotten hypotensive and while she is not hypertensive it is certainly not dropping. I also went back and looked at multiple different visits for this patient at [facility] and she always tends to have a blood pressure in this region. Since the patient was just discharged and there are no physical complaints, I do not feel that any new labs or imaging is necessary on this patient. She'll be discharged back to her nursing facility but as always encouraged to return to the emergency department with any concerns, complaints or distress. Critical Care Time: No Critical care attestation.: If time is entered above; I have spent that time in minutes in the direct care of this critically ill patient, excluding procedure time. ED Disposition Clinical Impression: Blood pressure check Disposition: DISCHARGED TO HOME OR SELFCARE Is pt being admited?: No Condition: Stable Additional Instructions: You were seen today back in the emergency department because there was a borderline low blood pressure reading at the [facility]. Since you've been in the emergency department the blood pressure readings have been normal if not pre-hypertension with the most recent blood pressure reading being 137/79. Since you just were discharged from [facility] 2 hours ago, and the blood pressure appears to be stable as we have checked it multiple times over the past one hour, I feel your safe to return to your nursing facility. Return to the emergency department with any acute distress. Referrals: PRIMARY CARE [Primary Care Provider] - 3-5 Days Time of Disposition: 17:07
[2017-01-01 17:13] VITALS: BP 139/74
== END 2017-01-01 17:19 | disposition home or self-care (01) ==
LOC: ED 16:45
DX: R07.9 Chest pain, unspecified (principal); I50.9 Heart failure, unspecified; E11.9 Type 2 diabetes mellitus without complications; I12.0 Hypertensive chronic kidney disease with stage 5 chronic kidney disease or end stage renal disease; N18.6 End stage renal disease; Z99.2 Dependence on renal dialysis
CPT/HCPCS: 99283